=== PATIENT | female | born 1950 | race Caucasian/White ===

== ENCOUNTER → 2019-02-09 | Outpatient (REF) | payer MEDICARE | LOC: M SFHCPLAZ 17:29 | PROVIDERS: ATTEND Dermatology | DX: D23.5 Other benign neoplasm of skin of trunk (principal); L57.0 Actinic keratosis ==

== ENCOUNTER 2019-11-27 14:09 | Emergency (ER) | payer MEDICARE ==
[~2019-11-27] VITALS: Ht 167.6 cm; Wt 100.8 kg
[2019-11-27] MEDS ORDERED: ADVIL (14:20)
--- NOTE | 2019-11-27 15:18 | REP ---
Portable chest, 02:43 p.m., single AP view with the patient sitting: Comparison is the PA and lateral chest dated 09/15/2016. The lung hernandez are clear. The cardiac size is normal. The abilio, mediastinum, and skeletal structures are unremarkable. Impression: Negative portable chest. There is no interval change. Electronically Signed by Niraj Whaley MD 11/27/2019 03:09 P
[2019-11-27 15:23] LABS: BASO # 0.1 10^3/uL (0.0-0.2); BASO % 0.9 % (0.0-1.0); EOS # 0.5 10^3/uL (0.0-0.5); EOS % 5.5 % (0.0-3.0); HEMATOCRIT 46.2 % (36.0-47.0); HEMOGLOBIN 14.9 g/dl (12.0-15.5); LYMPH # 1.8 10^3/uL (1.5-5.0); LYMPH % 18.6 % (24.0-44.0); MEAN CORPUSCULAR HEMOGLOBIN 29.2 pg (27.0-33.0); MEAN CORPUSCULAR HGB CONC 32.3 g/dl (32.0-36.5); MEAN CORPUSCULAR VOLUME 90.4 fl (80.0-96.0); MONO # 0.8 10^3/uL (0.0-0.8); MONO % 8.8 % (0.0-5.0); NEUTROPHILS # 6.2 10^3/uL (1.5-8.5); NEUTROPHILS % 65.8 % (36.0-66.0); PLATELET COUNT, AUTOMATED 236 10^3/uL (150-450); RED BLOOD COUNT 5.11 10^6/uL (4.00-5.40); WHITE BLOOD COUNT 9.4 10^3/uL (4.0-10.0)
[2019-11-27 15:38] LABS: ALBUMIN 3.6 GM/DL (3.2-5.2); ALT/SGPT 26 U/L (12-78); BILIRUBIN,DIRECT < 0.1 MG/DL (0.0-0.2); BILIRUBIN,TOTAL 0.4 MG/DL (0.2-1.0); BLOOD UREA NITROGEN 12 MG/DL (7-18); CARBON DIOXIDE LEVEL 29 MEQ/L (21-32); CHLORIDE LEVEL 105 MEQ/L (98-107); CK-MB VALUE MASS 1.3 NG/ML (<3.6); CPK CREATINE PHOSPHOKINASE 72 U/L (26-192); CREATININE FOR GFR 0.75 MG/DL (0.55-1.30); GLOMERULAR FILTRATION RATE > 60.0 (>39); GLUCOSE, FASTING 92 MG/DL (70-100); LIPASE 262 U/L (73-393); MB/CK RELATIVE INDEX 1.81 (< OR =4); NT-PRO BNP 137 PG/ML (<125); POTASSIUM SERUM 3.9 MEQ/L (3.5-5.1); SODIUM LEVEL 138 MEQ/L (136-145); TOTAL PROTEIN 8.7 GM/DL (6.4-8.2); TROPONIN I < 0.02 NG/ML (< 0.10)
--- NOTE | 2019-11-27 16:44 | REP ---
Bilateral lower extremity deep vein duplex ultrasound: The deep veins demonstrate normal compression, normal Doppler color flow and normal Doppler waveforms with respiration augmentation from the popliteal veins to the common femoral veins bilaterally. Impression: There is no deep vein thrombus in the right or left lower extremities. 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 Electronically Signed by Niraj Whaley MD 11/27/2019 04:35 P
--- NOTE | 2019-11-27 16:47 | REP ---
CT of the chest without IV contrast: There are no comparison chest CT studies. Comparison is the portable plain film study performed earlier today. There are no infiltrates or pleural effusions. There are no masses or nodules. There is no mediastinal or axillary lymph node enlargement. The study is insensitive for hilar lymph node enlargement in the absence of IV contrast. The unenhanced thoracic aorta is unremarkable. Cardiac size is normal. There is no pericardial effusion. The visualized upper abdominal contents are unremarkable except for surgical clips in the gallbladder fossa. The Impression: Negative CT of the chest without IV contrast. Electronically Signed by Niraj Whaley MD 11/27/2019 04:38 P
--- NOTE | 2019-11-27 16:57 | REP ---
CT of the abdomen and pelvis without IV or bowel contrast: Comparison is 11/30/2007. The patient reportedly has an appendectomy and hysterectomy. The visualized lower lung hernandez are unremarkable. The unenhanced hepatic parenchyma, pancreas and spleen are unremarkable. There are surgical clips in the gallbladder fossa. The adrenals are unremarkable. There is a horseshoe kidney, as previously. Both right and left renal moiety is are unremarkable. The abdominal aorta is unremarkable. There is no periaortic adenopathy or mass. There is no bowel distension or obstruction. There is no focal or diffuse bowel wall thickening. There is no ascites, adenopathy or mass. Pelvis: The cecum and terminal ileum are unremarkable. The bladder is unremarkable. There is no adenopathy or ascites. The vaginal cuff and adnexa are unremarkable. The pelvic bowel loops are unremarkable. Impression: Cholecystectomy. Hysterectomy. Horseshoe kidney. Otherwise, negative CT study of the abdomen and pelvis. Electronically Signed by Niraj Whaley MD 11/27/2019 04:49 P
[2019-11-27] MEDS ORDERED: NS 1,000 ML IV SCH (18:13)
--- NOTE | 2019-11-27 20:42 | ECGEPIP ---
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
--- NOTE | 2019-11-27 20:45 | ECGEPIP ---
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
[2019-11-27 20:57] LABS: CK-MB VALUE MASS 1.4 NG/ML (<3.6); CPK CREATINE PHOSPHOKINASE 62 U/L (26-192); MB/CK RELATIVE INDEX 2.26 (< OR =4); TROPONIN I < 0.02 NG/ML (< 0.10)
[2019-11-27 21:16] VITALS: BP 162/82
== END 2019-11-27 21:40 | disposition home or self-care (01) ==
LOC: M ED 14:09
DX: B34.2 Coronavirus infection, unspecified (principal); I10 Essential (primary) hypertension; R06.02 Shortness of breath; M25.50 Pain in unspecified joint; M79.606 Pain in leg, unspecified; R22.43 Localized swelling, mass and lump, lower limb, bilateral; R68.83 Chills (without fever); L40.52 Psoriatic arthritis mutilans; G90.09 Other idiopathic peripheral autonomic neuropathy; J45.909 Unspecified asthma, uncomplicated; K52.9 Noninfective gastroenteritis and colitis, unspecified; M48.00 Spinal stenosis, site unspecified; I34.1 Nonrheumatic mitral (valve) prolapse; Q63.1 Lobulated, fused and horseshoe kidney; Z87.891 Personal history of nicotine dependence; Z91.041 Radiographic dye allergy status; Z88.2 Allergy status to sulfonamides; Z91.89 Other specified personal risk factors, not elsewhere classified

== ENCOUNTER → 2020-01-26 | Outpatient (CLI) | payer MEDICARE ==
[~2020-01-26] MED LIST: ADVIL
--- NOTE | 2020-01-26 15:09 | REPMRS ---
Patient History The patient states she had a clinical breast exam in January 2020. Patient is postmenopausal. Family history of endometrial cancer in sister, unknown cancer in sister, breast cancer in maternal grandmother. Digital Woman Screen Mammo: January 26, 2020 - Exam #: [id number] Bilateral CC and MLO view(s) were taken. Technologist: Jessica Jay, Technologist Prior study comparison: June 09, 2018, bilateral digital woman screen mammo, performed at [facility]. April 30, 2017, bilateral digital woman screen mammo, performed at [facility]. June 11, 2015, bilateral digital woman screen mammo, performed at [facility]. FINDINGS: The breast tissue is almost entirely fat. The Volpara volumetric breast density category is: A. There are stable fibroglandular elements in the upper outer quadrant of each breast unchanged. There has been no change in the appearance of the mammogram from the prior studies. There is no interval development of dominant mass, architectural distortion, or grouped microcalcification typical of malignancy. 3-D tomosynthesis shows no additional findings. Assessment: BI-RADS/ACR category 1 mammogram. Negative Mammogram. Recommendation Routine screening mammogram of both breasts in 1 year (for women over age 40). This patient's Lifetime Breast Cancer RIsk is estimated at 4.1 %. This mammogram was interpreted with the aid of an FDA-approved computer-aided dectection system. Electronically Signed By: Gordon Meier MD 01/26/20 [id number]
== END ==
LOC: M WHC 13:04
PROVIDERS: ATTEND Advanced Practice Midwife
DX: Z12.31 Encounter for screening mammogram for malignant neoplasm of breast (principal); Z78.0 Asymptomatic menopausal state; Z80.3 Family history of malignant neoplasm of breast; Z80.49 Family history of malignant neoplasm of other genital organs; Z80.8 Family history of malignant neoplasm of other organs or systems
CPT/HCPCS: 77063; 77067; G0463

== ENCOUNTER → 2021-02-13 | Outpatient (CLI) | payer MEDICARE ==
--- NOTE | 2021-02-13 11:17 | REPVR ---
PROCEDURE INFORMATION: Exam: CT Chest Without Contrast; Diagnostic Exam date and time: 02/13/2021 10:31 AM Age: 70 years old Clinical indication: Shortness of breath; Additional info: Abn findings lung field SOB h/o smoking TECHNIQUE: Imaging protocol: Diagnostic computed tomography of the chest without contrast. 3D rendering (Not supervised by radiologist): MIP and/or 3D reconstructed images were created by the technologist. Radiation optimization: All CT scans at this facility use at least one of these dose optimization techniques: automated exposure control; mA and/or kV adjustment per patient size (includes targeted exams where dose is matched to clinical indication); or iterative reconstruction. COMPARISON: CT Chest without contrast 11/27/2019 4:13 PM FINDINGS: Lungs: Unremarkable. No consolidation. No masses. Pleural spaces: Stable mild pleural thickening in the apices of the lungs. Stable small peripheral pleural tag the right perhaps may be slightly smaller on this exam. Heart: Unremarkable. No cardiomegaly. No pericardial effusion. Aorta: Unremarkable. No aortic aneurysm. Lymph nodes: Unremarkable. No enlarged lymph nodes. Bones/joints: Unremarkable. No acute fracture. Soft tissues: Unremarkable. Other findings: Stable mild vascular calcifications. Stable upper abdomen. IMPRESSION: No acute findings. Electronically signed by: Keith Dee On 02/13/2021 11:17:26 AM
== END ==
LOC: M RAD 10:22
PROVIDERS: ATTEND Nurse Practitioner Adult Health
DX: R06.02 Shortness of breath (principal); R91.8 Other nonspecific abnormal finding of lung field; Z87.891 Personal history of nicotine dependence

== ENCOUNTER → 2021-03-13 | Outpatient (CLI) | payer MEDICARE ==
[~2021-03-13] MED LIST changes: +METHACHOLINE KIT (J7674) INH ONE
--- NOTE | 2021-03-13 09:57 | PFTRPT ---
Site: [facility], [address] [place], [address] ID: [id number] Name: REAL HUDSON Visit Date: 03/13/2021 Second ID: [id number] Referring Doctor: Maritza Jc Reviewing Doctor: Jose Tello MD Filter Tank Operator: Bubba CHAUDHRY RRT Age: 71 : 1950 Sex: Female Race: Height: 66.00 Inches Weight: 215.00 Lbs BSA: 2.06 Order IDs: [id number] Requested Test(s): <RESP-PFT.METH CHAL> Diagnosis: R06.02 of albuterol for post bronchodilator. Review Status: Not Reviewed Pre-Bronch Post-Bronch Pred Actual %Pred Actual %Chng SPIROMETRY FVC (L) 3.14 2.37 75 2.39 FEV1 (L) 2.37 1.88 79 1.81 -3 FEV1/FVC (%) 75 79 105 76 -4 FEF 25% (L/sec) 4.88 3.91 80 5.17 32 FEF 50% (L/sec) 3.25 2.00 61 1.68 -16 FEF 75% (L/sec) 0.91 0.71 77 0.56 -21 FEF 25-75% (L/sec) 1.87 1.63 87 1.42 -12 FEF Max (L/sec) 5.72 5.04 88 5.28 4 FIVC (L) 2.06 2.43 17 FIF 50% (L/sec) 3.52 2.06 58 4.43 114 FIF Max (L/sec) 2.07 4.52 118 Expiratory Time (sec) 6.33 6.19 -2 Back Extrap Vol (L) 0.07 0.10 48 Time To FEFmax (sec) 0.078 0.104 32
== END ==
LOC: M CARPUL 08:45
PROVIDERS: ATTEND Nurse Practitioner Adult Health
DX: R06.02 Shortness of breath (principal)
CPT/HCPCS: 94070; 95070; J7674

== ENCOUNTER → 2021-04-21 | Outpatient (CLI) | payer MEDICARE ==
[~2021-04-21] MED LIST changes: -METHACHOLINE KIT (J7674) INH ONE
--- NOTE | 2021-04-21 13:23 | REP ---
INDICATION: SOB,COUGH. COMPARISON: Portable chest, 11/27/2019. TECHNIQUE: PA and lateral chest images were performed. FINDINGS: There is stable linear scarring in the lingula. The lungs are otherwise clear. The heart borders and mediastinum normal. The upper abdominal bowel gas pattern is normal. There is multilevel degenerative disc disease of the thoracic spine. IMPRESSION: No evidence of acute cardiopulmonary pathology. Stable linear scarring in the lingula. <Electronically signed by Edgar Chavez > 04/21/21 [id number]
== END ==
LOC: M PLALAB 11:42
PROVIDERS: ATTEND Physician Assistant
DX: R06.02 Shortness of breath (principal); R05 Cough; J98.4 Other disorders of lung

== ENCOUNTER → 2021-05-07 | Outpatient (CLI) | payer MEDICARE ==
[2021-05-07 14:16] LABS: HEMATOCRIT 38.8 % (36.0-47.0); HEMOGLOBIN 12.4 g/dl (12.0-15.5); MEAN CORPUSCULAR HEMOGLOBIN 30.5 pg (27.0-33.0); MEAN CORPUSCULAR VOLUME 95.6 fl (80.0-96.0); PLATELET COUNT, AUTOMATED 185 10^3/uL (150-450); RED BLOOD COUNT 4.06 10^6/uL (4.00-5.40); WHITE BLOOD COUNT 11.3 10^3/uL (4.0-10.0)
[2021-05-07 14:48] LABS: C REACTIVE PROTEIN QUANTITATIV 1.16 MG/DL (0.00-0.30); RHEUMATOID FACTOR QUANT < 10.0 IU/ML (<15.0); URIC ACID 5.6 MG/DL (2.6-6.0)
[2021-05-07 14:55] LABS: ERYTHROCYTE SEDIMENTATION RATE 37 mm/hr (0-30)
== END ==
LOC: M PLALAB 11:42
PROVIDERS: ATTEND Physician Assistant Surgical
DX: M17.12 Unilateral primary osteoarthritis, left knee (principal); J45.909 Unspecified asthma, uncomplicated

== ENCOUNTER → 2021-06-03 | Outpatient (CLI) | payer MEDICARE ==
--- NOTE | 2021-06-05 12:02 | REPVR ---
PROCEDURE INFORMATION: Exam: MR Lumbar Spine Without Contrast Exam date and time: 06/03/2021 12:22 PM Age: 71 years old Clinical indication: Low back pain; Additional info: Oa of lt knee TECHNIQUE: Imaging protocol: Multiplanar magnetic resonance images of the lumbar spine without intravenous contrast. COMPARISON: None available. FINDINGS: Vertebrae: There is 5 mm of grade 1 anterolisthesis of L4 with respect to L5. Normal vertebral body alignment is otherwise preserved. Vertebral body heights are within normal limits. Spinal cord: The conus medullaris terminates at L1/2. The patient has a congenitally narrowed spinal canal. L1-L2: There is shallow disc bulging. There is mild facet hypertrophy. The spinal canal and neural foramina are patent. L2-L3: There is shallow disc bulging. There is moderate facet hypertrophy. The spinal canal and neural foramina are patent. L3-L4: There is diffuse disc bulging. There is prominence of the dorsal epidural fat. There is moderate facet and ligamentous hypertrophy. There is severe canal stenosis, with central clumping of nerve roots. There is bukd-nq-kdilmcox right neural foraminal narrowing. L4-L5: There is diffuse disc bulging/uncovering related to listhesis. There is severe facet hypertrophy. There is severe canal stenosis, with central clumping of nerve roots. There is moderate bilateral neural foraminal narrowing. L5-S1: There is diffuse disc bulging. There is moderate facet hypertrophy. There is moderate bilateral neural foraminal narrowing. Soft tissues: Unremarkable. Renal: There is a horseshoe configuration of the kidneys. IMPRESSION: Degenerative disc disease and spondylosis in a patient with a congenitally narrowed spinal canal and focal prominence of the dorsal epidural fat. Changes contribute to severe canal stenosis at L3/4 and L4/5. There is multilevel sond-ja-geftrqgz neural foraminal narrowing. Electronically signed by: Selma Hutchinson On 06/05/2021 12:01:54 PM
== END ==
LOC: M PLAIMG 11:34
PROVIDERS: ATTEND Physician Assistant Surgical
DX: M17.12 Unilateral primary osteoarthritis, left knee (principal); M51.26 Other intervertebral disc displacement, lumbar region; M48.061 Spinal stenosis, lumbar region without neurogenic claudication; M47.816 Spondylosis without myelopathy or radiculopathy, lumbar region

== ENCOUNTER → 2021-07-18 | Outpatient (CLI) | payer MEDICARE ==
[~2021-07-18] MED LIST changes: +ACET-897 PO; +ADVA115A; +ALBU8.5H; +APPLCAP PO; +D31000TA2 PO; +DULO1CAP6; +HYDR12.55; +LOSA50TA28; +RA B1TAB2 PO
== END ==
LOC: M WHC 14:21
PROVIDERS: ATTEND Advanced Practice Midwife
DX: Z01.419 Encounter for gynecological examination (general) (routine) without abnormal findings (principal); Z12.31 Encounter for screening mammogram for malignant neoplasm of breast; Z78.0 Asymptomatic menopausal state; Z80.49 Family history of malignant neoplasm of other genital organs; Z80.3 Family history of malignant neoplasm of breast
CPT/HCPCS: 77063; 77067; G0101

== ENCOUNTER → 2021-08-23 | Outpatient (CLI) | payer MEDICARE ==
[~2021-08-23] MED LIST changes: -LOSA50TA28; +LOSA50TA88
== END ==
LOC: M LABSMTC 10:08
PROVIDERS: ATTEND Anesthesiology
DX: Z01.812 Encounter for preprocedural laboratory examination (principal); Z20.822 Contact with and (suspected) exposure to COVID-19

== ENCOUNTER 2021-08-28 12:17 | Day surgery (SDC) | payer MEDICARE ==
[~2021-08-28] VITALS: Ht 167.6 cm; Wt 95.3 kg
[~2021-08-28 12:17] MED LIST changes: +NS 1,000 ML IV ONE
--- OUTSIDE RECORDS SUMMARY | 2021-08-28 12:24 | CCD | Continuity of Care Document ---
Author Ary Carballo ANP Organization Unknown Address [address] [place] [address] Phone [phone] Care Team Providers Care Lock Assembler Name Role Phone AUTM Unavailable Yoseph Palacios AUTM [phone] Denny Augustin AUTM Problems Description No Information Available Social History Type Date Description Comments Sex Unknown Tobacco Use Start: 09/20/56 End: 09/20/87 Patient is a forme r smoker hx of 1/2-1 ppd Smoking Status Reviewed: 06/23/21 Patient is a former smoker hx of 1/2-1 ppd Allergies, Adverse Reactions, Alerts Active Allergies Criticality Reaction | Severity Comments Date Latex Unable to assess criticality 01/27/2021 Inactive Allergies Contrast Dye Unable to assess criticality 01/27/2021 Medications Active Medications SIG Qnty Indications Ordering Provide r Date Advair HFA 115-21mcg/Act Aerosol 2 puff twice a day 12gm J45.40 DONNA Toro 03/19/2021 Albuterol Sulfate HFA 108(90Base) mcg/Act Aerosol 2 puffs four times a day as needed 8.500gm DONNA Benson 02/20/2021 Aerochamber Plus Rupesh-Vu Misc use with inhaler as needed 1units R06.02 DONNA Toro 02/20/2021 Vitamin B 12 500mcg Tablets 1 tab by mouth every day Unknown Aspirin [address] 1 tab by mouth every day Unknown Cymbalta 60mg Caps DR Part 1 tab by mouth every day Unknown Hydrochlorothiazide 12.5mg Tablets 1 tab by mouth every day Unknown Losartan Potassium 50mg Tablets 1 tab by mouth every day Unknown Multivitamin Tablets 1 tab by mouth every day Unknown Immunizations Description No Information Available Vital Signs Date Vital Result Comment 06/23/2021 10:26am BP Systolic 126 mmHg BP Diastolic 80 mmHg Heart Rate 103 /min O2 % BldC Oximetry 91 % Respiratory Rate 20 /min Height 66 inches 5'6" Weight 217.00 lb BMI (Body Mass Index) 35.0 kg/m2 [place] Body Weight 130 lb Weight 98.431 kg BSA (Body Surface Area) 2.07 m2 05/06/2021 9:09am BP Systolic 118 mmHg BP Diastolic 68 mmHg Heart Rate 87 /min O2 % BldC Oximetry 96 % Height 66 inches 5'6" Weight 226.00 lb BMI (Body Mass Index) 36.5 kg/m2 [place] Body Weight 130 lb Weight 102.514 kg BSA (Body Surface Area) 2.11 m2 Results Test Acquired Date Facility Test Result H/L Range Note [facility] 06/23/2021 [facility] SEE IMAGE FVC-Pred 3.14 L FVC-Pre 2.49 L FVC-%Pred-Pre 79 L FVC-LLN 2.40 L Fev1-Pred 2.37 L Fev1-Pre 1.72 L Fev1-%Pred-Pre 72 L Fev1-LLN 1.74 L Fev6-Pred 2.99 L Fev6-Pre 2.38 L Fev6-%Pred-Pre 79 L Fev6-LLN 2.27 L Lpj2bpl-Aide 75 % Myj1fme-Ibc 69 % Hmi2ohq-%Pred-Pre 91 % Joh9evt-RIV 65 % Hln9vel-Lyhg 95 % Rcu9yds-Zzf 95 % Ncg9xpv-%Pred-Pre 100 % FEFMax-Pred 5.72 L/E/sec FEFMax-Pre 5.09 L/E/sec FEFMax-%Pred-Pre 88 L/E/sec FEFMax-LLN 3.90 L/E/sec Nun5164-Fhzi 1.87 L/E/sec Ici9012-Zot 1.01 L/E/sec Kla5939-%Pred-Pre 53 L/E/sec Gfl4815-EZG 0.55 L/E/sec ExpTime-Pre 8.98 sec Gju5bss8-Shdd 79 % Xlw6ncc7-Uru 72 % Wdf1xho2-%Pred-Pre 91 % Ufe9jca7-ZYF 70 % FVL/[place] 01/27/2021 [facility] SEE IMAGE FVC-Pred 3.17 L FVC-Pre 2.32 L FVC-%Pred-Pre 73 L FVC-LLN 2.44 L Fev1-Pred 2.40 L Fev1-Pre 1.77 L Fev1-%Pred-Pre 73 L Fev1-LLN 1.77 L Fev6-Pred 3.03 L Fev6-Pre 2.32 L Fev6-%Pred-Pre 76 L Fev6-LLN 2.31 L Lxa9ybn-Sbgz 76 % Ylf0evm-Hfr 76 % Myg0hqt-%Pred-Pre 100 % Iqc6uyd-QEW 66 % Fpx1nwt-Xttr 96 % Crq3txd-Hpn 100 % Cky8vtj-%Pred-Pre 104 % FEFMax-Pred 5.80 L/E/sec FEFMax-Pre 4.61 L/E/sec FEFMax-%Pred-Pre 79 L/E/sec FEFMax-LLN 3.98 L/E/sec Kdy0445-Ujqx 1.92 L/E/sec Qfe5711-Tun 1.40 L/E/sec Gni4988-%Pred-Pre 72 L/E/sec Mzh3540-FPS 0.60 L/E/sec ExpTime-Pre 5.12 sec Esf0hvq5-Udsv 79 % Uwy2zjg1-Vpz 76 % Kwk4sei3-%Pred-Pre 96 % Ydg1tay8-WID 70 % Procedures Date Code Description Status 05/06/2021 44964 Office/Outpatient Established Lo w MDM 20-29 Min Completed 05/06/2021 81435 Spirometry Completed 03/19/2021 36452 Office/Outpatient Established Mo d MDM 30-39 Min Completed 02/20/2021 26496 Office/Outpatient Established Mo d MDM 30-39 Min Completed 01/30/2021 37988 Diffusing Capacity Completed 01/30/2021 02673 Plethysmography Determination Nazia ng Volumes & Per Airway Resist Completed 01/30/2021 34026 Bronchospasm Evaluation Complete d 01/27/2021 68901 Office/Outpatient New Moderate M DM 45-59 Minutes Completed 01/27/2021 13016 Spirometry Completed Medical Devices Description No Information Available Encounters Type Date Location Provider Dx Diagnosis Office Visit 05/06/2021 9:30a [facility] Maritza To july, DONNA J45.40 Moderate persistent asthma, uncomplicate d Office Visit 03/19/2021 4:00p [facility] Maritza To july, ANP J45.40 Moderate persistent asthma, uncomplicate d Office Visit 02/20/2021 2:00p [facility] Maritza To july, ANP R06.02 Shortness of breath R06.2 Wheezing Office Visit 01/27/2021 10:00a [facility] Maritza To july, ANP R06.02 Shortness of breath R06.2 Wheezing R06.83 Snoring Assessments Date Code Description Provider 06/23/2021 J45.40 Moderate persistent asthma, unco mplicated Maritza Chavo, ANP 06/23/2021 R06.02 Shortness of breath Maritza Chavo, ANP 05/06/2021 J45.40 Moderate persistent asthma, unco mplicated Maritza Chavo, ANP 03/19/2021 J45.40 Moderate persistent asthma, unco mplicated Maritza Chavo, ANP 02/20/2021 R06.02 Shortness of breath Maritza Chavo, ANP 02/20/2021 R06.2 Wheezing Maritza Chavo, ANP 01/30/2021 R06.02 Shortness of breath Pulmonary [facility] 01/27/2021 R06.02 Shortness of breath Maritza Chavo, ANP 01/27/2021 R06.2 Wheezing Maritza Chavo, ANP 01/27/2021 R06.83 Snoring Maritza Tony ANP Plan of Treatment Future Appointment(s):* 10/02/2021 11:30 am - DONNA Toro at [facility] * 06/26/2021 12:00 pm - Nocturnal Oximetry at [facility] * 07/14/2021 9:45 am - BARBARA Zarate at [facility] 06/23/2021 - DONNA Toro* J45.40 Moderate persistent asthma, uncomplicated * R06.02 Shortness of breath * * New Labs:* [facility]VL/[facility], Scheduled: 10/02/21 * New Orders:* Nocturnal Oximetry, Scheduled: 06/26/21 * Follow up:* Follow up 3 months with fvl/spirometry. Nocturnal oximetry-I will call with results. Functional Status Description No Information Available Mental Status Description No Information Available Referrals Refer to Dr Reason for Referral Status Appt Date Arlene MCFADDEN, Jacob Arrington MD COLONOSCOPY Scheduled [address] [place] [phone] Radiology/Procedure 39312 Closed 02/13/2021 Maritza Tony A.N.P. SOB Closed 01/27/2021 [facility] [address] [place], [place] [address] [phone]
--- OUTSIDE RECORDS SUMMARY | 2021-08-28 12:24 | CCD | Continuity of Care Document ---
Author Author Ary MATTHEWS PA Organization Unknown Address [address] [facility], [address] [place] [address] Phone [phone] Care Team Providers Care Electronics Tester Name Role Phone AUTM Unavailable Yoseph Palacios AUTM [phone] Denny Augustin AUTM Problems Active Problems Provider Date Essential hypertension Onset: 07/10/2021 Social History Type Date Description Comments Sex Unknown ETOH Use 3 A Week Tobacco Use Start: 09/20/56 End: 09/20/87 Patient is a forme r smoker 1 ppd for 30 years quit 1987 Recreational Drug Use Denies Drug Use Smoking Status Reviewed: 06/23/21 Patient is a former smoker 1 ppd for 30 years quit 1987 Allergies and adverse reactions Active Allergies Criticality Reaction | Severity Comments Date Latex Unable to assess criticality Red Abrasions 01/27/2021 Inactive Allergies Contrast Dye Unable to assess criticality 01/27/2021 Medications Active Medications SIG Qnty Indications Ordering Provide r Date Advair HFA 115-21mcg/Act Aerosol 2 puff twice a day 12gm J45.40 Maritza Tony, A.N.P. 03/19/2021 Albuterol Sulfate HFA 108(90Base) mcg/Act Aerosol 2 puffs four times a day as needed 8.500gm Maritza arredondo A.N.P. 02/20/2021 Aerochamber Plus Rupesh-Vu Misc use with inhaler as needed 1units R06.02 Maritza Tony, A.N.P. 02/20/2021 Vitamin B 12 500mcg Tablets 1 tab by mouth every day Unknown Aspirin [address] 1 tab by mouth every day Unknown Cymbalta 60mg Caps DR Part 1 tab by mouth 2 x every day Unknown Hydrochlorothiazide 12.5mg Tablets 1 tab by mouth every day Unknown Losartan Potassium 50mg Tablets 1 tab by mouth every day Unknown Multivitamin Tablets 1 tab by mouth every day Unknown Turmeric Curcumin 500mg Capsules 1 cap by mouth every day Unknown Immunizations Description No Information Available Vital Signs Date Vital Result Comment 07/14/2021 9:36am BP Systolic 158 mmHg BP Diastolic 74 mmHg Body Temperature 96.0 F Height 66 inches 5'6" Weight 214.38 lb BMI (Body Mass Index) 34.6 kg/m2 [place] Body Weight 130 lb Weight 97.240 kg BSA (Body Surface Area) 2.06 m2 06/23/2021 10:26am BP Systolic 126 mmHg BP Diastolic 80 mmHg Heart Rate 103 /min O2 % BldC Oximetry 91 % Respiratory Rate 20 /min Height 66 inches 5'6" Weight 217.00 lb BMI (Body Mass Index) 35.0 kg/m2 [place] Body Weight 130 lb Weight 98.431 kg BSA (Body Surface Area) 2.07 m2 Results Test Acquired Date Facility Test Result H/L Range Note FVL/Chucho 06/23/2021 [employer] PDFReport SEE IMAGE FVC-Pred 3.14 L FVC-Pre 2.49 L FVC-%Pred-Pre 79 L FVC-LLN 2.40 L Fev1-Pred 2.37 L Fev1-Pre 1.72 L Fev1-%Pred-Pre 72 L Fev1-LLN 1.74 L Fev6-Pred 2.99 L Fev6-Pre 2.38 L Fev6-%Pred-Pre 79 L Fev6-LLN 2.27 L Owv3wal-Bwgv 75 % Psm2qdk-Tsg 69 % Bco1nyf-%Pred-Pre 91 % Tia0uqa-GRZ 65 % Fjy9nyh-Hiwx 95 % Sbh5fez-Hmk 95 % Dnq2usw-%Pred-Pre 100 % FEFMax-Pred 5.72 L/E/sec FEFMax-Pre 5.09 L/E/sec FEFMax-%Pred-Pre 88 L/E/sec FEFMax-LLN 3.90 L/E/sec Wgx0285-Wgvl 1.87 L/E/sec Gvk1910-Axc 1.01 L/E/sec Tfj2372-%Pred-Pre 53 L/E/sec Drn4656-TNY 0.55 L/E/sec ExpTime-Pre 8.98 sec Wkl3qfg2-Mzxn 79 % Snl1hhj7-Vyi 72 % Akw4dxr2-%Pred-Pre 91 % Ebi7wch6-RUN 70 % FVL/Chucho 01/27/2021 Sovicell PDFReport SEE IMAGE FVC-Pred 3.17 L FVC-Pre 2.32 L FVC-%Pred-Pre 73 L FVC-LLN 2.44 L Fev1-Pred 2.40 L Fev1-Pre 1.77 L Fev1-%Pred-Pre 73 L Fev1-LLN 1.77 L Fev6-Pred 3.03 L Fev6-Pre 2.32 L Fev6-%Pred-Pre 76 L Fev6-LLN 2.31 L Obg5fdr-Qiep 76 % Nxf2ofp-Hgz 76 % Ezh9wjf-%Pred-Pre 100 % Kzx7jwh-FHC 66 % Tiz0sot-Oukb 96 % Qpo5tlo-Ioz 100 % Puf0fkk-%Pred-Pre 104 % FEFMax-Pred 5.80 L/E/sec FEFMax-Pre 4.61 L/E/sec FEFMax-%Pred-Pre 79 L/E/sec FEFMax-LLN 3.98 L/E/sec Zsu9111-Vwhz 1.92 L/E/sec Kag3184-Dir 1.40 L/E/sec Yyu5519-%Pred-Pre 72 L/E/sec Aud9846-QTD 0.60 L/E/sec ExpTime-Pre 5.12 sec Mfq5nco4-Xksb 79 % Pjn9szr2-Dzf 76 % Wlz0doy8-%Pred-Pre 96 % Ibm0xur4-HUW 70 % Procedures Date Code Description Status 06/23/2021 79388 Office/Outpatient Established Mo d MDM 30-39 Min Completed 06/23/2021 47332 Spirometry Completed 05/06/2021 87358 Office/Outpatient Established Lo w MDM 20-29 Min Completed 05/06/2021 60390 Spirometry Completed 03/19/2021 90488 Office/Outpatient Established Mo d MDM 30-39 Min Completed 02/20/2021 17403 Office/Outpatient Established Mo d MDM 30-39 Min Completed 01/30/2021 06370 Diffusing Capacity Completed 01/30/2021 60872 Plethysmography Determination Nazia ng Volumes & Per Airway Resist Completed 01/30/2021 35899 Bronchospasm Evaluation Complete d 01/27/2021 49813 Office/Outpatient New Moderate M DM 45-59 Minutes Completed 01/27/2021 40221 Spirometry Completed Medical Devices Description No Information Available Encounters Type Date Location Provider Dx Diagnosis Office Visit 06/23/2021 10:30a [facility] Maritza To wne, A.N.P. J45.40 Moderate persistent asthma, uncomplicate d R06.02 Shortness of breath Office Visit 05/06/2021 9:30a [facility] Maritza To wne, A.N.P. J45.40 Moderate persistent asthma, uncomplicate d Office Visit 03/19/2021 4:00p [facility] Marizta To wne, A.N.P. J45.40 Moderate persistent asthma, uncomplicate d Office Visit 02/20/2021 2:00p [facility] Maritza To wne, A.N.P. R06.02 Shortness of breath R06.2 Wheezing Office Visit 01/27/2021 10:00a [facility] Maritza To wne, A.N.P. R06.02 Shortness of breath R06.2 Wheezing R06.83 Snoring Assessments Date Code Description Provider 07/14/2021 Z12.11 Encounter for screening for ab gnant neoplasm of colon BARBARA Zarate 07/14/2021 K57.30 Diverticulosis of la rge intestine without perforation or abscess without bleeding BARBARA Zarate 07/14/2021 K64.9 Unspecified hemorrhoids BARBARA Vázquez 06/23/2021 J45.40 Moderate persistent asthma, unco mplicated Maritza Tony, A.N.P. 06/23/2021 R06.02 Shortness of breath Maritza Tony, A.N.P. 05/06/2021 J45.40 Moderate persistent asthma, unco mplicated Maritza Chavo, A.N.P. 03/19/2021 J45.40 Moderate persistent asthma, unco mplicated Maritza Chavo, A.N.P. 02/20/2021 R06.02 Shortness of breath Maritza Chavo, A.N.P. 02/20/2021 R06.2 Wheezing Maritza Chavo, A.N. P. 01/30/2021 R06.02 Shortness of breath Pulmonary La [facility] 01/27/2021 R06.02 Shortness of breath Maritza Chavo, A.N.P. 01/27/2021 R06.2 Wheezing Maritza Chavo, A.N. P. 01/27/2021 R06.83 Snoring Maritza Beee, A.N. P. Plan of Treatment Future Appointment(s):* 10/02/2021 11:30 am - Maritza Tony, A.N.P. at [facility] 07/14/2021 - BARBARA Zarate* Z12.11 Encounter for screening for malignant neoplasm of colon * K57.30 Diverticulosis of large intestine without perforation or abscess without bleeding * K64.9 Unspecified hemorrhoids Functional Status Description No Information Available Mental Status Description No Information Available Referrals Refer to Reason for Referral Status Appt Date Jacob Jacobs JR, MD COLONOSCOPY Scheduled [address] [address] [phone] Radiology/Procedure [id number] Closed 02/13/2021
--- OUTSIDE RECORDS SUMMARY | 2021-08-28 12:24 | CCD | Continuity of Care Document ---
Author Ary Carballo ANP Organization Unknown Address [address] [place] [address] Phone [phone] Care Team Providers Care Director Of Distribution Name Role Phone AUTM Unavailable Yoseph Palacios AUTM [phone] Denny Augustin AUTM [phone] Problems Description No Information Available Social History Type Date Description Comments Sex Unknown Tobacco Use Start: 09/20/56 End: 09/20/87 Patient is a forme r smoker hx of 12-1 ppd Smoking Status Reviewed: 06/23/21 Patient is a former smoker hx of 1/2-1 ppd Allergies and adverse reactions Active Allergies Criticality [...] lb BMI (Body Mass Index) 35.0 kg/m2 [place] Body Weight 130 lb Weight 98.431 kg BSA (Body Surface Area) 2.07 m2 05/06/2021 9:09am BP Systolic 118 mmHg BP Diastolic 68 mmHg Heart Rate 87 /min O2 % BldC Oximetry 96 % Height 66 inches 5'6" Weight 226.00 lb BMI (Body Mass Index) 36.5 kg/m2 [place] Body Weight 130 lb Weight 102.514 kg BSA (Body Surface Area) 2.11 m2 Results Test Acquired Date Facility Test Result H/L Range Note FVL/Stephen 06/23/2021 [employer] PDFReport SEE IMAGE FVC-Pred 3.14 L FVC-Pre 2.49 L FVC-%Pred-Pre 79 L FVC-LLN 2.40 L Fev1-Pred 2.37 L Fev1-Pre 1.72 L Fev1-%Pred-Pre 72 L Fev1-LLN 1.74 L Fev6-Pred 2.99 L Fev6-Pre 2.38 L Fev6-%Pred-Pre 79 L Fev6-LLN 2.27 L Ayu6pwy-Xzzh 75 % Tja6wtx-Low 69 % Mkj0mnk-%Pred-Pre 91 % Ylv7ewy-EXL 65 % Sjb4ybp-Dhhs 95 % Jzs2dke-Pyr 95 % Trk7irg-%Pred-Pre 100 % FEFMax-Pred 5.72 L/E/sec FEFMax-Pre 5.09 L/E/sec FEFMax-%Pred-Pre 88 L/E/sec FEFMax-LLN 3.90 L/E/sec Hjl6359-Fgoy 1.87 L/E/sec Xlm9883-Hfz 1.01 L/E/sec Vin8206-%Pred-Pre 53 L/E/sec Tci9759-VYW 0.55 L/E/sec ExpTime-Pre 8.98 sec Fan8iqn0-Dnpj 79 % Yyc4nym9-Jsr 72 % Kat8iku6-%Pred-Pre 91 % Ypn8rxp8-AVO 70 % FVL/Stephen 01/27/2021 Dekkun PDFReport SEE IMAGE FVC-Pred 3.17 L FVC-Pre 2.32 L FVC-%Pred-Pre 73 L FVC-LLN 2.44 L Fev1-Pred 2.40 L Fev1-Pre 1.77 L Fev1-%Pred-Pre 73 L Fev1-LLN 1.77 L Fev6-Pred 3.03 L Fev6-Pre 2.32 L Fev6-%Pred-Pre 76 L Fev6-LLN 2.31 L Khj7ykg-Arim 76 % Fgd1xom-Ytt 76 % Cyx7rcv-%Pred-Pre 100 % Bmq0geq-XHR 66 % Eiq5wlz-Ctvc 96 % Zob7jif-Bmc 100 % Yuz4zuz-%Pred-Pre 104 % FEFMax-Pred 5.80 L/E/sec FEFMax-Pre 4.61 L/E/sec FEFMax-%Pred-Pre 79 L/E/sec FEFMax-LLN 3.98 L/E/sec Kkj2074-Sllb 1.92 L/E/sec Erq0017-Jta 1.40 L/E/sec Osp8356-%Pred-Pre 72 L/E/sec Rum4035-OWZ 0.60 L/E/sec ExpTime-Pre 5.12 sec Jsl8ycc5-Emcw 79 % Rnr3fib8-Mtw 76 % Jue2fbv5-%Pred-Pre 96 % Rew2pbu1-YBX 70 % Procedures Date Code Description Status 06/23/2021 07639 Office/Outpatient Established Mo d MDM 30-39 Min Completed 06/23/2021 56925 Spirometry Completed 05/06/2021 11461 Office/Outpatient Established Lo w MDM 20-29 Min Completed 05/06/2021 52136 Spirometry Completed 03/19/2021 43460 Office/Outpatient Established Mo d MDM 30-39 Min Completed 02/20/2021 56019 Office/Outpatient Established Mo d MDM 30-39 Min Completed 01/30/2021 12921 Diffusing Capacity Completed 01/30/2021 38929 Plethysmography Determination Nazia ng Volumes & Per Airway Resist Completed 01/30/2021 51509 Bronchospasm Evaluation Complete d 01/27/2021 96181 Office/Outpatient New Moderate M DM 45-59 Minutes Completed 01/27/2021 64323 Spirometry Completed Medical Devices Description No Information Available Encounters Type Date Location Provider Dx Diagnosis Office Visit 06/23/2021 10:30a [facility] Maritza To [facility], ANP J45.40 Moderate persistent asthma, uncomplicate d R06.02 Shortness of breath Office Visit 05/06/2021 9:30a [facility] Maritza To [facility], ANP J45.40 Moderate persistent asthma, uncomplicate d Office Visit 03/19/2021 4:00p [facility] Maritza To [facility], ANP J45.40 Moderate persistent asthma, uncomplicate d Office Visit 02/20/2021 2:00p [facility] Maritza To gregory ANP R06.02 Shortness of breath R06.2 Wheezing Office Visit 01/27/2021 10:00a [facility] Maritza To [facility], ANP R06.02 Shortness of breath R06.2 Wheezing R06.83 Snoring Assessments Date Code Description Provider 06/23/2021 J45.40 Moderate persistent asthma, unco mplicated Maritza Tony, ANP 06/23/2021 R06.02 Shortness of breath Maritza Tony, ANP 05/06/2021 J45.40 Moderate persistent asthma, unco mplicated Maritza Chavo, ANP 03/19/2021 J45.40 Moderate persistent asthma, unco mplicated Maritza Chavo, ANP 02/20/2021 R06.02 Shortness of breath Maritza Chavo, ANP 02/20/2021 R06.2 Wheezing Maritza Chavo, ANP 01/30/2021 R06.02 Shortness of breath Pulmonary La b 01/27/2021 R06.02 Shortness of breath Maritza Chavo, ANP 01/27/2021 R06.2 Wheezing Maritza Tony, ANP 01/27/2021 R06.83 Snoring DONNA Toro Plan of Treatment Future Appointment(s):* 10/02/2021 11:30 am - DONNA Toro at [facility] * 06/26/2021 12:00 pm - Nocturnal Oximetry at [facility] * 07/14/2021 9:45 am - BARBARA Zarate at [facility] 06/23/2021 - DONNA Toro* J45.40 Moderate persistent asthma, uncomplicated * R06.02 Shortness of breath * * New Labs:* FVL/Chucho, Scheduled: 10/02/21 * New Orders:* Nocturnal Oximetry, Scheduled: 06/26/21 * Follow up:* Follow up 3 months with fvl/spirometry. Nocturnal oximetry-I will call with results. Functional Status Description No Information Available Mental Status Description No Information Available Referrals Refer to Reason for Referral Status Appt Date Jacob Jacobs JR, MD COLONOSCOPY Scheduled 1 6 [facility] [address] [place] [address] [phone] Radiology/Procedure [id number] Closed 02/13/2021 Maritza Tony A.N.P. SOB Closed 01/27/2021 [facility] [address] [place], [place] [address] [phone]
--- OUTSIDE RECORDS SUMMARY | 2021-08-28 12:24 | CCD | Continuity of Care Document ---
Author Ary Carballo ANP Organization Unknown Address [address] [place] [address] Phone [phone] Care Team Providers Care Geospatial Engineer Name Role Phone AUTM Unavailable Yoseph Palacios AUTM [phone] Denny Augustin AUTM [phone] Problems Description No Information Available Social [...] lb BMI (Body Mass Index) 35.0 kg/m2 [place] Body Weight 130 lb Weight 98.431 kg BSA (Body Surface Area) 2.07 m2 05/06/2021 9:09am BP Systolic 118 mmHg BP Diastolic 68 mmHg Heart Rate 87 /min O2 % BldC Oximetry 96 % Height 66 inches 5'6" Weight 226.00 lb BMI (Body Mass Index) 36.5 kg/m2 [place] Body Weight 130 lb Weight 102.514 kg BSA (Body Surface Area) 2.11 m2 Results Test Acquired Date Facility Test Result H/L Range Note FVL/Randall 06/23/2021 Medgraphics PDFReport SEE IMAGE FVC-Pred 3.14 L FVC-Pre 2.49 L FVC-%Pred-Pre 79 L FVC-LLN 2.40 L Fev1-Pred 2.37 L Fev1-Pre 1.72 L Fev1-%Pred-Pre 72 L Fev1-LLN 1.74 L Fev6-Pred 2.99 L Fev6-Pre 2.38 L Fev6-%Pred-Pre 79 L Fev6-LLN 2.27 L Axq6qap-Lmra 75 % Dbo4omc-Wfb 69 % Vep8ebc-%Pred-Pre 91 % Wbg0lzg-DZP 65 % Nep5xdr-Zoqw 95 % Ymt0hca-Cxs 95 % Ybg9fny-%Pred-Pre 100 % FEFMax-Pred 5.72 L/E/sec FEFMax-Pre 5.09 L/E/sec FEFMax-%Pred-Pre 88 L/E/sec FEFMax-LLN 3.90 L/E/sec Huo3237-Ztxd 1.87 L/E/sec Qyi2528-Wqf 1.01 L/E/sec Hqq7476-%Pred-Pre 53 L/E/sec Qvd2069-XOM 0.55 L/E/sec ExpTime-Pre 8.98 sec Kqy7onc1-Cdba 79 % Ivv6wjl8-Lgj 72 % Hhe5zfj1-%Pred-Pre 91 % Dxn1lbq9-CAE 70 % FVL/Randall 01/27/2021 Eqalix PDFReport SEE IMAGE FVC-Pred 3.17 L FVC-Pre 2.32 L FVC-%Pred-Pre 73 L FVC-LLN 2.44 L Fev1-Pred 2.40 L Fev1-Pre 1.77 L Fev1-%Pred-Pre 73 L Fev1-LLN 1.77 L Fev6-Pred 3.03 L Fev6-Pre 2.32 L Fev6-%Pred-Pre 76 L Fev6-LLN 2.31 L Nay3nnv-Tdmz 76 % Lpg1ogi-Trz 76 % Puf2hml-%Pred-Pre 100 % Mbs5zxp-AKX 66 % Uxa3obo-Jwdg 96 % Esv0hop-Hfk 100 % Sbq9skr-%Pred-Pre 104 % FEFMax-Pred 5.80 L/E/sec FEFMax-Pre 4.61 L/E/sec FEFMax-%Pred-Pre 79 L/E/sec FEFMax-LLN 3.98 L/E/sec Wll4522-Fegv 1.92 L/E/sec Pzz9921-Hzq 1.40 L/E/sec Ahe0649-%Pred-Pre 72 L/E/sec Wqq1107-EIU 0.60 L/E/sec ExpTime-Pre 5.12 sec Rgd4xsb3-Svkn 79 % Wkt0apn1-Jew 76 % Xcf3gnj7-%Pred-Pre 96 % Vjy6vyo4-UFJ 70 % Procedures Date Code Description Status 06/23/2021 14263 Office/Outpatient Established Mo d MDM 30-39 Min Completed 06/23/2021 44617 Spirometry Completed 05/06/2021 68800 Office/Outpatient Established Lo w MDM 20-29 Min Completed 05/06/2021 37650 Spirometry Completed 03/19/2021 34471 Office/Outpatient Established Mo d MDM 30-39 Min Completed 02/20/2021 81334 Office/Outpatient Established Mo d MDM 30-39 Min Completed 01/30/2021 65877 Diffusing Capacity Completed 01/30/2021 00035 Plethysmography Determination Nazia ng Volumes & Per Airway Resist Completed 01/30/2021 88631 Bronchospasm Evaluation Complete d 01/27/2021 59113 Office/Outpatient New Moderate M DM 45-59 Minutes Completed 01/27/2021 75652 Spirometry Completed Medical Devices Description No Information Available Encounters Type Date Location Provider Dx Diagnosis Office Visit 06/23/2021 10:30a [facility] Maritza To [facility], ANP J45.40 Moderate persistent asthma, uncomplicate d R06.02 Shortness of breath Office Visit 05/06/2021 9:30a [facility] Maritza To [facility], ANP J45.40 Moderate persistent asthma, uncomplicate d Office Visit 03/19/2021 4:00p [facility] Martiza To [facility], ANP J45.40 Moderate persistent asthma, uncomplicate d Office Visit 02/20/2021 2:00p [facility] Maritza To gregory ANP R06.02 Shortness of breath R06.2 Wheezing Office Visit 01/27/2021 10:00a [facility] Maritza To [facility], ANP R06.02 Shortness of breath R06.2 Wheezing [...] Maritza Tony, ANP 01/27/2021 R06.83 Snoring DONNA Toor Plan of Treatment Future Appointment(s):* 10/02/2021 11:30 am - DONNA Toro at [facility] * 06/26/2021 12:00 pm - Nocturnal Oximetry at [facility] * 07/14/2021 9:45 am - BARBARA Zarate at [facility] 06/23/2021 - DONNA Toro* J45.40 [...] Jacobs JR, MD COLONOSCOPY Scheduled 1 6 [facility] [address] [place] [address] [phone] Radiology/Procedure [id number] Closed 02/13/2021 Maritza Tony A.N.P. SOB Closed 01/27/2021 [facility] [address] [place], [place] [address] [phone]
--- OUTSIDE RECORDS SUMMARY | 2021-08-28 12:24 | CCD | Continuity of Care Document ---
Author Ary Braden PA-C Organization Unknown Address [address] [place] [address] Phone [phone] Care Team Providers Care Certified Flight Instructor Name Role Phone Denny Augustin [facility] AUTM [phone] Problems Active Problems Provider Date Malignant melanoma of skin Judit Swain RPA Onset: 2010 Essential hypertension Nori Beal PA-C Onset: 11/15/2019 Social History Type Date Description Comments Sex Unknown ETOH Use Rarely consumes alcohol Tobacco Use Start: Unknown End: Unknown Patient is a former smoker 20 years ago Smoking Status Reviewed: 02/06/20 Patient is a former smoker 20 years ago Allergies and adverse reactions Active Allergies Criticality Reaction | Severity Comments Date IVP Dye Unable to assess criticality 02/04/2016 Latex Unable to assess criticality 03/21/2020 Medications Active Medications SIG Qnty Indications Ordering Provide r Date Euflexxa 20mg/2ML Soln Prefill Syr emre lt knee #1 12/25/20 klf/hd, left knee #2 klf/ag 01/01/2021, lt knee #3 klf/hd 01/09/21 David Sosa MD 12/25/2020 Hydrocodone-Acetaminophen 5-325mg Tablets 1-2 tabs by mouth every 4 to 6 hours as needed / post surgical pain(please do not fill until 11/19/2020) 30tabs Katiana Shepard 11/19/2020 Aleve 220mg Tablets 1-2 by mouth twice a day w/ food as needed Unknown Duloxetine HCL 60mg Caps Denny Collins, RPA Losartan Potassium 50mg Tablets Unknown Hydrochlorothiazide 12.5mg Tablets Unknown Immunizations Description No Information Available Vital Signs Date Vital Result Comment 03/27/2021 11:03am Body Temperature 96.0 F Height 64.25 inches 5'4.25" Weight 218.25 lb BMI (Body Mass Index) 37.2 kg/m2 11/15/2020 9:22am Body Temperature 97.3 F Results Test Acquired Date Facility Test Result H/L Range Note Complete Blood Count 05/07/2021 [facility] entr [address] [place] [address] (315)- - White Blood Count 11.3 10 High 4.0-10.0 Red Blood Count 4.06 10 Normal 4.00-5.40 Hemoglobin 12.4 g/dL Normal 12.0-15.5 Hematocrit 38.8 % Normal 36.0-47.0 Mean Corpuscular Volume 95.6 fl Normal 80.0-96.0 Mean Corpuscular Hemoglobin 30.5 pg Normal 27.0-33.0 Mean Corpuscular HGB Conc 32.0 g/dL Normal 32.0-36.5 Red Cell Distribution Width 14.6 % High 11.5-14.5 Platelet Count, Automated 185 10 Normal 150-450 Nucleated Red Blood Cell % 0.0 % Normal 0-0 Laboratory test finding 05/07/2021 [facility] [address] [place] [address] (315)- - Uric Acid 5.6 mg/dL Normal 2.6-6.0 Rheumatoid Factor Quant < 10.0 IU/mL Normal <15.0 Antinuclear Antibodies 05/07/2021 [facility] [address] [place] [address] (315)- - Antinuclear Antibodies Direct Positive Abnormal Negati ve Anti Double Strand-Dna AB 14 IU/mL High 0-9 1 MOVIE STUNT PERFORMER Antibodies 0.6 AI Normal 0.0-0.9 Way Antibodies <0.2 AI Normal 0.0-0.9 Sjogren's Anti SS-A <0.2 AI Normal 0.0-0.9 Sjogren's Anti SS-B <0.2 AI Normal 0.0-0.9 Alan Comment (SEE NOTE) Normal . 2 Laboratory test finding 05/07/2021 [facility] [address] [place] [address] ([phone] - Erythrocyte Sedimentation Rate 37 mm/hr High 0-30 Hla-B27 Negative Normal . 3 C Reactive Protein Quantitativ 1.16 mg/dL High 0.00-0.30 Lyme Disease SCRN With Confirm 05/07/2021 [facility] [address] [place] [address] [phone] - Lyme Disease IgG/IgM Antibodie <0.91 ISR Normal 0.00- 0.90 4 Lyme Disease IgM Ab Quantitati <0.80 index Normal 0.00-0.79 5 1 Negative <5 Equivocal 5 - 9 Positive >9 2 . Autoantibody Disease Association Condition Frequency -------- --------- Antinuclear Antibody, SLE, mixed connective Direct (ALAN-D) tissue diseases -------- --------- dsDNA SLE 40 - 60% -------- --------- Chromatin Drug induced SLE 90% SLE 48 - 97% -------- --------- SSA (Ro) SLE 25 - 35% Sjogren's Syndrome 40 - 70% Lupus 100% -------- --------- SSB (La) SLE 10% Sjogren's Syndrome 30% ------- --------- Sm (anti-Way) SLE 15 - 30% ------- --------- MOVIE STUNT PERFORMER Mixed Connective Tissue Disease 95% (U1 nRNP, SLE 30 - 50% anti-ribonucleoprotein) Polymyositis and/or Dermatomyositis 20% -------- --------- Scl-70 (antiDNA Scleroderma (diffuse) 20 - 35% topoisomerase) Crest 13% -------- --------- Leigh-1 Polymyositis and/or Dermatomyositis 20 - 40% -------- --------- Centromere B Scleroderma - Crest variant 80% Performed at: RN - [facility] [address], [place] [id number] Statement Clerks Supervisor: Breana Lacy MD, Phone: [phone] Performed at: - [address] [id number] 61 Statement Clerks Supervisor: Moe Maravilla PhD, Phone: [phone] HLA-B*27 Negative B27 allele interpretation for all loci based on IMGT/HLA database version 3.44 This test was developed and its performance characteristics determined by [facility]. It has not been cleared or approved by the Food and Drug Administration. [facility] CLIA ID Number [id number] . This test was performed using PCR (Polymerase Chain Reaction)/SSOP (Sequence Specific Oligonucleotide Probes) technique. SBT (Sequence Based Typing) and/or SSP (Sequence Specific Primers) may be used as supplemental methods when necessary. Please contact [facility] Customer Service at if you have any questions. . Director of [facility] Laboratory Dr Moe Maravilla, PhD 4 Negative <0.91 Equivocal 0.91 - 1.09 Positive >1.09 5 Negative <0.80 Equivocal 0.80 - 1.19 Positive >1.19 . IgM levels may peak at 3-6 weeks post infection, then gradually decline. Procedures Date Code Description Status 06/20/2021 53705 Office/Outpatient Established Mo d MDM 30-39 Min Completed 06/20/202195415 Inject/Drain Joint/Bursa Major C ompleted 05/07/2021 86799 Office/Outpatient Established Mo d MDM 30-39 Min Completed 05/07/2021 25344 X-Ray Knee Complete W/Obliques & Tunnel And/Or Standing Views Completed 05/07/2021 01442 X-Ray Spine Lumbosacral Complete Inc Bending Views Min Of 6 Completed 03/27/2021 20758 Office/Outpatient Established Mo d MDM 30-39 Min Completed 03/27/202193979 Inject/Drain Joint/Bursa Major C ompleted 01/09/2021 44749 Office/Outpatient Established Lo w MDM 20-29 Min Completed 01/09/202175976 Inject/Drain Joint/Bursa Major C ompleted 01/01/202130161 Inject/Drain Joint/Bursa Major C ompleted Medical Devices Description No Information Available Encounters Type Date Location Provider Dx Diagnosis Office Visit 06/20/2021 11:15a Sandi Beal PA-C M17.0 Bilateral primary osteoarthritis of knee M48.061 Spinal stenosis, lumbar hetal on without neurogenic antolin M47.897 Other spondylosis, lumbosacr al region M51.37 Other intervertebral disc de generation, lumbosacral region M43.17 Spondylolisthesis, lumbosacr al region Office Visit 05/07/2021 11:00a [place] [facility] M[facility].12 Unilateral primary osteoarthritis, left knee M47.897 Other spondylosis, lumbosacr al region M51.37 Other intervertebral disc de generation, lumbosacral region M43.17 Spondylolisthesis, lumbosacr al region L40.50 Arthropathic psoriasis, unsp ecified Office Visit 03/27/2021 11:15a [place] Nori L. Fish, PAC M17.12 Unilateral primary osteoarthritis, left knee Office Visit 01/09/2021 2:00p [place] Nori L. Fish, PA-C M17.0 Bilateral primary osteoarthritis of knee Assessments Date Code Description Provider 06/20/2021 M17.0 Bilateral primary osteoarthritis of knee Nori L. Fish, PA-C 06/20/2021 M48.061 Spinal stenosis, lum bar region without neurogenic claudication Nori L. Fish, PA-C 06/20/2021 M47.897 Other spondylosis, lumbosacral r egion Nori L. Fish, PA-C 06/20/2021 M51.37 Other intervertebral disc degene ration, lumbosacral region Nori L. Fish, PA-C 06/20/2021 M43.17 Spondylolisthesis, lumbosacral r egion Nori L. Fish, PA-C 05/07/2021 M17.12 Unilateral primary osteoarthriti s, left knee Nori L. Fish, PA-C 05/07/2021 M47.897 Other spondylosis, lumbosacral r egion Nori L. Fish, PA-C 05/07/2021 M51.37 Other intervertebral disc degene ration, lumbosacral region Nori L. Fish, PA-C 05/07/2021 M43.17 Spondylolisthesis, lumbosacral r egion Nori L. Fish, PA-C 05/07/2021 L40.50 Arthropathic psoriasis, unspecif ied Nori L. Fish, PA-C 03/27/2021 M17.12 Unilateral primary osteoarthriti s, left knee Nori L. Fish, PA-C 01/09/2021 M17.0 Bilateral primary osteoarthritis of knee Nori RoderickMarcie Beal PA-C 01/01/2021 M17.12 Unilateral primary osteoarthriti s, left knee Nori Mac JERRELL Beal Plan of Treatment Future Appointment(s):* 07/31/2021 9:30 am - Nori Beal PA-C at [place] * 07/24/2021 9:30 am - Nori Beal PA-C at [place] * 07/17/2021 9:30 am - Nori Beal PA-C at [place] 06/20/2021 - Nori Beal PA-C* M17.0 Bilateral primary osteoarthritis of knee * M48.061 Spinal stenosis, lumbar region without neurogenic claudication* Follow up:* f/u prn for back please cancel next apt for brigitte inj with KLF please schedule on or after 07/12 for left knee euflexxa with KLF * M47.897 Other spondylosis, lumbosacral region * M51.37 Other intervertebral disc degeneration, lumbosacral region * M43.17 Spondylolisthesis, lumbosacral region Functional Status Description No Information Available Mental Status Description No Information Available Referrals Refer to Dr Reason for Referral Status Appt Date Nori Beal PA-C 05/15/21 Euflexxa Left Knee a pproved auth [id number], from 05/13/21 to 11/15/21,passed to schedulers sw. CAN NOT HAVE INJECTION UNTIL 07/12/21. Created [address] [place] [phone] Nori Beal PA-C REFERRAL NO AUTH REQUIRED FO R REFERRAL TO DR. SUBHASH XIE TO INTERNAL AUDIT MANAGER. SHANTHI Created [address] [place] [phone] Nori Beal PA-C REFERRAL NO AUTH REQUIRED FO R REFERRAL TO [facility] TO INTERNAL AUDIT MANAGER. SHANTHI Created [facility] [address] [address] [phone] Nori Beal PA-C MRI APPROVED PER [employer] FOR MRI OF LUMBAR SPINE (08738) TO MINOO MAKI Created [facility] [address] [address] [phone] Nori Beal PA-C Right knee Euflexxa approved. Passing to scheduling. Created [address] [place] [phone]
--- OUTSIDE RECORDS SUMMARY | 2021-08-28 12:24 | CCD | Continuity of Care Document ---
Author Author Ary MATTHEWS PA Organization Unknown Address [address] [facility], [address] [place] [address] Phone [phone] Care Team Providers Care Playroom Attendant Name Role Phone AUTM Unavailable Yoseph Palacios AUTM [phone] Denny Augustin AUTM [phone] Problems Active Problems Provider Date Essential hypertension [...] lb BMI (Body Mass Index) 34.6 kg/m2 [place] Body Weight 130 lb Weight 97.240 kg BSA (Body Surface Area) 2.06 m2 06/23/2021 10:26am BP Systolic 126 mmHg BP Diastolic 80 mmHg Heart Rate 103 /min O2 % BldC Oximetry 91 % Respiratory Rate 20 /min Height 66 inches 5'6" Weight 217.00 lb BMI (Body Mass Index) 35.0 kg/m2 [place] Body Weight 130 lb Weight 98.431 kg [...] L Fev6-%Pred-Pre 79 L Fev6-LLN 2.27 L Bbe6kfo-Qluw 75 % Wji5tlc-Xoh 69 % Dqk7qmm-%Pred-Pre 91 % Ogh2csz-FTV 65 % Ypo4wqi-Evwr 95 % Inc9elm-Ogg 95 % Gah4yri-%Pred-Pre 100 % FEFMax-Pred 5.72 L/E/sec FEFMax-Pre 5.09 L/E/sec FEFMax-%Pred-Pre 88 L/E/sec FEFMax-LLN 3.90 L/E/sec Hrb3841-Vhxh 1.87 L/E/sec Ynw8587-Cjl 1.01 L/E/sec Vbz2801-%Pred-Pre 53 L/E/sec Sqr6922-FVA 0.55 L/E/sec ExpTime-Pre 8.98 sec Dmf3fwp1-Knkq 79 % Iec6fcl6-Bdt 72 % Mji0oly0-%Pred-Pre 91 % Gku3gha9-OSQ 70 % FVL/[place]o 01/27/2021 [employer] PDFReport SEE IMAGE FVC-Pred 3.17 L FVC-Pre 2.32 L FVC-%Pred-Pre 73 L FVC-LLN 2.44 L Fev1-Pred 2.40 L Fev1-Pre 1.77 L Fev1-%Pred-Pre 73 L Fev1-LLN 1.77 L Fev6-Pred 3.03 L Fev6-Pre 2.32 L Fev6-%Pred-Pre 76 L Fev6-LLN 2.31 L Cfx3akv-Ezoe 76 % Uwv5nco-Lhf 76 % Xwl9djp-%Pred-Pre 100 % Rwx6snz-IRS 66 % Khs4tif-Pnoq 96 % Qnh5jtb-Rvj 100 % Dew1yod-%Pred-Pre 104 % FEFMax-Pred 5.80 L/E/sec FEFMax-Pre 4.61 L/E/sec FEFMax-%Pred-Pre 79 L/E/sec FEFMax-LLN 3.98 L/E/sec Rzp4072-Adfy 1.92 L/E/sec Tun6031-Pzw 1.40 L/E/sec Sfv0837-%Pred-Pre 72 L/E/sec Dje8595-KQY 0.60 L/E/sec ExpTime-Pre 5.12 sec Uwe0roi6-Rdrj 79 % Rdq9axd3-Xog 76 % Ulj1iui5-%Pred-Pre 96 % Oxo8oth1-KJA 70 % Procedures Date Code Description Status 07/14/2021 93483 Office/Outpatient New Moderate M DM 45-59 Minutes Completed 06/23/2021 17385 Office/Outpatient Established Mo d MDM 30-39 Min Completed 06/23/2021 89937 Spirometry Completed 05/06/2021 95427 Office/Outpatient Established Lo w MDM 20-29 Min Completed 05/06/2021 45260 Spirometry Completed 03/19/2021 30982 Office/Outpatient Established Mo d MDM 30-39 Min Completed 02/20/2021 43662 Office/Outpatient Established Mo d MDM 30-39 Min Completed 01/30/2021 24281 Diffusing Capacity Completed 01/30/2021 70726 Plethysmography Determination Nazia ng Volumes & Per Airway Resist Completed 01/30/2021 87040 Bronchospasm Evaluation Complete d 01/27/2021 57381 Office/Outpatient New Moderate M DM 45-59 Minutes Completed 01/27/2021 28224 Spirometry Completed Medical Devices Description No Information Available Encounters Type Date Location Provider Dx Diagnosis Office Visit 07/14/2021 9:45a [facility] BARBARA Beckwith Z12.11 Encounter for screening for malignant ne oplasm of colon K57.30 Dvrtclos of lg int w/o perfo ration or abscess w/o bleeding K64.9 Unspecified hemorrhoids N81.6 Rectocele Office Visit 06/23/2021 10:30a [facility] Maritza To wne, A.N.P. J45.40 Moderate persistent asthma, uncomplicate d R06.02 Shortness of breath Office Visit 05/06/2021 9:30a [facility] Maritza To wne, A.N.P. J45.40 Moderate persistent asthma, uncomplicate d Office Visit 03/19/2021 4:00p [facility] Maritza To wne, A.N.P. J45.40 Moderate persistent asthma, uncomplicate d Office Visit 02/20/2021 2:00p [facility] Maritza To wne, A.N.P. R06.02 Shortness of breath R06.2 Wheezing Office Visit 01/27/2021 10:00a [facility] Maritza To wne, A.N.P. R06.02 Shortness of breath R06.2 Wheezing R06.83 Snoring Assessments Date Code Description Provider 07/14/2021 Z12.11 Encounter for screening for ab gnant neoplasm of colon BARBARA Zarate 07/14/2021 K57.30 Diverticulosis of la rge intestine without perforation or abscess without bleeding BARBARA Zarate 07/14/2021 K64.9 Unspecified hemorrhoids BARBARA Vázquez 07/14/2021 N81.6 Rectocele BARBARA Zarate 06/23/2021 J45.40 Moderate persistent asthma, unco mplicated Maritza Chavo, A.N.P. 06/23/2021 R06.02 Shortness of breath Maritza Chavo, A.N.P. 05/06/2021 J45.40 Moderate persistent asthma, unco mplicated Maritza Chavo, A.N.P. 03/19/2021 J45.40 Moderate persistent asthma, unco mplicated Maritza Chavo, A.N.P. 02/20/2021 R06.02 Shortness of breath Maritza Chavo, A.N.P. 02/20/2021 R06.2 Wheezing Maritza Chavo, A.N. P. 01/30/2021 R06.02 Shortness of breath Pulmonary La b 01/27/2021 R06.02 Shortness of breath Maritza Chavo, A.N.P. 01/27/2021 R06.2 Wheezing Maritza Chavo, A.N. P. 01/27/2021 R06.83 Snoring Maritza Chavo, A.N. P. Plan of Treatment Future Appointment(s):* 09/08/2021 11:00 am - BARBARA Zarate at [facility] * 08/28/2021 1:30 pm - Jacob Jacobs JR, MD at [facility] * 10/02/2021 11:30 am - Maritza Chavo, A.N.P. at [facility] 06/23/2021 - Maritza Chavo, A.N.P.* J45.40 Moderate persistent asthma, uncomplicated * R06.02 Shortness of breath * * New Labs:* FVL/[place], Scheduled: 10/02/21 * Follow up:* Follow up 3 months with fvl/spirometry. Nocturnal oximetry-I will call with results. Functional Status Description No Information Available Mental Status Description No Information Available Referrals Refer to Reason for Referral Status Appt Date Jacob Jacobs JR, MD COLONOSCOPY Scheduled 1 6 [facility] [address] [place] [address] [phone] Radiology/Procedure 17983 Closed 02/13/2021
--- OUTSIDE RECORDS SUMMARY | 2021-08-28 12:24 | CCD ---
Author Author [facility] Organization 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 confirmed 494825620 Problem Seborrheic keratoses L82.1 Active confirmed 932423552 Problem Hidradenitis suppurativa L73.2 Active confirmed 28352618 Problem Dyshidrotic hand dermatitis L30.1 Active confirmed 276808566 Problem Facial scar L90.5 Active confirmed 54657581 3 Problem Onychomycosis B35.1 Active confirmed 945497 008 Problem Actinic keratoses L57.0 Active confirmed 40 3030875 ALLERGIES Allergen (clinical drug ingredient) Drug/Non Drug Allergy do cumented on EMR Reaction Allergy Type Onset Date Status sulfasalazine Sulfasalazine(ND Code:[address]-08) burning of mouth and tongue Drug Allergy Active iodine(ND Code:75356-71936) Unknown Drug Allergy Active Glucosamine Shellfish-derived Products Nausea/Vomiting Drug Allergy Active Metrizamide Iodinated Diagnostic Agents Unknown Drug Allergy Active Adhesive Unknown Drug Allergy Active Latex Latex Rash Drug Allergy Active ENCOUNTERS from 1948 to 2021-08-11 Encounter Location Date Provider Diagnosis [facility] [address] [facility] [phone] [place] [address] Jun, Florencio Panchal Breast cancer screen ing by mammogram Z12.31 ; Encounter for well woman exam Z01.419 and Candidiasis of skin B37.2 IMMUNIZATIONS No Information SOCIAL HISTORY Tobacco Use: Social History Observation Description Date Details (start date - stop date) Former Smoker Sex Assigned At : Social History Observation Description Sex Assigned At Unknown Tobacco Use: Question Answer Notes Are you a: former smoker Quit 1987 and hasn't had any since REASON FOR REFERRAL No Information VITAL SIGNS Weight 214.6 lbs Jun, Weight-kg 97.34 kg Jun, Height 66 in Jun, BMI 34.63 kg/m2 Jun, Blood pressure systolic 118 mm Hg Jun, Blood pressure diastolic 70 mm Hg Jun, MEDICATIONS Medication SIG (Take, Route, Frequency, Duration) Notes Start Da te End Date Status Losartan Potassium 50 MG 1 tablet Orally Once a day Active Nystatin 900154 UNIT/GM 1 application Externally to breast tissue Twice a day for 30 day(s) Jun, Active Vitamin D 1000 UNIT 1 tablet Orally Once a day, as rem Active Vitamin B Complex - as directed Orally Active hydroCHLOROthiazide 12.5 MG 1 tablet in the morning Orally Once a day Active DULoxetine HCl 60 MG 1 capsule Orally bid Active Cymbalta 60 MG 1 capsule Orally once a day Active Advil 200 MG 1 tablet with food or milk as needed Orally Three time s a day Not-Taking PROCEDURES No Information RESULTS Component Value Reference Range WMM DIGITAL MAMMO SCREENING BILAT (Ultra sound if indicated) [facility] Reviewed date:07/31/2021 15:49:51 Interpretation: Performing Lab:[facility] [address] REASON FOR VISIT ANNUAL/MAMMO MEDICAL (GENERAL) HISTORY Type Description Date Medical History Mitral valve prolapse Medical History Coliltis colonoscopy by Dr Avitia Medical History Spinal Stenosis Medical History Asthma Medical History Cataracts Medical History Horse shoe kidney Medical History Chronic Dry eyes Medical History Environmental allergies Medical History Psoriatic Arthritis Medical History Neuropathy Medical History Hx of V10.82, Malignant melanoma in sit u right maxillary area Medical History hypertension Surgical History Tubal Ligation Surgical History Hysterectomy, partial Surgical History ovarian cyst resection Surgical History D&C Surgical History R hand from a severe cut Surgical History L hand surgery for trigger finger Surgical History cholecystectomy Surgical History tonsillectomy Surgical History right knee repair- meniscus 2017 Hospitalization History childbirth Hospitalization History surgical Goals Section No Information Health Concerns No Information MEDICAL EQUIPMENT No Information MENTAL STATUS No Information FUNCTIONAL STATUS No Information ASSESSMENTS Encounter Date Diagnosis Assessment Notes Treatment Notes Treatm ent Clinical Notes Jun, Encounter for well woman exam (ICD-10 - Z01.419) Jun, Breast cancer screening by mammogram (ICD-10 - Z 12.31) Jun, Candidiasis of skin (ICD-10 - B37.2) PLAN OF TREATMENT Medication Medication Name Sig Start Date Stop Date Nystatin 339061 UNIT/GM 1 application Externally to breast tissue Twice a day for 30 day(s) Jun, Next Appt Details 1 Year Reason: Provider Name:Leticia Lagos, 2021-10-10 01:45:00 PM, [address] [place] [address], , [place], [place], [facility], Insurance Providers Payer Name Payer Address Payer Phone Insured Name Patient Relati onship to Insured Coverage Start Date Coverage End Date FOR[facility]LY [facility], [facility] [address] [address] [facility] [phone] [employer]
--- OUTSIDE RECORDS SUMMARY | 2021-08-28 12:24 | CCD ---
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 confirmed 962372393 Problem Seborrheic keratoses L82.1 Active confirmed 240956902 Problem Hidradenitis suppurativa L73.2 Active confirmed 08562553 Problem Dyshidrotic hand dermatitis L30.1 Active confirmed 888848099 Problem Facial scar L90.5 Active confirmed 32754143 3 Problem Onychomycosis B35.1 Active confirmed 138185 008 Problem Actinic keratoses L57.0 Active confirmed 40 6890501 ALLERGIES Allergen (clinical drug ingredient) Drug/Non Drug Allergy do cumented on EMR Reaction Allergy Type Onset Date Status sulfasalazine Sulfasalazine(ND Code:[address]-58) burning of mouth and tongue Drug Allergy Active iodine(ND Code:09111-67493) Unknown Drug Allergy Active Glucosamine Shellfish-derived Products Nausea/Vomiting Drug Allergy Active Metrizamide Iodinated Diagnostic Agents Unknown Drug Allergy Active Adhesive Unknown Drug Allergy Active Latex Latex Rash Drug Allergy Active ENCOUNTERS from 1948 to 2021-07-08 Encounter Location Date Provider Diagnosis [facility] [address] [place] [address] [place] [address] 11 Jun, 2021 Leticia Lagos IMMUNIZATIONS No Information SOCIAL HISTORY Tobacco Use: Social History Observation Description Date Details (start date - stop date) Former Smoker Sex Assigned At : Social History Observation Description Sex Assigned At Unknown Tobacco Use: Question Answer Notes Are you a: former smoker Quit 1987 and hasn't had any since REASON FOR REFERRAL No Information VITAL SIGNS No information MEDICATIONS Medication SIG (Take, Route, Frequency, Duration) Notes Start Da te End Date Status Vitamin D 1000 UNIT 1 tablet Orally Once a day, as rem Active hydroCHLOROthiazide 12.5 MG 1 tablet in the morning Orally Once a day Active DULoxetine HCl 60 MG 1 capsule Orally bid Active Vitamin B Complex - as directed Orally Active Advil 200 MG 1 tablet with food or milk as needed Orally Three time s a day Active Losartan Potassium 50 MG 1 tablet Orally Once a day Active Cymbalta 60 MG 1 capsule Orally once a day Active PROCEDURES No Information RESULTS No Results REASON FOR VISIT Referral Dx MEDICAL (GENERAL) HISTORY Type Description Date Medical [...] No Information FUNCTIONAL STATUS No Information ASSESSMENTS No Information PLAN OF TREATMENT Next Appt Details Provider Name:Florencio L Abdulkadir, 2021-07-18 0 2:00:00 PM, [address] [facility], , [place], [address], Insurance Providers Payer Name Payer Address Payer Phone Insured Name Patient Relati onship to Insured Coverage Start Date Coverage End Date [facility] [employer] [facility] [address] [address] [facility] [phone] [employer]
--- OUTSIDE RECORDS SUMMARY | 2021-08-28 12:24 | CCD | Continuity of Care Document ---
Author Ary Braden PA-C Organization Unknown Address [address] [place] [address] Phone [phone] Care Team Providers Care Surveyor'S Assistant Name Role Phone Denny Augustin [facility] AUTM [phone] Problems Active Problems Provider Date Malignant melanoma of skin Judit Swain RPA Onset: 2010 Essential hypertension Nori Beal PA-C Onset: 11/15/2019 Social History Type Date Description Comments Sex Unknown ETOH Use Rarely consumes alcohol Tobacco Use Start: Unknown End: Unknown Patient is a former smoker 20 years ago Smoking Status Reviewed: 02/06/20 Patient is a former smoker 20 years ago Allergies, Adverse Reactions, Alerts Active Allergies Criticality [...] Unknown Duloxetine HCL 60mg Caps Denny Collins, SEBASTIAN Losartan Potassium 50mg Tablets Unknown Hydrochlorothiazide 12.5mg Tablets Unknown Immunizations Description No Information Available Vital Signs Date Vital Result Comment 03/27/2021 11:03am Body Temperature 96.0 F Height 64.25 inches 5'4.25" Weight 218.25 lb BMI (Body Mass Index) 37.2 kg/m2 11/15/2020 9:22am Body Temperature 97.3 F Results Test Acquired Date Facility Test Result H/L Range Note Complete Blood Count 05/07/2021 [facility] [address] [place] [address] (315)- - White Blood Count 11.3 10 [...] % Normal 0-0 Laboratory test finding 05/07/2021 [facility] [address] [place] [address] (315)- - Uric Acid 5.6 mg/dL Normal 2.6-6.0 Rheumatoid Factor Quant < 10.0 IU/mL Normal <15.0 Antinuclear Antibodies 05/07/2021 [facility] [address] [place] [address] (315)- - Antinuclear Antibodies Direct Positive Abnormal Negati ve Anti Double Strand-Dna AB 14 IU/mL High 0-9 1 [employer] Antibodies 0.6 AI Normal 0.0-0.9 Way Antibodies <0.2 AI Normal 0.0-0.9 Sjogren's Anti SS-A <0.2 AI Normal 0.0-0.9 Sjogren's Anti SS-B <0.2 AI Normal 0.0-0.9 Alan Comment (SEE NOTE) Normal . 2 Laboratory test finding 05/07/2021 [facility] [address] [place] [address] (429)- - Erythrocyte Sedimentation Rate 37 mm/hr High 0-30 Hla-B27 Negative Normal . 3 C Reactive Protein Quantitativ 1.16 mg/dL High 0.00-0.30 Lyme Disease SCRN With Confirm 05/07/2021 [facility] [address] [place] [address] (611)- - Lyme Disease IgG/IgM Antibodie <0.91 ISR [...] (anti-Way) SLE 15 - 30% ------- --------- M[employer]IAN Mixed Connective Tissue Disease 95% (U1 nRNP, SLE 30 - 50% anti-ribonucleoprotein) Polymyositis and/or Dermatomyositis 20% -------- --------- Scl-70 (antiDNA Scleroderma (diffuse) 20 - 35% topoisomerase) Crest 13% -------- --------- Leigh-1 Polymyositis and/or Dermatomyositis 20 - 40% -------- --------- Centromere B Scleroderma - Crest variant 80% Performed at: RN - [facility] [address] [id number] Lead Burner Supervisor: Breana Lacy MD, Phone: [phone] Performed at: 2Q - [facility] [address] [place] [id number] Lead Burner Supervisor: Moe Maravilla PhD, Phone: [phone] HLA-B*27 Negative B27 allele interpretation for all loci based on IMGT/HLA database version 3.44 This test was developed and its performance characteristics determined by [employer]. It has not been cleared or approved by the Food and Drug Administration. [facility] CLIA ID Number [id number] . This test was performed using PCR [...] decline. Procedures Date Code Description Status 06/20/2021 41123 Office/Outpatient Established Mo d MDM 30-39 Min Completed 06/20/202177669 Inject/Drain Joint/Bursa Major C ompleted 05/07/2021 15780 Office/Outpatient Established Mo d MDM 30-39 Min Completed 05/07/2021 14855 X-Ray Knee Complete W/Obliques & Tunnel And/Or Standing Views Completed 05/07/2021 07736 X-Ray Spine Lumbosacral Complete Inc Bending Views Min Of 6 Completed 03/27/2021 70797 Office/Outpatient Established Mo d MDM 30-39 Min Completed 03/27/202195907 Inject/Drain Joint/Bursa Major C ompleted 01/09/2021 93526 Office/Outpatient Established Lo w MDM 20-29 Min Completed 01/09/202185111 Inject/Drain Joint/Bursa Major C ompleted 01/01/202180059 Inject/Drain Joint/Bursa Major C ompleted 12/25/2020 17831 Office/Outpatient Established Lo w MDM 20-29 Min Completed 12/25/202014346 Inject/Drain Joint/Bursa Major C ompleted Medical Devices Description No Information Available Encounters Type Date Location Provider Dx Diagnosis Office Visit 06/20/2021 11:15a Sandi Beal PA-C M17.0 Bilateral primary osteoarthritis of knee M48.061 Spinal stenosis, lumbar hetal on without neurogenic antolin M47.897 Other spondylosis, lumbosacr al region M51.37 Other intervertebral disc de generation, lumbosacral region M43.17 Spondylolisthesis, lumbosacr al region Office Visit 05/07/2021 11:00a [facility] Nori L. Emigdio PA-C M17.12 Unilateral primary osteoarthritis, left knee M47.897 Other spondylosis, lumbosacr al region M51.37 Other intervertebral disc de generation, lumbosacral region M43.17 Spondylolisthesis, lumbosacr al region L40.50 Arthropathic psoriasis, unsp ecified Office Visit 03/27/2021 11:15a [facility] Nori L. Emigdio PA-C M17.12 Unilateral primary osteoarthritis, left knee Office Visit 01/09/2021 2:00p [facility] Nori L. Emigdio PA-C M17.0 Bilateral primary osteoarthritis of knee Office Visit 12/25/2020 1:00p [facility] Nori L. Emigdio PAMarkoC Z47.89 Encounter for other orthopedic aftercare M17.0 Bilateral primary osteoarthr itis of knee Assessments Date Code Description Provider 06/20/2021 M17.0 Bilateral primary osteoarthritis of knee Nori L. Emigdio PA-C 06/20/2021 M48.061 Spinal stenosis, lum bar [...] 05/07/2021 M43.17 Spondylolisthesis, lumbosacral r egion Nori Mac Emigdio PA-C 05/07/2021 L40.50 Arthropathic psoriasis, unspecif ied Nori Mac Emigdio PA-C 03/27/2021 M17.12 Unilateral primary osteoarthriti s, left knee Nori LMarcie Emigdio PA-C 01/09/2021 M17.0 Bilateral primary osteoarthritis of knee Nori Mac Emigdio PA-C 01/01/2021 M17.12 Unilateral primary osteoarthriti s, left knee Nori Vaughn. Emigdio PA-C 12/25/2020 Z47.89 Encounter for other orthopedic a ftercare Nori Mac Emigdio PA-C 12/25/2020 M17.0 Bilateral primary osteoarthritis of knee Nori Mac Emigdio PA-C Plan of Treatment Future Appointment(s):* 07/31/2021 9:30 am - Nori RoderickBARBARA Valladares-C at [facility] * 07/24/2021 9:30 am - Nori Bubba Emigdio PA-C at [facility] * 07/17/2021 9:30 am - Nori Bubba Emigdio PA-C at [facility] 06/20/2021 - oNri Mac Emigdio PA-C* M17.0 Bilateral primary osteoarthritis of knee * M48.061 Spinal stenosis, lumbar region without neurogenic claudication* New Orders:* Referral, Ordered: 06/20/21 * Follow up:* f/u prn for back please [...] to Reason for Referral Status Appt Date Emigdio NoriBENOIT BernalC 05/15/21 Euflexxa Left Knee a pproved auth [id number], from 05/13/21 to 11/15/21,passed to schedulers sw. CAN NOT HAVE INJECTION UNTIL 07/12/21. Created [address] [place] [address] [phone] Nori Beal PA-C REFERRAL NO AUTH REQUIRED FO R REFERRAL TO DR. SUBHASH XIE TO [facility]. SHANTHI Created [address] [place] [address] [phone] Nori Beal PA-C REFERRAL NO AUTH REQUIRED FO R REFERRAL TO [facility] TO [facility]PER. SHANTHI Created [address] [place] [address] [phone] Nori Beal PA-C MRI APPROVED PER [employer] FOR MRI OF LUMBAR SPINE (94042) TO MINOO MAKI Created [address] [place] [address] [phone] Nori Beal PA-C Right knee Euflexxa approved. Passing to scheduling. Created [address] [place] [id number] [phone]
--- OUTSIDE RECORDS SUMMARY | 2021-08-28 12:24 | CCD | Continuity of Care Document ---
Author Author Ary [facility] CNA-C Organization Unknown Address [address], [address] [place] [address] Phone [phone] Care Team Providers Care Histologic Technician Name Role Phone Charli Denny CLEMENS AUTM [phone] Problems Description No Information Available Social History Type Date Description Comments Sex Unknown ETOH Use Social Drinker Tobacco Use Start: Unknown End: Unknown Patient is a former smoker Quit in 1987 Sun Exposure minimum amount of sun exposure Sun Exposure Tanning bed - Has used in past. No longer using. Sun Exposure Has experienced blistering from sunburns Sun Exposure history of sunburn Sun Exposure Uses > 30 SPF Allergies and adverse reactions Active Allergies Criticality Reaction | Severity Comments Date sulfa Unable to assess criticality 02/12/2021 Latex Unable to assess criticality 02/12/2021 Medications Active Medications SIG Qnty Indications Ordering Provide r Date Losartan Potassium Unknown Hydrochlorothiazide Unknown Duloxetine HCL Unknown Vitamin D-3 Unknown Vitamin B12 Unknown Tylenol Unknown Prednisone Unknown Fexofenadine HCL Unknown 00 Immunizations Description No Information Available Vital Signs Date Vital Result Comment 08/19/2021 12:03pm BP Systolic 131 mmHg BP Diastolic 79 mmHg O2 % BldC Oximetry 96 % Heart Rate 80 /min 02/13/2021 11:23am BP Systolic 134 mmHg BP Diastolic 80 mmHg Weight 215.00 lb Results Test Acquired Date Facility Test Result H/L Range Note [facility] Pathology 08/19/2021 [facility] LC Icd9 Code ICD9 Code: D22.6 <SEE NOTE> 1 [facility]ort SEE IMAGE 1 ICD9 Code: D22.61 Protocol: shave Clinical Text: ATYPICAL NEVUS VS MM VS SCC Final Diagnosis: 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 Gross Text: The specimen grossly was oval shaped, measuring 12 x 10 mm. on the surface and 1 mm. deep. It was divided into 3 sections on the long axis.All of the tissue was submitted for processing. Microscopic Description: There is elongation of the rete ridges with nests of melanocytes at the basal margin that show slight bridging and an increased number of melanocytes. Fibroplasia is seen in the upper cutis. CPT: 71784*1 Procedures Date Code Description Status 08/19/2021 28433 Office/Outpatient Established Mo d MDM 30-39 Min Completed 08/19/2021 82334 Shave Biopsy Of Skin, Single Les ion Completed Medical Devices Description No Information Available Encounters Type Date Location Provider Dx Diagnosis Office Visit 08/19/2021 12:30p Main Office LILIYA Turpin D48.5 Neoplasm of uncertain behavior of skin D22.5 Melanocytic nevi of trunk D22.61 Melanocytic nevi of right up per limb, including shoulder D22.71 Melanocytic nevi of right lo wer limb, including hip L81.4 Other melanin hyperpigmentat ion D18.01 Hemangioma of skin and subcu taneous tissue L82.1 Other seborrheic keratosis L85.3 Xerosis cutis Z12.83 Encounter for screening for malignant neoplasm of skin Assessments Date Code Description Provider 08/19/2021 D48.5 Neoplasm of uncertain behavior o f skin LILIYA Turpin 08/19/2021 D22.5 Melanocytic nevi of trunk LILIYA Wilson 08/19/2021 D22.61 Melanocytic nevi of right upper limb, including shoulder LILIYA Turpin 08/19/2021 D22.71 Melanocytic nevi of right lower limb, including hip LILIYA Turpin 08/19/2021 L81.4 Other melanin hyperpigmentation LILIYA Turpin 08/19/2021 D18.01 Hemangioma of skin and subcutane ous tissue Ratna Peraltabryan, [facility] CNA-C 08/19/2021 L82.1 Other seborrheic keratosis Jennifer Peraltabryan, [facility] CNA-C 08/19/2021 L85.3 Xerosis cutis Ratna Toribio erica, [facility]OSP[facility] CNA-C 08/19/2021 Z12.83 Encounter for screening for ba gnant neoplasm of skin LILIYA Turpin Plan of Treatment 08/19/2021 - LILIYA Turpin* D48.5 Neoplasm of uncertain behavior of skin* Comments:* Shave biopsy today, R upper arm - atypical nevus vs MM vs SCC Discussed risks of biopsy to include scarring, infection, need for further treatment. Alternative to the biopsy is watchful waitingInformed consent for biopsy signed and photographs takenVerified , name and sites. The area was prepped with alcohol and anesthesized with 1% Lidocaine with Epinephrine. The wound was dressed with band-aid and Vaseline. Patient tolerated well with no complications. Specimen sent to pathology Wound care instructions given Will call with pathology when availableInstructed to call with any problems * D22.5 Melanocytic nevi of trunk* Comments:* Nevi on trunk appear healthy. Monitor for changes. Sun protection and sunscreen use discussed. Literature given on monthly self skin evaluations. Should any moles change in shape or color, itch, bleed or burn, pt will contact office for evaluation sooner than their interval appointment. * D22.61 Melanocytic nevi of right upper limb, including shoulder* Comments:* Nevus located on R arm appears healthy. Monitor for changes. * D22.71 Melanocytic nevi of right lower limb, including hip* Comments:* Nevus located on R leg. Monitor for changes. * L81.4 Other melanin hyperpigmentation* Comments:* Sunscreen use and sun protection discussed. * D18.01 Hemangioma of skin and subcutaneous tissue* Comments:* Reassurance. * L82.1 Other seborrheic keratosis* Comments:* Reassurance. Will have removed at next visit * L85.3 Xerosis cutis* Comments:* Mild cleansers and moisturizers. * Z12.83 Encounter for screening for malignant neoplasm of skin* Comments:* See above. * Follow up:* SK removal 6 months/PRN - [facility] Functional Status Description No Information Available Mental Status Description No Information Available Referrals Refer to Reason for Referral Status Appt Date Ratna Mello FNP-C Created [address], [address] [place] [address] [phone]"
--- OUTSIDE RECORDS SUMMARY | 2021-08-28 12:24 | CCD | Continuity of Care Document ---
Author Author Ary MAXWELLNNelsy Organization Unknown Address [address] [place] [address] Phone [phone] Care Team Providers Care Director Of Acquisitions Name Role Phone AUTM Unavailable Yoseph Palacios AUTM [phone] Denny Augustin AUTM [phone] Problems Active Problems Provider Date Essential [...] puff twice a day 12gm J45.40 Maritza Maxwell A.N.P. 03/19/2021 Albuterol Sulfate HFA 108(90Base) mcg/Act Aerosol 2 puffs four times a day as needed 8.500gm Maritza arredondo A.N.P. 02/20/2021 Aerochamber Plus Rupesh-Vu Misc use with inhaler as needed 1units R06.02 Munira Toro.N.P. 02/20/2021 Vitamin B 12 500mcg Tablets 1 [...] lb BMI (Body Mass Index) 34.6 kg/m2 [place] Body Weight 130 lb Weight 97.240 kg BSA (Body Surface Area) 2.06 m2 06/23/2021 10:26am BP Systolic 126 mmHg BP Diastolic 80 mmHg Heart Rate 103 /min O2 % BldC Oximetry 91 % Respiratory Rate 20 /min Height 66 inches 5'6" Weight 217.00 lb BMI (Body Mass Index) 35.0 kg/m2 [place] Body Weight 130 lb Weight 98.431 kg BSA (Body Surface Area) 2.07 m2 Results Test Acquired Date Facility Test Result H/L Range Note FVL/[place] 06/23/2021 [facility] SEE IMAGE FVC-Pred 3.14 L FVC-Pre 2.49 L FVC-%Pred-Pre 79 L FVC-LLN 2.40 L Fev1-Pred 2.37 L Fev1-Pre 1.72 L Fev1-%Pred-Pre 72 L Fev1-LLN 1.74 L Fev6-Pred 2.99 L Fev6-Pre 2.38 L Fev6-%Pred-Pre 79 L Fev6-LLN 2.27 L Tme6crj-Uoqa 75 % Ooa4jfn-Tkv 69 % Xnx2cwk-%Pred-Pre 91 % Edy1jnf-NBZ 65 % Zzg0jbm-Meao 95 % Zyw9jnz-Xsg 95 % Oxd6ltz-%Pred-Pre 100 % FEFMax-Pred 5.72 L/E/sec FEFMax-Pre 5.09 L/E/sec FEFMax-%Pred-Pre 88 L/E/sec FEFMax-LLN 3.90 L/E/sec Cal7281-Hopn 1.87 L/E/sec Pmh9872-Mvc 1.01 L/E/sec Xov6247-%Pred-Pre 53 L/E/sec Ief5439-GJA 0.55 L/E/sec ExpTime-Pre 8.98 sec Qfm0vdg3-Wtna 79 % Yvg8wnz7-Rrs 72 % Hjn0zzv1-%Pred-Pre 91 % Ecw6gfd5-YKN 70 % FVL/[place] 01/27/2021 [facility] PDFReport SEE IMAGE FVC-Pred 3.17 L FVC-Pre 2.32 L FVC-%Pred-Pre 73 L FVC-LLN 2.44 L Fev1-Pred 2.40 L Fev1-Pre 1.77 L Fev1-%Pred-Pre 73 L Fev1-LLN 1.77 L Fev6-Pred 3.03 L Fev6-Pre 2.32 L Fev6-%Pred-Pre 76 L Fev6-LLN 2.31 L Jrh2ybe-Swxf 76 % Zdi3jqz-Adx 76 % Zcx2ohs-%Pred-Pre 100 % Hev5omt-HDO 66 % Idw5bos-Eaey 96 % Cbp0fbt-Ooi 100 % Xck3wur-%Pred-Pre 104 % FEFMax-Pred 5.80 L/E/sec FEFMax-Pre 4.61 L/E/sec FEFMax-%Pred-Pre 79 L/E/sec FEFMax-LLN 3.98 L/E/sec Gpv4015-Uxpb 1.92 L/E/sec Bmu6234-Nsm 1.40 L/E/sec Pmf3412-%Pred-Pre 72 L/E/sec Mdl5773-NCZ 0.60 L/E/sec ExpTime-Pre 5.12 sec Xyw8mlv0-Blgb 79 % Lwr4rzp5-Mmr 76 % Ldj7ywf8-%Pred-Pre 96 % Xci0jbg7-YXT 70 % Procedures Date Code Description Status 07/14/2021 78950 Office/Outpatient New Moderate M DM 45-59 Minutes Completed 06/23/2021 23078 Office/Outpatient Established Mo d MDM 30-39 Min Completed 06/23/2021 34755 Spirometry Completed 05/06/2021 93897 Office/Outpatient Established Lo w MDM 20-29 Min Completed 05/06/2021 23669 Spirometry Completed 03/19/2021 58201 Office/Outpatient Established Mo d MDM 30-39 Min Completed 02/20/2021 70582 Office/Outpatient Established Mo d MDM 30-39 Min Completed 01/30/2021 46244 Diffusing Capacity Completed 01/30/2021 00177 Plethysmography Determination Nazia ng Volumes & Per Airway Resist Completed 01/30/2021 79294 Bronchospasm Evaluation Complete d 01/27/2021 87844 Office/Outpatient New Moderate M DM 45-59 Minutes Completed 01/27/2021 08386 Spirometry Completed Medical Devices Description No Information Available Encounters Type Date Location Provider Dx Diagnosis Office Visit 07/14/2021 9:45a [facility] BARBARA Beckwith Z12.11 Encounter for screening for malignant ne oplasm of colon K57.30 Dvrtclos of lg int w/o perfo ration or abscess w/o bleeding K64.9 Unspecified hemorrhoids N81.6 Rectocele Office Visit 06/23/2021 10:30a [facility] Maritza To wne, A.N.P. J45.40 Moderate persistent asthma, uncomplicate d R06.02 Shortness of breath Office Visit 05/06/2021 9:30a [facility] Maritza To wne, A.N.P. J45.40 Moderate persistent asthma, uncomplicate d Office Visit 03/19/2021 4:00p [facility] Maritza To wne, A.N.P. J45.40 Moderate persistent asthma, uncomplicate d Office Visit 02/20/2021 2:00p [facility] Maritza To wne, A.N.P. R06.02 Shortness of breath R06.2 Wheezing Office Visit 01/27/2021 10:00a [facility] Maritza To wne, A.N.P. R06.02 Shortness [...] 09/08/2021 11:00 am - BARBARA Zarate at [facility] * 08/28/2021 1:30 pm - Jacob Jacobs JR, MD at [facility] * 10/02/2021 11:30 am - Maritza Chavo, A.N.P. at [facility] 07/14/2021 - BARBARA Zarate* Z12.11 Encounter for screening for malignant neoplasm of colon * K57.30 Diverticulosis of large intestine without perforation or abscess without bleeding * K64.9 Unspecified hemorrhoids * N81.6 Rectocele Functional Status Description No Information Available Mental Status Description No Information Available Referrals Refer to Reason for Referral Status Appt Date Jacob Jacobs JR, MD COLONOSCOPY Scheduled [address] [place] [address] [phone] Radiology/Procedure 97102 Closed 02/13/2021
--- OUTSIDE RECORDS SUMMARY | 2021-08-28 12:24 | CCD | Summary of Care ---
Author Author [facility] Organization [facility] Address Unknown Phone Unavailable Care Team Providers Care Technical Support Technician Name Role Phone Kristy Lowe MD PCP Reason for Referral * Diagnostic Radiology (Routine) - Pending Insurance Authorization Diagnoses / Procedures Referred By Contact Referred To Conta ct Specialty Diagnoses Gait disturbance Myelopathy of thoracic region Procedures MR Thoracic Spine without Contrast Joel Brooke MD [address] [place] [address] Email: [facility] Radiology Referral ID Status Reason Start Date Expiration Visits Vi sits Date Requested Authorized [id number] Pending 08/12/2021 11/10/2022 1 1 Insurance Authorizatio n * Diagnostic Radiology (Routine) - Pending Insurance Authorization Diagnoses / Procedures Referred By Contact Referred To Conta ct Specialty Diagnoses Gait disturbance Myelopathy of thoracic region Procedures MR Cervical Spine without Contrast Joel Brooke MD [address] [place] [address] Email: [email or web address] [email or web address] Referral ID Status Reason Start Date Expiration Visits Vi sits Date Requested Authorized [id number] Pending 08/12/2021 11/10/2022 1 1 Insurance Authorizatio n * Consultation (Routine) - Open Diagnoses / Procedures Referred By Contact Referred To Conta ct Specialty Diagnoses Gait disturbance Myelopathy of thoracic region Joel Brooke MD [address] [place] [address] Email: [email or web address] Medicine Referral ID Status Reason Start Date Expiration Visits Vi sits Date Requested Authorized [id number] Open Specialty Services 08/12/2021 1 1 Required Reason for Visit * Reason Comments New Patient lumbar pain Encounter Details Care Team Description Date Type Department Joel Brooke MD [address] [place] [id number] [email or web address] Gait disturbance (Primary Dx); Myelopathy of thoracic region 07/24/2021 Office Visit [facility] , [facility] [address] [phone] Allergies Comments Active Allergy Reactions Severity Noted Date Adhesive Tape Other (See 05/10/2014 Comments) documented as of this encounter (statuses as of 08/16/2021) Medications End Date Status Medication Sig Dispensed Refills Start Date Active duloxetine (CYMBALTA) 20 Take 20 mg by 0 MG capsule mouth daily. Active Ibuprofen (ADVIL PO) Take by mouth 0 Active HYDROcodone-Acetaminophen TAKE ONE TO 0 5-325 MG Oral Tablet TWO TABLETS 1 (LORTAB) BY MOUTH EVERY 4 6 HOURS NEEDED FOR POST SURGICAL PAIN. MAXIMUM DAILY DOSE 8 TABLETS Active Aspirin 81 MG Oral Tablet Take by mouth 0 Delayed Release 4 Active Acetaminophen 325 MG Oral Take 650 mg 0 Tablet by mouth every 6 (six) hours as needed Active Systane 0.4-0.3 % 0 Ophthalmic Solution 4 (Polyethyl Glycol-Propyl Glycol) Active Advair HFA 115-21 MCG/ACT 0 Inhalation Aerosol 1 Active Albuterol Sulfate HFA 108 INHALE TWO 0 (90 Base) MCG/ACT PUFFS BY 1 Inhalation Aerosol MOUTH FOUR Solution (PROVENTIL HFA) TIMES A DAY NEEDED Active Losartan Potassium 50 MG Take 1 tablet 0 06/27 Oral Tablet (COZAAR) by mouth 1 daily 07/24/2021 Discontinued (Medication Rec oncilation) gabapentin (NEURONTIN) Take 300 mg 0 300 MG capsule by mouth Three times daily. 07/24/2021 Discontinued (Medication Rec oncilation) PREVNAR 13 SUSP 0 8 documented as of this encounter (statuses as of 08/16/2021) Active Problems Problem Noted Date Trigger finger 05/13/2014 documented as of this encounter (statuses as of 08/16/2021) Immunizations Name Administration Dates Next Due documented as of this encounter Social History Date Tobacco Use Types Packs/Day Years Used Never Smoker Smokeless Tobacco: Never Used Comments Alcohol Use Standard Drinks/Week ocassional Yes 0 (1 standard drink = 0.6 o z pure alcohol) Alcohol Habits Answer Date Recorded How often do you have a drink containing alcohol? No t asked How many drinks containing alcohol do you have on No t asked a typical day when you are drinking? How often do you have six or more drinks on one Not asked occasion? Comment: ocassional 05/10/2014 Sex Assigned at Date Recorded Not on file Date Recorded COVID-19 Exposure Response 07/24/2021 9:42 AM EDT In the last month, have you been in contact with No / Unsure someone who was confirmed or suspected to have Coronavirus / COVID-19? documented as of this encounter Last Filed Vital Signs Reading Time Taken Comments Vital Sign 150/83 07/24/2021 10:38 AM EDT Blood Pressure 76 07/24/2021 10:38 AM EDT Pulse - - Temperature - - Respiratory Rate - - Oxygen Saturation - - Inhaled Oxygen Concentration 98.9 kg (218 lb) 07/24/2021 10:38 AM EDT Weight 163.5 cm (5' 4.37") 07/24/2021 10:38 AM EDT Height 36.99 07/24/2021 10:38 AM EDT Body Mass Index documented in this encounter Patient Instructions * Patient Instructions* Salima Pappas LPN - 07/24/2021 10:15 AM EDT The patient is instructed to call the office with any question/concerns or if sy mptoms worsen. documented in this encounter Progress Notes * Joel Brooke MD - 07/24/2021 10:15 AM EDT Please CC a copy of todays note to Patient Care Team: Kristy Lowe MD as PCP - General (Orthopedic Surgery) Fitz Gruber MD (Anesthesiology) Nori Beal, BARBARA Sosa MD (Orthopedic Surgery) CHIEF COMPLAINT/ HISTORY of PRESENT ILLNESS: We are seeing Ary Navarrete in the office today for evaluation of her spinal pathology. Patient states that she rowland s been having increasing low back pain with leg symptoms. She also complains of loss of balance and recent episodes of falling. She does have history of knee arthritis that is followed by her general art specialist. She is referre d to us for evaluation of her spinal pathology. Patient states that she also rowland s history of asthma and COPD with prolonged scarring that is requiring inhalers. She states that she is also pending evaluation for psoriatic arthritis. She s tates that she can walk about 1 block before symptoms arise. I reviewed her pas t medical history and review of systems with her in the office today. She denie s any bowel bladder changes. MEDICATIONS: Current Outpatient Medications: Acetaminophen 325 MG Oral Tablet, Take 650 mg by mouth every 6 (six) abraham rs as needed, Disp: , Rfl: Advair HFA 115-21 MCG/ACT Inhalation Aerosol, , Disp: , Rfl: Albuterol Sulfate HFA 108 (90 Base) MCG/ACT Inhalation Aerosol Solution (PROVENTIL HFA), INHALE TWO PUFFS BY MOUTH FOUR TIMES A DAY NEEDED, Disp: , R fl: Aspirin 81 MG Oral Tablet Delayed Release, Take by mouth, Disp: , Rfl: duloxetine (CYMBALTA) 20 MG capsule, Take 20 mg by mouth daily., Disp: , Rfl: HYDROcodone-Acetaminophen 5-325 MG Oral Tablet (LORTAB), TAKE ONE TO TWO TABLETS BY MOUTH EVERY 4 6 HOURS NEEDED FOR POST SURGICAL PAIN. MAXIMUM DAILY DOSE 8 TABLETS, Disp: , Rfl: Ibuprofen (ADVIL PO), Take by mouth, Disp: , Rfl: Losartan Potassium 50 MG Oral Tablet (COZAAR), Take 1 tablet by mouth da erlin, Disp: , Rfl: Systane 0.4-0.3 % Ophthalmic Solution (Polyethyl Glycol-Propyl Glycol), , Disp: , Rfl: ALLERGIES: Allergies Allergen Reactions Adhesive Tape Other (See Comments) Patient denies any constitutional symptoms or problems with overflow incontinenc e of bladder. PHYSICAL EXAMINATION: Vital Signs: Visit Vitals BP 150/83 Pulse 76 Ht 1.635 m (5' 4.37") Wt 98.9 kg (218 lb) BMI 36.99 kg/m , Body mass index is 36.99 kg/m., Respiartory rate/effort:18/normal General : She is well groomed Mood/Affect/Hearing: Normal/Normal/Normal Memory/Judgement/Insight: Normal/Normal/Normal Orientation: alert and oriented x 3 Skin/Incision/wound: unremarkable Gait : Patient ambulates with antalgic gait. Spine and Extremity (Palpation/Strength/Motion/Stabilty): No evidence of gross s amy instability noted on exam. Paraspinal muscle strength is within normal li mits. Discomfort noted with lumbar range of motion and paraspinal muscle palpat ion. She has difficulty with iohxiv-yy-evyb coordination. Positive straight le g raise test noted. DIAGNOSTIC IMAGING/STUDIES: X-ray of her lumbar spine demonstrates multilevel de generative changes with associated spondylolisthesis at L4-5. Cervical x-ray de monstrates degenerative changes with disc osteophyte complex. Most recent lumba r MRI from outside facility dated May 2021 demonstrates lumbar spinal sten osis worst at L3-4 and L4-5. All images are visualized and reviewed with patient in the office today. ASSESSMENT/PLAN: 71-year-old female with history of increasing gait disturbance in addition to episodes of falling and losing balance. She has significant lung disease currently with inhalers for her COPD and asthma. She also has pending work-up for psoriatic arthritis. Lumbar imaging demonstrates spondylolisthesis with associated spinal stenosis causing neurogenic claudication symptoms. We di scussed surgical and nonsurgical treatment options for her lumbar spine. Surger y would entail decompression with stabilization. Patient would like to hold off on this and consider further modalities with shipyard painter. We rowland ve referred her to see pain service locally in [facility]. In addition, I would like to further evaluate her cervical and thoracic region due to her increasing difficulty with balance. We will see her back after the MRI of cervical and thoracic spine is complete to go over the results with her. She is also pending knee replacement surgery with her general orthopedic surgeon wh ich could also cause her gait disturbance. Please note total time spent on the date of patient's encounter was 60 minutes. This includes ejrd-ay-jefn and ffu-fydh-ms-face time including but not limited to 1.) obtaining and reviewing medical records /tests, 2.) charting and ordering medication/tests, and 3.) coordination of care. Joel Brooke MD [employer] Machine Operator Spine Surgery [facility] Department of Orthopedic Surgery documented in this encounter Plan of Treatment Care Team Description Date Type Specialty Joel Brooke MD [address] [place] [phone] [email or web address] 08/26/2021 Appointment Radiology Joel Brooke MD [address] [place] [address] [email or web address] 08/26/2021 Appointment Radiology Joel Brooke MD [address] [place] [address] [email or web address] 09/08/2021 Office Visit Orthopedic Surgery Order Schedule Name Type Priority Associated Diag noses Expected: 08/12/2021, Expires: 3 MR Cervical Spine without Imaging Routine Gait disturbance Contrast Myelopathy of thoracic region Expected: 08/12/2021, Expires: 3 MR Thoracic Spine without Imaging Routine Gait disturbance Contrast Myelopathy of thoracic region Order Schedule Name Type Priority Associated Diag noses Ordered: 08/12/2021 Ambulatory referral to Outpatient Routine [facility] Referral [facility] Health Maintenance Due Date Last Done Comments Hepatitis C Screening (B. 1950 [id number]) MMR Vaccines (1 of - 1951 Standard series) Varicella Vaccines (1 of 1951 2 - 2-dose childhood series) DTaP,Tdap,and Td Vaccines 1955 (1 - Tdap) Breast Cancer Screening 2 1998 years Colon Cancer Screening 10 1998 yrs Zoster Vaccines (1 of 2) 1998 Osteoporosis Screening 2 2013 yr Pneumococcal Vaccine: 65+ 2013 Years (1 of 1 - PPSV23) Influenza Vaccine 06/20/2021 06/09/2021 COVID-19 Vaccine Completed 06/14/2021, 11/14/2020, 10/24/2020 HIB Vaccines Aged Out No longer eligible based on patient's age to complete this topic Hepatitis A Vaccines Aged Out No longer eligibl e based on patient's age to complete this topic Hepatitis B Vaccines Aged Out No longer eligibl e based on patient's age to complete this topic IPV Vaccines Aged Out No longer eligible based on patient's age to complete this topic Pneumococcal Vaccine: Aged Out No longer eligib le based on patient's age to Pediatrics (0 to 5 Years) complete this topic and At-Risk Patients (6 to 64 Years) documented as of this encounter Results Not on filedocumented in this encounter Visit Diagnoses Diagnosis Gait disturbance - Primary Abnormality of gait 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
--- OUTSIDE RECORDS SUMMARY | 2021-08-28 12:24 | CCD | Continuity of Care Document ---
Author Author [facility] Organization Unknown Address [address] [address] Phone [phone] Care Team Providers Care Service Order Dispatcher Chief Name Role Phone Lenin Swann M.D. AUTM [phone] Problems Active Problems Provider Date Asthma without status asthmaticus Onset: 04/11/2002 Allergic rhinitis Onset: 04/11/2002 Allergic urticaria Onset: 04/11/2002 Psoriasis Onset: 04/11/2002 Fibrocystic disease of breast Onset: Headache Onset: 04/11/2002 Hyperlipidemia Gabe Potter M.D. Onset: 08/30/2003 Myalgia & Myositis Unspecified Gabe Potter M.D. Onset: 09/24/2005 Low back pain Gabe Potter M.D. Onset: 09/24/2005 Thoracic and lumbosacral neuritis Gabe Potter M.D. Onse t: 09/24/2005 Disturbance in sleep behavior Gabe Potter M.D. Onset: 0 09/24/2005 Malignant melanoma of skin of face Gabe Potter M.D. Ons et: 07/15/2007 Vitamin D deficiency Denny Augustin RPA Onset: 0 Psoriasis with arthropathy Denny Augustin RPA Onset: Note: Dr. De Guzman/Brandyn Atrophic vaginitis Shelley Cam RPA-C Onset: 2012 Essential hypertension Denny Augustin RPA Onset: 021 Knee pain Denny Augustin RPA Onset: 11/08/2020 Social History Type Date Description Comments Sex Unknown Tobacco Use Start: Unknown Former cigarette smo ker: 1 1/2 packs daily for 29 years, quit in 1987. ETOH Use Current alcohol use: drinks bee r or mixed drinks about once a week. Tobacco Use Start: Unknown End: Unknown Patient is a former smoker Seat Belt/Car Seat always Allergies and adverse reactions Active Allergies Criticality Reaction | Severity Comments Date IVP Dye Unable to assess criticality 04/11/2002 Sulfa Drugs Unable to assess criticality 04/11/2002 Medications Active Medications SIG Qnty Indications Ordering Provide r Date Diflucan 200mg Tablets take 1 tablet by mouth daily for 5 days and then once a week 10tabs Brian Beal D.O., [facility] 06/09/2021 Cholestyramine Light 4gm Packet 1 packet with 8 ounces of water every day 30units Brian Beal D.O., [facility] 04/02/2020 Loperamide HCL 2mg Capsules 2 by mouth stat followed by 1 by mouth every each loose stool x max of 8/day. 30caps Brian Beal D.O., [facility] 04/02/2020 Vitamin D-1000 Maximum Strength 1000Unit Tablets 2 by mouth every day 90tabs A[facility] Santacruz, [facility] 01/29/[address] Part 1 by mouth twice a day 180caps [facility] D.O., [facility] 01/2014 Losartan Potassium 50mg Tablets 1 by mouth every day Unknown Hydrochlorothiazide 25mg Tablets 1 by mouth every day Unknown History Medications Nystatin 10Bu Powder apply three times a day under breasts/abdominal fold as needed 2units Brian Beal D.O., [facility] 06/09/2021 - 06/19/2021 Guaifenesin 100mg/5ML Liquid 10ml by mouth every 4 hours as needed cough 480units Jordyn Santarcuz, [facility] 04/22/2021 - 05/03/2021 Solu-Medrol 125mg Solution Rec intramuscular stat 1units Brian Beal D.O., [facility] 04/21/2021 - 06/09/2021 Levofloxacin 500mg Tablets 1 by mouth every day 10tabs Brian Beal D.O., [facility] - 04/26/2021 Prednisone 10mg Tablets 2 po tid x 3 days, then 1 po tid x 3 days, then 1 po bid x 3 days, then 1 po qd x 3 days, then 1/2 po qd 42tabs Brian ArringtonMarcie Beal D.O., [facility] - 06/09/2021 Medications Administered in Office Medication SIG Qnty Indications Ordering Provider Date Injection (SC)/(Im) Injection Denny Augustin, [facility] 04/21/2021 Injection (SC)/(Im) Injection Nurses Schedule 06/07/2019 Injection (SC)/(Im) Injection Denny Augustin, RPA 08/24/2017 Injection (SC)/(Im) Injection Denny Augustin, RPA 07/05/2012 Injection (SC)/(Im) Injection Denny Augustin, RPA 06/30/2011 Injection (SC)/(Im) Injection Denny Augustin, RPA 10/13/2010 Injection (SC)/(Im) Injection Denny Augustin, [facility] 07/16/2010 Injection (SC)/(Im) Injection Gabe Potter M.D. 07/03/2009 Injection Subcutaneous Or Intramuscular Injection Gabe Potter M.D. 2007 Injection Subcutaneous Or Intramuscular Injection Shlomo Naranjo 8 Injection Subcutaneous Or Intramuscular Injection Shlomo Naranjo 8 Injection Subcutaneous Or Intramuscular Injection Gabe Potter M.D. 2006 Immunizations CPT Code Status Date Vaccine Lot # [id number] Given 06/09/2021 Influenza Virus Vaccine, Quadrivalent, Slit Virus, Im Use 3Y & Up [id number] 97746 Given 07/10/2020 Influenza Virus Vaccine, Quadrivalent, Slit Virus, Im Use 3Y & Up [id number] 72693 Given 06/07/2019 Influenza Virus Vaccine, Quadrivalent, Slit Virus, Im Use 3Y & Up [id number] 05563 Given 07/07/2018 Influenza Virus Vaccine, Quadrivalent, Slit Virus, Im Use 3Y & Up [id number] 22082 Given 07/17/2015 Influenza Vaccin e (Fluzone) 3Yrs Of Age Or Older Medicare Plans [id number] 49271 Given 07/17/2015 Pneumococcal Immunization L0 [id number] 26860 Given 10/11/2013 Influenza Vaccin e (Fluzone) 3Yrs Of Age Or Older Medicare Plans 01589 Given 10/11/2013 Influenza Virus Vac. Split Virus Individuals 3 Years And Above [id number] 12685 Given 07/05/2012 Influenza Virus Vac. Split Virus Individuals 3 Years And Above [id number] 02757 Given 06/30/2011 Influenza Virus Vac. Split Virus Individuals 3 Years And Above [id number] 58636 Given 07/16/2010 Influenza Virus Vac. Split Virus Individuals 3 Years And Above [id number] 21508 Given 07/03/2009 Influenza Virus Vac. Split Virus Individuals 3 Years And Above [id number] 78617 Given 07/10/2008 Influenza Virus Vac. Split Virus Individuals 3 Years And Above [id number] 67332 Given 10/11/2007 PPD Tuberculosis Intradermal 93053 Given 07/15/2007 Influenza Virus Vac. Split Virus Individuals 3 Years And Above Vital Signs Date Vital Result Comment 06/09/2021 3:15pm BP Systolic 116 mmHg BP Diastolic 80 mmHg Body Temperature 97.3 F Heart Rate 97 /min Respiratory Rate 16 /min Height 66 inches 5'6" Weight 215.00 lb [place] Body Weight 130 lb BMI (Body Mass Index) 34.7 kg/m2 O2 % BldC Oximetry 95 % 04/22/2021 9:20am BP Systolic 110 mmHg BP Diastolic 50 mmHg Body Temperature 97.2 F Heart Rate 114 /min Respiratory Rate 24 /min Height 66 inches 5'6" Weight 218.00 lb [place] Body Weight 130 lb BMI (Body Mass Index) 35.2 kg/m2 O2 % BldC Oximetry 95 % Results Test Acquired Date Facility Test Result H/L Range Note Coronavirus 2019 Nasopharygeal 08/23/2021 [facility] ([facility]) [phone] Coronavirus 2019 Nasopharygeal ASSAY INFORMATIO <SEE N OTE> 1 1 ASSAY INFORMATION: Real Time RT-PCR NOTE: The COVID-19 assay has been cleared by the U.S. Food and Drug Administration under the Emergency Use Authorization (EUA). [facility] and [facility] are designated as high complexity laboratories by the Clinical Laboratory Improvement Amendments of 1988(CLIA) and are qualified to perform this test. Not Detected Procedures Date Code Description Status 06/09/2021 92753 Office/Outpatient Established Mo d MDM 30-39 Min Completed 04/22/2021 36877 Office/Outpatient Established Lo w MDM 20-29 Min Completed 04/21/2021 86925 Office/Outpatient Established Lo w MDM 20-29 Min Completed 04/21/2021 91808 Injection (SC)/(Im) Completed 04/18/2021 62581 Office/Outpatient Established Lo w MDM 20-29 Min Completed Medical Devices Description No Information Available Encounters Type Date Location Provider Dx Diagnosis Office Visit 06/09/2021 1:00p [place] [facility] Denny Augustin, RP A I10 Essential (primary) hypertension E78.5 Hyperlipidemia, unspecified M54.5 Low back pain B35.4 Tinea corporis Z23 Encounter for immunization Office Visit 04/22/2021 9:45a [place] [facility] Denny Augustin, RP A J20.9 Acute bronchitis, unspecified Office Visit 04/21/2021 10:40a [place] [facility] Denny Augustin, RP A J20.9 Acute bronchitis, unspecified Office Visit 04/18/2021 1:45p [place] [facility] Denny Augustin, RP A J44.1 Chronic obstructive pulmonary disease w (acute) exacerbation Assessments Date Code Description Provider 06/09/2021 I10 Essential (primary) hypertension Denny Augustin, RPA 06/09/2021 E78.5 Hyperlipidemia, unspecified Denny Pantoja, RPA 06/09/2021 M54.5 Low back pain Denny Augustin, RPA 06/09/2021 B35.4 Tinea corporis Denny Augustin, RPA 06/09/2021 Z23 Encounter for immunization Denny Guo, RPA 04/22/2021 J20.9 Acute bronchitis, unspecified Denny Mojica, RPA 04/21/2021 J20.9 Acute bronchitis, unspecified Denny Mojica, RPA 04/18/2021 J44.1 Chronic obstructive pulmonary disease with (acute) exacerbation Denny Augustin, RPA Plan of Treatment No Information Available Functional Status Description No Information Available Mental Status Description No Information Available Referrals Refer to Reason for Referral Status Appt Date Jacob Jacobs M.D. 10 yr f/u colonoscopy Sent 07/14 [address] [facility], [address] [place] [address] [phone] [facility] Annual exam Sent 0 [address] [place] [address] [phone]
--- OUTSIDE RECORDS SUMMARY | 2021-08-28 12:25 | CCD | Continuity of Care Document ---
Author Author Ary AUGUSTIN [facility] Organization Unknown Address [address] [address] Phone [phone] Care Team Providers Care Manager Skilled Name Role Phone Lenin Swann M.D. AUTM [phone] Problems Active Problems Provider Date Asthma without [...] a former smoker Seat Belt/Car Seat always Allergies, Adverse Reactions, Alerts Active Allergies Criticality Reaction | Severity Comments Date IVP Dye Unable to assess criticality 04/11/2002 Sulfa Drugs Unable to assess criticality 04/11/2002 Medications Active Medications SIG Qnty Indications Ordering Provide r Date Diflucan 200mg Tablets take 1 tablet by mouth daily for 5 days and then once a week 10tabs [facility].O., [facility] 06/09/2021 Nystatin 10Bu Powder apply three times a day under breasts/abdominal fold as needed 2units Brian Beal D.O., [facility] 06/09/2021 Cholestyramine Light 4gm Packet 1 packet with 8 ounces of water every day 30units Brian Beal D.O., [facility] 04/02/2020 Loperamide HCL 2mg Capsules 2 by mouth stat followed by 1 by mouth every each loose stool x max of 8/day. 30caps Brian Beal D.O., [facility] 04/02/2020 Vitamin D-1000 Maximum Strength 1000Unit Tablets 2 by mouth every day 90tabs Aneudy Santacruz, [facility] 01/29/[address] Part 1 by mouth twice a day 180caps Brian Beal D.O., [facility] 01/2014 Losartan Potassium 50mg Tablets 1 by mouth every day Unknown Hydrochlorothiazide 25mg Tablets 1 by mouth every day Unknown History Medications Guaifenesin 100mg/5ML Liquid 10ml by mouth every 4 hours as needed cough 480units Jordyn Santacruz, [facility] 04/22/2021 - 05/03/2021 Solu-Medrol 125mg Solution Rec intramuscular stat 1units Brian Beal D.O., [facility] 04/21/2021 - 06/09/2021 Levofloxacin 500mg Tablets 1 by mouth every day 10tabs Brian Beal D.O., [facility] - 04/26/2021 Prednisone 10mg Tablets 2 po tid x 3 days, then 1 po tid x 3 days, then 1 po bid x 3 days, then 1 po qd x 3 days, then 1/2 po qd 42tabs Brian Beal D.O., [facility] - 06/09/2021 Fexofenadine HCL 180mg Tablets 1 by mouth every day 14tabs Brian Beal D.O., [facility] - 02/17/2021 Prednisone 10mg Tablets 2 po tid x 3 days, then 1 po tid x 3 days, then 1 po bid x 3 days, then 1 po qd x 3 days, then 1/2 po qd 42tabs Brian Beal D.O., [facility] - 04/18/2021 Medications Administered in Office Medication SIG Qnty Indications Ordering Provider Date Injection (SC)/(Im) Injection Denny Augustin, [facility] 04/21/2021 Injection (SC)/(Im) Injection Nurses Schedule 06/07/2019 Injection (SC)/(Im) Injection Denny Augustin, [facility] 08/24/2017 Injection (SC)/(Im) Injection Denny Augustin, [facility] 07/05/2012 Injection (SC)/(Im) Injection Denny Augustin, [facility] 06/30/2011 Injection (SC)/(Im) Injection Denny Augustin, [facility] 10/13/2010 Injection (SC)/(Im) Injection Denny Augustin, [facility] 07/16/2010 Injection (SC)/(Im) Injection Gabe Potter M.D. 07/03/2009 Injection Subcutaneous Or Intramuscular Injection Gabe Potter M.D. 2007 Injection Subcutaneous Or Intramuscular Injection Shlomo Naranjo 8 Injection Subcutaneous Or Intramuscular Injection Shlomo Naranjo 8 Injection Subcutaneous Or Intramuscular Injection Gabe Potter M.D. 2006 Immunizations CPT Code Status Date Vaccine Lot # 21563 Given 06/09/2021 Influenza Virus Vaccine, Quadrivalent, Slit Virus, Im Use 3Y & Up [id number] 49161 Given 07/10/2020 Influenza Virus Vaccine, Quadrivalent, Slit Virus, Im Use 3Y & Up [id number] 93140 Given 06/07/2019 Influenza Virus Vaccine, Quadrivalent, Slit Virus, Im Use 3Y & Up [id number] 43993 Given 07/07/2018 Influenza Virus Vaccine, Quadrivalent, Slit Virus, Im Use 3Y & Up [id number] 20510 Given 07/17/2015 Influenza Vaccin e (Fluzone) 3Yrs Of Age Or Older Medicare Plans [id number] 70512 Given 07/17/2015 Pneumococcal Immunization [id number] 56595 Given 10/11/2013 Influenza Vaccin e (Fluzone) 3Yrs Of Age Or Older Medicare Plans 80665 Given 10/11/2013 Influenza Virus Vac. Split Virus Individuals 3 Years And Above [id number] 70697 Given 07/05/2012 Influenza Virus Vac. Split Virus Individuals 3 Years And Above [id number] 46030 Given 06/30/2011 Influenza Virus Vac. Split Virus Individuals 3 Years And Above [id number] 44861 Given 07/16/2010 Influenza Virus Vac. Split Virus Individuals 3 Years And Above [id number] 91736 Given 07/03/2009 Influenza Virus Vac. Split Virus Individuals 3 Years And Above [id number] 53373 Given 07/10/2008 Influenza Virus Vac. Split Virus Individuals 3 Years And Above [id number] 61196 Given 10/11/2007 PPD Tuberculosis Intradermal 65850 Given 07/15/2007 Influenza Virus Vac. Split Virus Individuals 3 Years And Above Vital Signs Date Vital Result Comment 06/09/2021 3:15pm BP Systolic 116 mmHg BP Diastolic 80 mmHg Body Temperature 97.3 F Heart Rate 97 /min Respiratory Rate 16 /min Height 66 inches 5'6" Weight 215.00 lb [place] Body Weight 130 lb BMI (Body Mass Index) 34.7 kg/m2 O2 % BldC Oximetry 95 % 04/22/2021 9:20am BP Systolic 110 mmHg BP Diastolic 50 mmHg Body Temperature 97.2 F Heart Rate 114 /min Respiratory Rate 24 /min Height 66 inches 5'6" Weight 218.00 lb [place] Body Weight 130 lb BMI (Body Mass Index) 35.2 kg/m2 O2 % BldC Oximetry 95 % Results Test Acquired Date Facility Test Result H/L Range Note Laboratory test finding 02/07/2021 [facility] [place] Vitamin D, 25-Hydroxy 38.2 ng/mL 30.0-100.0 1 Laboratory test finding 02/07/2021 [facility] TSH 1.136 ulU/mL 0.60 - 4.8 CBC 02/07/2021 [facility] WBC 6.7 10E3/uL 4.1 - 10.9 2 RBC 4.51 10E6/uL 4.20 - 6.30 HGB 13.6 g/dL 12.0 - 18.0 HCT 41.1 % 37.0 - 51.0 MCV 91.1 fL 80.0 - 97.0 MCH 30.2 pg 26.0 - 32.0 MCHC 33.1 g/dL 31.0 - 36.0 PLT 280 10E3/uL 140 - 440 RDW-CV 13.0 % 11.5 - 14.5 Lym% 29.7 % 10.0 - 58.5 Neut% 55.7 % 37.0 - 92.0 MXD% 14.6 % 0.1 - 24.0 Lym# 2.0 10E3/uL 0.6 - 4.1 Neut# 3.7 % 2.0 - 7.8 MXD# 1.0 10E3/uL 0.0 - 1.8 MPV 10.3 fL 9.0 - 13.0 Comment NO EDTA AB CMP 02/07/2021 [facility] Glu 97 mg/dL 70 - 110 BUN 29 mg/dL High 8 - 23 Creat 1.1 mg/dL High 0.5 - 1.0 BUN/Creatinine Ratio 26.3 CALC Na 134 mmol/L Low 136 - 145 K 4.7 mmol/L 3.5 - 5.1 CL 99.2 mmol/L 98.0 - 107.0 Co2 22.3 mmol/L 22.0 - 29.0 CA 9.4 mg/dL 8.6 - 10.2 TP 7.4 g/dL 6.6 - 8.7 Alb 4.4 g/dL 3.4 - 4.8 A/G Ratio 1.5 CALC Globulin 3.0 CALC Alp 65.2 U/L 35 - 129 Alt (SGPT) 16 U/L 0 - 41 Ast (Sgot) 19 U/L 0 - 40 Tbili 0.33 mg/dL 0.0 - 1.2 Osmolality-Calculated 273.9 CALC Anion Gap 17 mmol/L eGFR 58 # Calc 3 eGFR Non-Afr. Polish 50 # Calc 4 Lipid Panel 02/07/2021 [facility] Chol 197 mg/dL 0 - 200 Trig 93 mg/dL 40 - 200 HDL 52 mg/dL 45 - 65 LDL_C 127 Calc 75 - 129 Cho/HDL Ratio 3.8 CALC 1 Vitamin D deficiency has bee n defined by the [place] of [employer] and an Endocrine Society practice guideline as a level of serum 25-OH vitamin D less than 20 ng/mL (1,2). The Endocrine Society went on to further define vitamin D insufficiency as a level between 21 and 29 ng/mL (2). 1. IOM ([place] of [employer]). 2010. Di etary reference intakes for calcium and D. [place]: The National AcademLockbox Press. 2. Murali MF, Rajnit MURPHY, Marisela hill LIN, et al. Evaluation, treatment, and prevention of vitamin D deficiency: an Endocrine Society clinical practice guideline. JCEM. 2010; 96(7):1911-30. 2 NORMAL RANGES Age WBC RBC HGB HCT MCV PLT Adult M 4.1-10.9 4.20-6.30 12.0-18.0 37.0-51.0 80-97 140-440 Adult F 4.1-10.9 4.04-5.48 12.0-18.0 37.0-51.0 80-97 140-440 0 -1 Yr 5.0-20.0 3.9-5.9 15-18 MV: 44 MV: 91 MV: 277 2-9 Yr. 6.0-17.0 3.8-5.4 11-13 MV: 37 MV: 78 MV: 300 10 Yrs. 5.0-13.0 3.8-5.4 12-15 MV: 39 MV: 80 MV: 250 NOTE: * FOR ADULT BLACK MALES AND FEMALES, NORMAL WBC IS 2.9-7.7 K/ML * FOR ADULT BLACK MALES AND FEMALES, NORMAL RBC,HGB, AND HCT IS 5% LESS SOURCE FOR DATA: [employer] 1800 OPERATION MANUAL( AUTOMATED BLOOD COUNTS AND DIFF.) APPENDIX B-3 CHRONIC KIDNEY DISEASE STAGING PER NKF: MALE GFR INTERPRETATION: 20-49 YRS: >60 mL/min Normal 50-59 YRS: >56 mL/min Normal 60-69 YRS: >49 mL/min Normal 70-79 YRS: >42 mL/min Normal 80 and above >35 mL/min Normal FEMALE GRF INTERPRETATION: 20-39 YRS: >60 mL/min Normal 40-49 YRS: >58 mL/min Normal 50-59 YRS: >51 mL/min Normal 60-69 YRS: >45 mL/min Normal 70-79 YRS: >39 mL/min Normal 80 and above >32 mL/min NormalCLASSIFICATION CHOLESTEROL FOR ADULTS CHILDREN/ADOLESCENTS* DESIRABLE: <200 MG/DL <170 MG/DL BORDER-LINE HIGH RISK: 200-239 MG/DL 170-199 MG/DL HIGH RISK: >240 MG/DL >200 MG/DL CLASS. FOR PRIMARY LDL CHOL PREVENTION: LDL CHOL-CHILD/ADOLESCENTS* DESIRABLE: <130 MG/DL <110 MG/DL BORDERLINE-HIGH RISK: 130-159 MG/DL 110-129 MG/DL HIGH RISK: >160 MG/DL >130 MG/DL *CHILDREN AND ADOLESCENTS REPRESENTS INDIVIDUALA AGED 2-19 YEARS EXCLUSIVE. 3 CKD-EPI 4 CKD-EPI Procedures Date Code Description Status 06/09/2021 53511 Office/Outpatient Established Mo d MDM 30-39 Min Completed 04/22/2021 26287 Office/Outpatient Established Lo w MDM 20-29 Min Completed 04/21/2021 14642 Office/Outpatient Established Lo w MDM 20-29 Min Completed 04/21/2021 97096 Injection (SC)/(Im) Completed 04/18/2021 88621 Office/Outpatient Established Lo w MDM 20-29 Min Completed 02/07/2021 50026 Office/Outpatient Established Mo d MDM 30-39 Min Completed Medical Devices Description No Information Available Encounters Type Date Location Provider Dx Diagnosis Office Visit 06/09/2021 1:00p [place] [facility] Denny Augustin, RP A I10 Essential (primary) hypertension E78.5 Hyperlipidemia, unspecified M54.5 Low back pain B35.4 Tinea corporis Office Visit 04/22/2021 9:45a [place] [facility] Denny Augustin, RP A J20.9 Acute bronchitis, unspecified Office Visit 04/21/2021 10:40a [place] [facility] Denny Augustin, RP A J20.9 Acute bronchitis, unspecified Office Visit 04/18/2021 1:45p [place] [facility] Denny Augustin, RP A J44.1 Chronic obstructive pulmonary disease w (acute) exacerbation Office Visit 02/07/2021 10:20a [place] [facility] Denny Augustin, RP A I10 Essential (primary) hypertension E78.5 Hyperlipidemia, unspecified M54.5 Low back pain G47.9 Sleep disorder, unspecified J45.909 Unspecified asthma, uncompli cated R21 Rash and other nonspecific s kin eruption Assessments Date Code Description Provider 06/09/2021 I10 Essential (primary) hypertension Denny Augustin, RPA 06/09/2021 E78.5 Hyperlipidemia, unspecified Denny Pantoja, RPA 06/09/2021 M54.5 Low back pain Denny Augustin, RPA 06/09/2021 B35.4 Tinea corporis Denny Augustin, RPA 04/22/2021 J20.9 Acute bronchitis, unspecified Denny Mojica, RPA 04/21/2021 J20.9 Acute bronchitis, unspecified Denny Mojica, RPA 04/18/2021 J44.1 Chronic obstructive pulmonary disease with (acute) exacerbation Denny Augustin, RPA 02/07/2021 I10 Essential (primary) hypertension Denny Augustin, RPA 02/07/2021 E78.5 Hyperlipidemia, unspecified Denny Pantoja, RPA 02/07/2021 M54.5 Low back pain Denny Augustin, RPA 02/07/2021 G47.9 Sleep disorder, unspecified Denny Pantoja, RPA 02/07/2021 J45.909 Unspecified asthma, uncomplicate d Denny Augustin, RPA 02/07/2021 R21 Rash and other nonspecific skin eruption Denny Augustin, [facility] Plan of Treatment No Information Available Functional Status Description No Information Available Mental Status Description No Information Available Referrals Refer to Reason for Referral Status Appt Date Jacob Jacobs M.D. 10 yr f/u colonoscopy Created [address] [facility], [address] [place] [address] [phone] [facility] Annual exam Created 0 [address] [place] [address] [phone]
--- OUTSIDE RECORDS SUMMARY | 2021-08-28 12:25 | CCD ---
Author Author David Simpson MD [facility] Organization David Simpson MD [facility] Address [address] [address] Phone Care Team Providers Care Gum Worker Name Role Phone Calvin YODER, MARY, David Mccord Unavailable [phone] Brian Beal DO Unavailable [phone] Denny Santiago PP [phone] Dung Josue MD Unavailable [phone] Reason for Referral No Reason for Referral Recorded Problems Includes: Active, inactive, and resolved Problems All Visits Onset Date - Time Resolved Date - Time Provider Co ndition Status Posterior Capsule Opacification Eccentric Capsule Left Eye 0 02/23/2020 - 12:00AM David Simpson MD, FACS Active Pseudophakia 02/23/2020 - 12:00AM David Simpson MD, FACS Active History of Nicotine Dependence 12/05/2015 - 12:00AM David Simpson MD, FACS Active Note: Unchanged Essential Hypertension 12/05/2015 - 12:00AM David Davis MD, FACS Active Pinguecula Bilateral 12/05/2015 - 12:00AM David Chin MD, FACS Active Vitreous degeneration, bilateral 12/05/2015 - 12:00AM David Simpson MD, FACS Active Retinopathy Hypertensive Both Eyes 12/26/2014 - 12:00AM David Simpson MD, FACS Active Note: Unchanged Conjunctivitis Chronic Allergic 10/08/2014 - 12:00AM David Simpson MD, FACS Active Note: Unchanged Eyelid Disorder 10/08/2014 - 12:00AM David sherman MD, FACS Active Note: Unchanged - 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 Conjunctivitis Acute Both Eyes 04/02/2014 - 12:00AM Unknown - Un known David Simpson MD, FACS Resolved Note: Unchanged Dermatochalasis Both Eyelids 11/03/2013 - 12:00AM David Simpson MD, FACS Active Note: Unchanged Pinguecula 11/03/2013 - 12:00AM David Simpson MD, FACS Inactive Note: Unchanged Dry Eye Syndrome Both Eyes 11/03/2013 - 12:00AM David Simpson MD, FACS Active Note: Unchanged Vitreous Floaters Both Eyes 11/03/2013 - 12:00AM David Simpson MD, FACS Inactive Note: Unchanged Plan of Treatment No Plan of Treatment Recorded Assessments Includes: Assessments for all patient encounters Findings Encounter Date Dry eye syndrome of both eyes TRIAGE NON URGENT with Jordyn Simpson MD, FACS 07/22/2020 Essential hypertension TRIAGE NON URGENT with David Locke MD, FACS 07/22/2020 History of nicotine dependence TRIAGE NON URGENT with David Simpson MD, FACS 07/22/2020 Hypertensive retinopathy of both eyes TRIAGE NON URGEN T with David Simpson MD, FACS 07/22/2020 Posterior capsule opacification of eccentric capsule i n the left eye TRIAGE NON URGENT with David Simpson MD, FACS 07/22/2020 Bilateral pinguecula 1 Year Follow-Up with David sherman MD, FACS 02/23/2020 Dry eye syndrome of both eyes 1 Year Follow-Up with Elijah Simpson MD, FACS 02/23/2020 Essential hypertension 1 Year Follow-Up with David Gaming MD, FACS 02/23/2020 History of nicotine dependence 1 Year Follow-Up with Jordyn Simpson MD, FACS 02/23/2020 Hypertensive retinopathy of both eyes 1 Year Follow-Up with David Simpson MD, FACS 02/23/2020 Posterior capsule opacification of eccentric capsule i n the left eye 1 Year Follow-Up with David Simpson MD, FACS 02/23/2020 Pseudophakia 1 Year Follow-Up with David mayer MD, FACS 02/23/2020 Bilateral regular astigmatism REFRACTION with David Locke MD, FACS 07/25/2018 Bilateral pinguecula 1 Year Follow-Up with David sherman MD, FACS 10/15/2017 Dry eye syndrome of both eyes 1 Year Follow-Up with Elijah Simpson MD, FACS 10/15/2017 Essential (primary) hypertension 1 Year Follow-Up with David Simpson MD, FACS 10/15/2017 History of nicotine dependence 1 Year Follow-Up with Jordyn Simpson MD, FACS 10/15/2017 Hypertensive retinopathy of both eyes 1 Year Follow-Up with David Simpson MD, FACS 10/15/2017 Bilateral pinguecula 1 Year Follow-Up with David sherman MD, FACS 10/20/2016 Dry eye syndrome of both eyes 1 Year Follow-Up with Elijah Simpson MD, FACS 10/20/2016 Essential (primary) hypertension 1 Year Follow-Up with David Sipmson MD, FACS 10/20/2016 History of nicotine dependence 1 Year Follow-Up with Jordyn Simpson MD, FACS 10/20/2016 Hypertensive retinopathy of both eyes 1 Year Follow-Up with David Simpson MD, FACS 10/20/2016 Bilateral pinguecula 1 Year Follow-Up with David sherman MD, FACS 10/07/2015 Dry eye syndrome of both eyes 1 Year Follow-Up with Elijah Simpson MD, FACS 10/07/2015 Essential hypertension 1 Year Follow-Up with David Gaming MD, FACS 10/07/2015 History of nicotine dependence 1 Year Follow-Up with Jordyn Simpson MD, FACS 10/07/2015 Hypertensive retinopathy of both eyes 1 Year Follow-Up with David Simpson MD, FACS 10/07/2015 Chronic allergic conjunctivitis both eyes 6 Month Fol low-Up with David Simpson MD, FACS 10/08/2014 Dermatochalasis of both eyes upper and lower lids 6 M onth Follow-Up with David Simpson MD, FACS 10/08/2014 Dry eye syndrome of both eyes 6 Month Follow-Up with Jordyn Simpson MD, FACS 10/08/2014 Eyelid disorder - Floppy Eyelid Syndrome OU 6 Month F ollow-Up with David Simpson MD, FACS 10/08/2014 Hypertensive retinopathy of both eyes 6 Month Follow-U p with David Simpson MD, FACS 10/08/2014 Pinguecula both eyes 6 Month Follow-Up with David Gaming MD, FACS 10/08/2014 Vitreous floaters in both eyes 6 Month Follow-Up with David Simpson MD, FACS 10/08/2014 Acute conjunctivitis of both eyes 4 Month Follow-Up [facility] David Simpson MD, FACS 04/02/2014 Dermatochalasis of both eyes 4 Month Follow-Up with Elijah Simpson MD, FACS 04/02/2014 Dry eye syndrome of both eyes 4 Month Follow-Up with Jordyn Simpson MD, FACS 04/02/2014 Pinguecula of both eyes 4 Month Follow-Up with David Chin MD, FACS 04/02/2014 Vitreous floaters in both eyes 4 Month Follow-Up with David Simpson MD, FACS 04/02/2014 Dry eye syndrome of both eyes 1 Month Follow-Up with Jordyn Simpson MD, FACS 12/06/2013 Dermatochalasis of both eyes NEW PATIENT WITH REFERRAL with David Simpson MD, FACS 11/03/2013 Dry eye syndrome of both eyes NEW PATIENT WITH REFERRA L with David Simpson MD, FACS 11/03/2013 Pinguecula both eyes NEW PATIENT WITH REFERRAL [facility] David Simpson MD, FACS 11/03/2013 Vitreous floaters in both eyes NEW PATIENT WITH REFERR AL with David Gaming MD, FACS 11/03/2013 Instructions Instructions not supported for this document typeNo Instructions Recorded Medical Equipment - Implanted Devices Includes: Current and historical DevicesNo Medical Equipment Recorded Medications Includes: Current and historical Medications Current Medications (continue as prescribed) Aleve 220 MG OR TABS 11/03/2013 Provider: Diagnosis: Artificial Tears 0.4% OP SOLN 11/03/2013 Provider: Diagnosis: one drop five times a day in both eyes Refresh Optive Advanced 0.5-1-0.5% OP SOLN 11/03/2013 Provider: David Simpson MD, FACS Diagnosis: Tear Film Insuffic N OS Past Medications on file Lotemax 0.5% OP GEL 04/02/2014 - 01/31/2016 Provider: David Simpson MD, FACS Diagnosis: Acute Conjunctivitis NOS use for 3 weeks Restasis 0.05% OP EMUL 12/06/2013 - 01/31/2016 Provider: David Simpson MD FACS Diagnosis: Tear Film Insuffic N OS Savings Card given to patient Restasis 0.05% OP EMUL 12/06/2013 - 12/26/2014 Provider: David Simpson MD, FACS Diagnosis: Tear Film Insuffic N OS Cymbalta 60 MG OR CPEP 11/03/2013 - 07/22/2020 Provider: Diagnosis: Alrex 0.2% OP SUSP 11/03/2013 - 12/26/2014 Provider: David Simpson MD, FACS Diagnosis: Tear Film Insuffic N OS Medications Administered Includes: Administered Medications in patient's chartNo Administered Medications Recorded Vital Signs Includes: Vital Signs from 06/16/2020 through 06/16/2021No Vital Signs Recorded For Specified Dates Results Includes: Results from 06/16/2020 through 06/16/2021No Results Recorded For Specified Dates History of Present Illness History of Present Illness not supported for this document typeNo History of Present Illness Recorded Social History Description Last Updated No tobacco use 07/22/2020 Not using drugs 07/22/2020 Smoking status : Former smoker 07/22/2020 Previous smoking history 07/25/2018 Alcohol use 3 drink per week 10/07/2015 Quit smoking 11/03/2013 Procedures and Surgical History Includes: Procedures from 06/16/2020 through 06/16/2021 Procedures Code Diagnosis Performing Provider Service Location Service Date Intermediate Eye Exam Established Patient 08843 Dry eye syndrome of bilateral lacrimal glands, Other secondary cataract, left eye David Simpson MD, MARY Simpson MD [facility] 07/22/2020 Surgical History Last Updated Surgical / procedural history : Tonsille ctomy 1963, Finger Surgery 1966, Tubal Ligation 1972, Ovarian Cysts Removed 1974, Hysterectomy 1987, Shoulder Surgery 1997, Finger Surgery Left Hand 1999 & 2006, Melanoma Removed from Right Cheek - 200801/08/2016 History of cataract surgery PCIOLOU by Dr. Webb 2013 History of closure of the lacrimal punctum by plug of both lower eyelids 11/03/2013 Medical History Includes: Medical History in patient's chart Description Last Updated Essential hypertension 10/15/2017 Reported medical history : Psoriatic Art hritis, Migraines, Mild Sleep Apnea (No CPAP), Essential Tremor, Carpal Tunnel 12/06/2013 No recent change in medical history 12/06/2013 Currently wearing eyeglasses 11/03/2013 History of arthritis 11/03/2013 History of hyperlipidemia 11/03/2013 History of hypertension 11/03/2013 Family History Includes: Family History in patient's chart Description Last Updated Family history of macular degeneration - Grandparent 02/23/2020 Maternal history of family history of cancer 8 Maternal history of hypertension 01/31/2016 Maternal history of stroke/cerebrovascular accident Daughter's history of arthritis 10/07/2015 Daughter's history of family history of cancer 016 Fraternal history of cataract 10/07/2015 Paternal history of glaucoma 10/07/2015 [place] history of family history of cancer 10/07/2015 Fraternal history of arthritis 10/08/2014 Maternal history of heart disease 10/08/2014 Maternal history of thyroid disorder 10/08/2014 Paternal history of blindness 10/08/2014 Paternal history of cataract 10/08/2014 Paternal history of macular degeneration 10/08/2014 Son's history of arthritis 10/08/2014 [place] history of arthritis 10/08/2014 [place] history of diabetes mellitus 10/08/2014 [place] history of heart disease 10/08/2014 [place] history of hypertension 10/08/2014 [place] history of strabismus 10/08/2014 Review of Systems Review of Systems not supported for this document typeNo Review of Systems Recorded Mental Status Mental Status not supported for this document type Description Oriented to time, place, and person Functional Status Functional Status not supported for this document typeNo Functional Status Recorded Physical Exam Physical Exam not supported for this document typeNo Physical Exam Recorded Immunizations Includes: Immunizations in patient's chartNo Immunizations Recorded Allergies Includes: Active, inactive, and resolved Allergies Substance Type Reaction Onset Date - Time Resolved Date - Ti me Status Sulfa Antibiotics Allergy 11/03/2013 - 12:00AM Active IVP Dye Allergy 11/03/2013 - 12:00AM Acti ve Encounters Includes: Encounters from 06/16/2020 through 06/16/2021 Encounter Provider Location Date Check-In Time Check-Out Time D iagnosis TRIAGE NON URGENT David Simpson MD, FACS David Sipmson MD [facility] 07/22/2020 2:43PM 4:41PM Dry Eye Syndrome Bot h Eyes, Retinopathy Hypertensive Both Eyes, History of Nicotine Dependence, Essential Hypertension, Posterior Capsule Opacification Eccentric Capsule Left Eye Insurance Includes: Active Insurance Policies Plan Name Member ID Group # Subscriber Relationship Effective Da dianna 1 - [employer]AUTH NEEDED!!!!!! [id number] Ary Navarrete Self Advance Directives Includes: Current Advance DirectivesNo Advance Directives Recorded Health Concerns Includes: Active Health ConcernsNo Active Health Concerns Recorded Goals Includes: Active GoalsNo Active Goals Recorded Interventions Includes: Interventions for active GoalsNo Interventions Recorded Evaluations & Outcomes Includes: Evaluations & Outcomes for active GoalsNo Outcomes Recorded
--- OUTSIDE RECORDS SUMMARY | 2021-08-28 12:25 | CCD | Continuity of Care Document ---
Author Ary Braden PA-C Organization Unknown Address [address] [place] [address] Phone [phone] Care Team Providers Care Unpaid Intern Name Role Phone Denny Augustin [facility] AUTM [phone] Problems Active Problems Provider Date Malignant melanoma [...] H/L Range Note Complete Blood Count 05/07/2021 [facility] entr [address] [place] [address] (315)- - White Blood Count 11.3 10 [...] % Normal 0-0 Laboratory test finding 05/07/2021 [facility] [address] [place] [address] (315)- - Uric Acid 5.6 mg/dL Normal 2.6-6.0 Rheumatoid Factor Quant < 10.0 IU/mL Normal <15.0 Antinuclear Antibodies 05/07/2021 [facility] [address] [place] [address] (315)- - Antinuclear Antibodies Direct Positive Abnormal Negati ve Anti Double Strand-Dna AB 14 IU/mL High 0-9 1 ASSOCIATE ATTORNEY Antibodies 0.6 AI Normal 0.0-0.9 Way Antibodies <0.2 AI Normal 0.0-0.9 Sjogren's Anti SS-A <0.2 AI Normal 0.0-0.9 Sjogren's Anti SS-B <0.2 AI Normal 0.0-0.9 Alan Comment (SEE NOTE) Normal . 2 Laboratory test finding 05/07/2021 [facility] [address] [place] [address] (240)- - Erythrocyte Sedimentation Rate 37 mm/hr High 0-30 Hla-B27 Negative Normal . 3 C Reactive Protein Quantitativ 1.16 mg/dL High 0.00-0.30 Lyme Disease SCRN With Confirm 05/07/2021 [facility] [address] [place] [address] (433)- - Lyme Disease IgG/IgM Antibodie <0.91 ISR [...] (anti-Way) SLE 15 - 30% ------- --------- ASSOCIATE ATTORNEY Mixed Connective Tissue Disease 95% (U1 nRNP, SLE 30 - 50% anti-ribonucleoprotein) Polymyositis and/or Dermatomyositis 20% -------- --------- Scl-70 (antiDNA Scleroderma (diffuse) 20 - 35% topoisomerase) Crest 13% -------- --------- Leigh-1 Polymyositis and/or Dermatomyositis 20 - 40% -------- --------- Centromere B Scleroderma - Crest variant 80% Performed at: RN - [facility] [address] [id number] Sweet Pickle Maker: Breana Lacy MD, Phone: [phone] Performed at: 2Q - [facility] [address] [place] [id number] Sweet Pickle Maker: Moe Maravilla PhD, Phone: [phone] HLA-B*27 Negative B27 allele interpretation for all loci based on IMGT/HLA database version 3.44 This test was developed and its performance characteristics determined by [employer]. It has not been cleared or approved by the Food and Drug Administration. [facility] CLIA ID Number [id number] . This test was performed using PCR [...] decline. Procedures Date Code Description Status 06/20/2021 43663 Office/Outpatient Established Mo d MDM 30-39 Min Completed 06/20/202124387 Inject/Drain Joint/Bursa Major C ompleted 05/07/2021 10506 Office/Outpatient Established Mo d MDM 30-39 Min Completed 05/07/2021 08830 X-Ray Knee Complete W/Obliques & Tunnel And/Or Standing Views Completed 05/07/2021 86487 X-Ray Spine Lumbosacral Complete Inc Bending Views Min Of 6 Completed 03/27/2021 51074 Office/Outpatient Established Mo d MDM 30-39 Min Completed 03/27/202119596 Inject/Drain Joint/Bursa Major C ompleted 01/09/2021 31671 Office/Outpatient Established Lo w MDM 20-29 Min Completed 01/09/202109977 Inject/Drain Joint/Bursa Major C ompleted 01/01/202107567 Inject/Drain Joint/Bursa Major C ompleted 12/25/2020 64908 Office/Outpatient Established Lo w MDM 20-29 Min Completed 12/25/202045741 Inject/Drain Joint/Bursa Major C ompleted Medical Devices Description No Information Available Encounters Type Date Location Provider Dx Diagnosis Office Visit 06/20/2021 11:15a Sandi Beal PA-C M17.0 Bilateral primary osteoarthritis of knee M48.061 Spinal stenosis, lumbar hetal on without neurogenic antolin M47.897 Other spondylosis, lumbosacr al region M51.37 Other intervertebral disc de generation, lumbosacral region M43.17 Spondylolisthesis, lumbosacr al region Office Visit 05/07/2021 11:00a [place] Nori L. Emigdio PA-C M17.12 Unilateral primary osteoarthritis, left knee M47.897 Other spondylosis, lumbosacr al region M51.37 Other intervertebral disc de generation, lumbosacral region M43.17 Spondylolisthesis, lumbosacr al region L40.50 Arthropathic psoriasis, unsp ecified Office Visit 03/27/2021 11:15a [place] Nori L. Emigdio PA-C M17.12 Unilateral primary osteoarthritis, left knee Office Visit 01/09/2021 2:00p [place] Nori L. Emigdio PA-C M17.0 Bilateral primary osteoarthritis of knee Office Visit 12/25/2020 1:00p [place] Nori L. Emigdio PAMarkoC Z47.89 Encounter for [...] 9:30 am - Nori RoderickBARBARA Valladares-C at [place] * 07/24/2021 9:30 am - Nori Bubba Emigdio PA-C at [place] * 07/17/2021 9:30 am - Nori Bubba Emigdio PA-C at [place] 06/20/2021 - Nori Mac Emigdio PA-C* M17.0 Bilateral primary osteoarthritis [...] 05/15/21 Euflexxa Left Knee a pproved auth [id number], from 05/13/21 to 11/15/21,passed to schedulers sw. CAN NOT HAVE INJECTION UNTIL 07/12/21. Created [address] [place] [address] [phone] Nori Beal PA-C REFERRAL NO AUTH REQUIRED FO R REFERRAL TO [facility] TO SALES AND MARKETING ENGINEER. SHANTHI Created [address] [place] [address] [phone] Nori Beal PA-C MRI APPROVED PER [employer] FOR MRI OF LUMBAR SPINE (26240) TO MINOO MAKI Created [address] [address] [phone] Nori Beal PA-C Right knee Euflexxa approved. Passing to scheduling. Created [facility] [address] [address] [phone]
--- OUTSIDE RECORDS SUMMARY | 2021-08-28 12:25 | CCD | Continuity of Care Document ---
Author Author Ary AUGUSTIN [facility] Organization Unknown Address [address] [address] Phone [phone] Care Team Providers Care Casino Banker Name Role Phone Lenin Swann M.D. AUTM [phone] Problems Active Problems Provider Date Asthma without [...] once a week 10tabs [facility] 06/09/2021 Nystatin 10Bu Powder apply three times a day under breasts/abdominal fold as needed 2units Brian Beal D.O., [facility] 06/09/2021 Cholestyramine Light 4gm Packet 1 packet with 8 ounces of water every day 30units Brian [facility] 04/02/2020 Loperamide HCL 2mg Capsules 2 by mouth stat followed by 1 by mouth every each loose stool x max of 8/day. 30caps Brian Beal D.O., [facility] 04/02/2020 Vitamin D-1000 Maximum Strength 1000Unit Tablets 2 by mouth every day 90tabs Aneudy Santacruz, [facility] 01/29/[address] Part 1 by mouth twice a day 180caps Brian [facility] 01/2014 Losartan Potassium 50mg Tablets 1 [...] 1/2 po qd 42tabs Brian Beal D.O., [facility] - 06/09/2021 Fexofenadine HCL 180mg Tablets 1 by mouth every day 14tabs Brian Beal D.O., [facility] - 02/17/2021 Prednisone 10mg Tablets 2 po tid x 3 days, then 1 po tid x 3 days, then 1 po bid x 3 days, then 1 po qd x 3 days, then 1/2 po qd 42tabs Brian Beal D.O., [facility] - 04/18/2021 Medications Administered in Office Medication SIG Qnty Indications Ordering Provider Date Injection (SC)/(Im) Injection Denny Augustin, [facility] 04/21/2021 Injection (SC)/(Im) Injection Nurses Schedule 06/07/2019 Injection (SC)/(Im) Injection Denny Augustin, [facility] 08/24/2017 Injection (SC)/(Im) Injection Denny Augustin, [facility] 07/05/2012 Injection (SC)/(Im) Injection Denny Augustin, [facility] 06/30/2011 Injection (SC)/(Im) Injection Denny Augustin, [facility] 10/13/2010 Injection (SC)/(Im) Injection Denny Augustin, [facility] 07/16/2010 Injection (SC)/(Im) Injection Gabe Potter M.D. 07/03/2009 Injection Subcutaneous Or Intramuscular Injection Gabe Potter M.D. 2007 Injection Subcutaneous Or Intramuscular Injection Shlomo Naranjo 8 Injection Subcutaneous Or Intramuscular Injection Shlomo Naranjo 8 Injection Subcutaneous Or Intramuscular Injection Gabe Potter M.D. 2006 Immunizations CPT Code Status Date Vaccine Lot # [id number] Given 06/09/2021 Influenza Virus Vaccine, Quadrivalent, Slit Virus, Im Use 3Y & Up [id number] 31994 Given 07/10/2020 Influenza Virus Vaccine, Quadrivalent, Slit Virus, Im Use 3Y & Up [id number] 58131 Given 06/07/2019 Influenza Virus Vaccine, Quadrivalent, Slit Virus, Im Use 3Y & Up [id number] 38639 Given 07/07/2018 Influenza Virus Vaccine, Quadrivalent, Slit Virus, Im Use 3Y & Up [id number] 35592 Given 07/17/2015 Influenza Vaccin e (Fluzone) 3Yrs Of Age Or Older Medicare Plans [id number] 74629 Given 07/17/2015 Pneumococcal Immunization [id number] 71959 Given 10/11/2013 Influenza Vaccin e (Fluzone) 3Yrs Of Age Or Older Medicare Plans 20526 Given 10/11/2013 Influenza Virus Vac. Split Virus Individuals 3 Years And Above [id number] 96961 Given 07/05/2012 Influenza Virus Vac. Split Virus Individuals 3 Years And Above [id number] 07586 Given 06/30/2011 Influenza Virus Vac. Split Virus Individuals 3 Years And Above [id number] 29160 Given 07/16/2010 Influenza Virus Vac. Split Virus Individuals 3 Years And Above [id number] 79341 Given 07/03/2009 Influenza Virus Vac. Split Virus Individuals 3 Years And Above [id number] 44384 Given 07/10/2008 Influenza Virus Vac. Split Virus Individuals 3 Years And Above [id number] 80628 Given 10/11/2007 PPD Tuberculosis Intradermal 78515 Given 07/15/2007 Influenza Virus Vac. Split Virus Individuals 3 Years And Above Vital Signs Date Vital Result Comment 06/09/2021 3:15pm BP Systolic 116 mmHg BP Diastolic 80 mmHg Body Temperature 97.3 F Heart Rate 97 /min Respiratory Rate 16 /min Height 66 inches 5'6" Weight 215.00 lb [place] Body Weight 130 lb BMI (Body Mass Index) 34.7 kg/m2 O2 % BldC Oximetry 95 % 04/22/2021 9:20am BP Systolic 110 mmHg BP Diastolic 50 mmHg Body Temperature 97.2 F Heart Rate 114 /min Respiratory Rate 24 /min Height 66 inches 5'6" Weight 218.00 lb [place] Body Weight 130 lb BMI (Body Mass [...] eGFR 58 # Calc 3 eGFR Non-Afr. [place] 50 # Calc 4 Lipid Panel 02/07/2021 FPA/Inhouse Chol 197 mg/dL 0 - 200 Trig 93 mg/dL 40 - 200 HDL 52 mg/dL 45 - 65 LDL_C 127 Calc 75 - 129 Cho/HDL Ratio 3.8 CALC 1 Vitamin D deficiency has bee n defined by the [place] of [employer] and an Endocrine Society practice guideline as a level of serum 25-OH vitamin D less than 20 ng/mL (1,2). The Endocrine Society went on to further define vitamin D insufficiency as a level between 21 and 29 ng/mL (2). 1. IOM ([place] of Medicine). 2010. Di etary reference intakes for calcium and D. [place]: The National AcademPeoplefilter Technology Press. 2. Murali MF, Ranjit MURPHY, Marisela hill LIN, et al. Evaluation, [...] HCT IS 5% LESS SOURCE FOR DATA: [employer] 1800 OPERATION MANUAL( AUTOMATED BLOOD COUNTS AND [...] CKD-EPI Procedures Date Code Description Status 06/09/2021 71411 Office/Outpatient Established Mo d MDM 30-39 Min Completed 04/22/2021 60505 Office/Outpatient Established Lo w MDM 20-29 Min Completed 04/21/2021 09715 Office/Outpatient Established Lo w MDM 20-29 Min Completed 04/21/2021 87144 Injection (SC)/(Im) Completed 04/18/2021 45058 Office/Outpatient Established Lo w MDM 20-29 Min Completed 02/07/2021 64966 Office/Outpatient Established Mo d MDM 30-39 Min Completed Medical Devices Description No Information Available Encounters Type Date Location Provider Dx Diagnosis Office Visit 06/09/2021 1:00p [place] [facility] Denny Augustin, RP A I10 Essential (primary) hypertension E78.5 Hyperlipidemia, unspecified M54.5 Low back pain B35.4 Tinea corporis Z23 Encounter for immunization Office Visit 04/22/2021 9:45a [place] [facility] Denny Augustin, RP A J20.9 Acute bronchitis, unspecified Office Visit 04/21/2021 10:40a [place] [facility] Denny Augustin, RP A J20.9 Acute bronchitis, unspecified Office Visit 04/18/2021 1:45p [place] [facility] Denny Augustin, RP A J44.1 Chronic obstructive pulmonary disease w (acute) exacerbation Office Visit 02/07/2021 10:20a [place] Office Denny Augustin, RP A I10 [...] [place], RPA 04/21/2021 J20.9 Acute bronchitis, unspecified Hi Denny aleman, RPA 04/18/2021 J44.1 Chronic obstructive pulmonary disease with (acute) exacerbation Denny Augustin, RPA 02/07/2021 I10 Essential (primary) hypertension Denny Augustin, RPA 02/07/2021 E78.5 Hyperlipidemia, unspecified Denny Pantoja, RPA 02/07/2021 M54.5 Low back pain Denny Augustin, RPA 02/07/2021 G47.9 Sleep disorder, unspecified Denny Pantoja, RPA 02/07/2021 J45.909 Unspecified asthma, uncomplicate d Denny Augustin, RPA 02/07/2021 R21 Rash and other nonspecific skin eruption Denny Augustin, [facility] Plan of Treatment No Information Available Functional Status Description No Information Available Mental Status Description No Information Available Referrals Refer to Dr Reason for Referral Status Appt Date Jacob Jacobs M.D. 10 yr f/u colonoscopy Sent 07/14 [address] [facility], [address] [place] [address] [phone] [facility] Annual exam Sent 0 [address] [place] [address] [phone]
--- OUTSIDE RECORDS SUMMARY | 2021-08-28 12:26 | CCD ---
Author Author [facility] Organization [facility] Address Unknown Phone Unavailable Care Team Providers Care Senior Internet Sales Consultant Name Role Phone Chavo, L Maritza AUTOMATIC PAINT SPRAYER OPERATOR Unavailable Unavailable Chavo, L Maritza AUTOMATIC PAINT SPRAYER OPERATOR Unavailable Unavailable Chavo, L Maritza AUTOMATIC PAINT SPRAYER OPERATOR Unavailable Unavailable Chavo, L Maritza AUTOMATIC PAINT SPRAYER OPERATOR Unavailable Unavailable Chavo, L Maritza AUTOMATIC PAINT SPRAYER OPERATOR Unavailable Unavailable Chavo, L Maritza AUTOMATIC PAINT SPRAYER OPERATOR Unavailable Unavailable Chavo, L Maritza AUTOMATIC PAINT SPRAYER OPERATOR Unavailable Unavailable Chavo, L Maritza AUTOMATIC PAINT SPRAYER OPERATOR Unavailable Unavailable Chavo, L Maritza AUTOMATIC PAINT SPRAYER OPERATOR Unavailable Unavailable Chavo, L Maritza AUTOMATIC PAINT SPRAYER OPERATOR Unavailable Unavailable Chavo, L Maritza AUTOMATIC PAINT SPRAYER OPERATOR Unavailable Unavailable Chavo, L Maritza AUTOMATIC PAINT SPRAYER OPERATOR Unavailable Unavailable Chavo, L Maritza AUTOMATIC PAINT SPRAYER OPERATOR Unavailable Unavailable Chavo, L Maritza AUTOMATIC PAINT SPRAYER OPERATOR Unavailable Unavailable Chavo, L Maritza AUTOMATIC PAINT SPRAYER OPERATOR Unavailable Unavailable Chavo, L Maritza AUTOMATIC PAINT SPRAYER OPERATOR Unavailable Unavailable Chavo, L Maritza AUTOMATIC PAINT SPRAYER OPERATOR Unavailable Unavailable Chavo, L Maritza AUTOMATIC PAINT SPRAYER OPERATOR Unavailable Unavailable Chavo, L Maritza AUTOMATIC PAINT SPRAYER OPERATOR Unavailable Unavailable Chavo, L Maritza AUTOMATIC PAINT SPRAYER OPERATOR Unavailable Unavailable Chavo, L Maritza AUTOMATIC PAINT SPRAYER OPERATOR Unavailable Unavailable Cahvo, L Maritza AUTOMATIC PAINT SPRAYER OPERATOR Unavailable Unavailable Chavo, L Maritza AUTOMATIC PAINT SPRAYER OPERATOR Unavailable Unavailable Chavo, L Maritza AUTOMATIC PAINT SPRAYER OPERATOR Unavailable Unavailable Chavo, L Maritza AUTOMATIC PAINT SPRAYER OPERATOR Unavailable Unavailable Linda Beal, PA-C Unavailable Unavailabl e Linda Beal, PA-C Unavailable Unavailabl e Linda Beal, PA-C Unavailable Unavailabl e Linda Beal, PA-C Unavailable Unavailabl e Linda Beal, PA-C Unavailable Unavailabl e Fish, [facility], PA-C Unavailable Unavailabl e Fish, [facility], PA-C Unavailable Unavailabl e Fish, [facility], PA-C Unavailable Unavailabl e Fish, [facility], PA-C Unavailable Unavailabl e Fish, [facility], PA-C Unavailable Unavailabl e Fish, [facility], PA-C Unavailable Unavailabl e Fish, [facility], PA-C Unavailable Unavailabl e Fish, [facility], PA-C Unavailable Unavailabl e Fish, [facility], PA-C Unavailable Unavailabl e Fish, [facility], PA-C Unavailable Unavailabl e Fish, [facility], PA-C Unavailable Unavailabl e Fish, [facility], PA-C Unavailable Unavailabl e Fish, [facility], PA-C Unavailable Unavailabl e Fish, [facility], PA-C Unavailable Unavailabl e Fish, [facility], PA-C Unavailable Unavailabl e Fish, [facility], PA-C Unavailable Unavailabl e Fish, [facility], PA-C Unavailable Unavailabl e Fish, [facility], PA-C Unavailable Unavailabl e Fish, [facility], PA-C Unavailable Unavailabl e Fish, [facility], PA-C Unavailable Unavailabl e Fish, [facility], PA-C Unavailable Unavailabl e Fish, [facility], PA-C Unavailable Unavailabl e Fish, [facility], PA-C Unavailable Unavailabl e Fish, [facility], PA-C Unavailable Unavailabl e Fish, [facility], PA-C Unavailable Unavailabl e Fish, [facility], PA-C Unavailable Unavailabl e Fish, [facility], PA-C Unavailable Unavailabl e Fish, [facility], PA-C Unavailable Unavailabl e Fish, [facility], PA-C Unavailable Unavailabl e Fish, [facility], PA-C Unavailable Unavailabl e Fish, [facility], PA-C Unavailable Unavailabl e Charli, D Denny PA Unavailable Unavailable Charli, D Denny PA Unavailable Unavailable Charli, D Denny PA Unavailable Unavailable Charli, D Denny PA Unavailable Unavailable Charli, D Denny PA Unavailable Unavailable Charli, D Denny PA Unavailable Unavailable Charli, D Denny PA Unavailable Unavailable Charli, D Denny PA Unavailable Unavailable Charli, D Denny PA Unavailable Unavailable Charli, D Denny PA Unavailable Unavailable Charli, D Denny PA Unavailable Unavailable Charli, D Denny PA Unavailable Unavailable Charli, D Denny PA Unavailable Unavailable Charli, D Denny PA Unavailable Unavailable Charli, D Denny PA Unavailable Unavailable Charli, D Denny PA Unavailable Unavailable Charli, D Denny PA Unavailable Unavailable Charli, D Denny PA Unavailable Unavailable Charli, D Denny PA Unavailable Unavailable Charli, D Denny PA Unavailable Unavailable Charli, D Denny PA Unavailable Unavailable Charli, D Denny PA Unavailable Unavailable Charli, D Denny PA Unavailable Unavailable Charli, D Denny PA Unavailable Unavailable Charli, D Denny PA Unavailable Unavailable Charli, D Denny PA Unavailable Unavailable Charli, D Denny PA Unavailable Unavailable Charli, D Denny PA Unavailable Unavailable Charli, D Denny PA Unavailable Unavailable Charli, D Denny PA Unavailable Unavailable Charli, D Denny PA Unavailable Unavailable Charli, D Denny PA Unavailable Unavailable Charli, D Denny PA Unavailable Unavailable Charli, D Denny PA Unavailable Unavailable Charli, D Denny PA Unavailable Unavailable Charli, D Denny PA Unavailable Unavailable Charli, D Denny PA Unavailable Unavailable Charli, D Denny PA Unavailable Unavailable Charli, D Denny PA Unavailable Unavailable Charli, D Denny PA Unavailable Unavailable Charli, D Denny PA Unavailable Unavailable Charli, D Denny PA Unavailable Unavailable Charli, D Denny PA Unavailable Unavailable Charli, D Denny PA Unavailable Unavailable Charli, D Denny PA Unavailable Unavailable Charli, D Denny PA Unavailable Unavailable Charli, D Denny PA Unavailable Unavailable Charli, D Denny PA Unavailable Unavailable Charli, D Denny PA Unavailable Unavailable Charli, D Denny PA Unavailable Unavailable Charli, D Denny PA Unavailable Unavailable Charli, D Denny PA Unavailable Unavailable Charli, D Denny PA Unavailable Unavailable Charli, D Denny PA Unavailable Unavailable Charli, D Denny PA Unavailable Unavailable Charli, D Denny PA Unavailable Unavailable Charli, D Denny PA Unavailable Unavailable Charli, D Denny PA Unavailable Unavailable Charli, D Denny PA Unavailable Unavailable Charli, D Denny PA Unavailable Unavailable Charli, D Denny PA Unavailable Unavailable Charli, D Denny PA Unavailable Unavailable Charli, D Denny PA Unavailable Unavailable Charli, D Denny PA Unavailable Unavailable Charli, D Denny PA Unavailable Unavailable Charli, D Denny PA Unavailable Unavailable Charli, D Denny PA Unavailable Unavailable Charli, D Denny PA Unavailable Unavailable Charli, D Denny PA Unavailable Unavailable Charli, D Denny PA Unavailable Unavailable Charli, D Denny PA Unavailable Unavailable Charli, D Denny PA Unavailable Unavailable Charli, D Denny PA Unavailable Unavailable Charli, D Denny PA Unavailable Unavailable Charli, D Denny PA Unavailable Unavailable Charli, D Denny PA Unavailable Unavailable Charli, D Denny PA Unavailable Unavailable Charli, D Denny PA Unavailable Unavailable Charli, D Denny PA Unavailable Unavailable Charli, D Denny PA Unavailable Unavailable Charli, D Denny PA Unavailable Unavailable Charli, D Denny PA Unavailable Unavailable Charli, D Denny PA Unavailable Unavailable Charli, D Denny PA Unavailable Unavailable Charli, D Denny PA Unavailable Unavailable Charli, D Denny PA Unavailable Unavailable Charli, D Denny PA Unavailable Unavailable Charli, D Denny PA Unavailable Unavailable Charli, D Denny PA Unavailable Unavailable Charli, D Denny PA Unavailable Unavailable Charli, D Denny PA Unavailable Unavailable Charli, D Denny PA Unavailable Unavailable Charli, D Denny PA Unavailable Unavailable Charli, D Denny PA Unavailable Unavailable Charli, D Denny PA Unavailable Unavailable Charli, D Denny PA Unavailable Unavailable Charli, D Denny PA Unavailable Unavailable Charli, D Denny PA Unavailable Unavailable Charli, D Denny PA Unavailable Unavailable Charli, D Denny PA Unavailable Unavailable Charli, D Denny PA Unavailable Unavailable Charli, D Denny PA Unavailable Unavailable Charli, D Denny PA Unavailable Unavailable Charli, D Denny PA Unavailable Unavailable Charli, D Denny PA Unavailable Unavailable Charli, D Denny PA Unavailable Unavailable Charli, D Denny PA Unavailable Unavailable Charli, D Denny PA Unavailable Unavailable Charli, D Denny PA Unavailable Unavailable Charli, D Denny PA Unavailable Unavailable Charli, D Denny PA Unavailable Unavailable Charli, D Denny PA Unavailable Unavailable Charli, D Denny PA Unavailable Unavailable Charli, D Denny PA Unavailable Unavailable Charli, D Denny PA Unavailable Unavailable Charli, D Denny PA Unavailable Unavailable Charli, D Denny PA Unavailable Unavailable Charli, D Denny PA Unavailable Unavailable Charli, D Denny PA Unavailable Unavailable Charli, D Denny PA Unavailable Unavailable Charli, D Denny PA Unavailable Unavailable Charli, D Denny PA Unavailable Unavailable Charli, D Denny PA Unavailable Unavailable Charli, D Denny PA Unavailable Unavailable Charli, D Denny PA Unavailable Unavailable Charli, D Denny PA Unavailable Unavailable Charli, D Denny PA Unavailable Unavailable Charli, D Denny PA Unavailable Unavailable Charli, D Denny PA Unavailable Unavailable Charli, D Denny PA Unavailable Unavailable Charli, D Denny PA Unavailable Unavailable Charli, D Denny PA Unavailable Unavailable Charli, D Denny PA Unavailable Unavailable Charli, D Denny PA Unavailable Unavailable Charli, D Denny PA Unavailable Unavailable Charli, D Denny PA Unavailable Unavailable Ken Gaming, Munira Hernandez MD, FACS Unavailable Unavailable Ken Gaming, Munira Hernandez MD, FACS Unavailable Unavailable Ken Gaming, Munira Hernandez MD, FACS Unavailable Unavailable Ken [employer], Munira Hernandez MD, FACS Unavailable Unavailable Ken Gaming, Munira Hernandez MD, FACS Unavailable Unavailable Ken Gaming, Munira Hernandez MD, FACS Unavailable Unavailable Ken Gaming, Munira Hernandez MD, FACS Unavailable Unavailable Ken Gaming, Munira Hernandez MD, FACS Unavailable Unavailable Ken Gaming, Munira Hernandez MD, FACS Unavailable Unavailable Ken Gaming, Munira Hernandez MD, FACS Unavailable Unavailable Ken Gaming, Munira Hernandez MD, FACS Unavailable Unavailable Ken Gaming, Munira Hernandez MD, FACS Unavailable Unavailable Ken Gaming, Munira Hernandez MD, FACS Unavailable Unavailable Ken Gaming, Munira Hernandez MD, FACS Unavailable Unavailable Ken Gaming, Munira Hernandez MD, FACS Unavailable Unavailable Ken Gaming, Munira Hernandez MD, FACS Unavailable Unavailable Ken Gaming, Munira Hernandez MD, FACS Unavailable Unavailable Ken Gaming, Munira Hernandez MD, FACS Unavailable Unavailable Ken Gaming, Munira Hernandez MD, FACS Unavailable Unavailable Ken Gaming, Munira Hernandez MD, FACS Unavailable Unavailable Ken Gaming, Munira Hernandez MD, FACS Unavailable Unavailable Ken Gaming, Munira Hernandez MD, FACS Unavailable Unavailable Ken Gaming, Munira Hernandez MD, FACS Unavailable Unavailable Ken Gaming, Munira Hernandez MD, FACS Unavailable Unavailable Ken Gaming, Munira Hernandez MD, FACS Unavailable Unavailable Ken Gaming, Munira Hernandez MD, FACS Unavailable Unavailable Ken Gaming, Munira Hernandez MD, FACS Unavailable Unavailable Ken Gaming, Munira Hernandez MD, FACS Unavailable Unavailable Ken Gaming, Munira Hernandez MD, FACS Unavailable Unavailable Ken Gaming, Munira Hernandez MD, FACS Unavailable Unavailable Ken Gaming, Munira Hernandez MD, FACS Unavailable Unavailable Ken Gaming, Munira Hernandez MD, FACS Unavailable Unavailable Ken Gaming, Munira Hernandez MD, FACS Unavailable Unavailable Ken Gaming, Munira Hernandez MD, FACS Unavailable Unavailable Ken Gaming, Munira Hernandez MD, FACS Unavailable Unavailable Ken Gaming, Munira Hernandez MD, FACS Unavailable Unavailable Ken Gaming, Munira Hernandez MD, FACS Unavailable Unavailable Ken [employer], Munira Hernandez MD, FACS Unavailable Unavailable Ken Gaming, Munira Hernandez MD, FACS Unavailable Unavailable Perez, L Vee RPA Unavailable Unavailable Perez, L Vee RPA Unavailable Unavailable Perez, L Vee RPA Unavailable Unavailable Perez, L Vee RPA Unavailable Unavailable Perez, L Vee RPA Unavailable Unavailable Perez, L Vee RPA Unavailable Unavailable Perez, L Vee RPA Unavailable Unavailable Perez, L Vee RPA Unavailable Unavailable Perez, L Vee RPA Unavailable Unavailable Perez, L Vee RPA Unavailable Unavailable Perez, L Vee RPA Unavailable Unavailable Perez, L Vee RPA Unavailable Unavailable Perez, L Vee RPA Unavailable Unavailable Perez, L Vee RPA Unavailable Unavailable Perez, L Vee RPA Unavailable Unavailable Perez, L Vee RPA Unavailable Unavailable Perez, L Vee RPA Unavailable Unavailable Perez, L Vee RPA Unavailable Unavailable Perez, L Vee RPA Unavailable Unavailable Perez, L Vee RPA Unavailable Unavailable Perez, L Vee RPA Unavailable Unavailable Perez, L Vee RPA Unavailable Unavailable Perez, L Vee RPA Unavailable Unavailable Perez, L Vee RPA Unavailable Unavailable Perez, L Vee RPA Unavailable Unavailable Perez, L Vee RPA Unavailable Unavailable Perez, L Vee RPA Unavailable Unavailable Perez, L Vee RPA Unavailable Unavailable Perez, L Eve RPA Unavailable Unavailable Perez, L Vee RPA Unavailable Unavailable Perez, L Vee RPA Unavailable Unavailable Perez, L Vee RPA Unavailable Unavailable Suzanne, N Yoseph AUTOMATIC PAINT SPRAYER OPERATOR Unavailable Unavailable Suzanne, N Yoseph AUTOMATIC PAINT SPRAYER OPERATOR Unavailable Unavailable Suzanne, N Yoseph AUTOMATIC PAINT SPRAYER OPERATOR Unavailable Unavailable Hugo, N Yoseph AUTOMATIC PAINT SPRAYER OPERATOR Unavailable Unavailable Suzanne, N Yoseph AUTOMATIC PAINT SPRAYER OPERATOR Unavailable Unavailable Suzanne, N Yoseph AUTOMATIC PAINT SPRAYER OPERATOR Unavailable Unavailable Hugo, N Yoseph AUTOMATIC PAINT SPRAYER OPERATOR Unavailable Unavailable Suzanne, N Yoseph AUTOMATIC PAINT SPRAYER OPERATOR Unavailable Unavailable Hugo, N Yoseph AUTOMATIC PAINT SPRAYER OPERATOR Unavailable Unavailable Hugo, N Yoseph AUTOMATIC PAINT SPRAYER OPERATOR Unavailable Unavailable Suzanne, N Yoseph AUTOMATIC PAINT SPRAYER OPERATOR Unavailable Unavailable Suzanne, N Yoseph AUTOMATIC PAINT SPRAYER OPERATOR Unavailable Unavailable Suzanne, N Yoseph AUTOMATIC PAINT SPRAYER OPERATOR Unavailable Unavailable Suzanne, N Yoseph AUTOMATIC PAINT SPRAYER OPERATOR Unavailable Unavailable Suzanne, N Yoseph AUTOMATIC PAINT SPRAYER OPERATOR Unavailable Unavailable Hugo, N Yoseph AUTOMATIC PAINT SPRAYER OPERATOR Unavailable Unavailable Hugo, N Yoseph AUTOMATIC PAINT SPRAYER OPERATOR Unavailable Unavailable Hugo, N Yoseph AUTOMATIC PAINT SPRAYER OPERATOR Unavailable Unavailable Hugo, N Yoseph AUTOMATIC PAINT SPRAYER OPERATOR Unavailable Unavailable Suzanne, N Yoseph AUTOMATIC PAINT SPRAYER OPERATOR Unavailable Unavailable Suzanne, N Yoseph AUTOMATIC PAINT SPRAYER OPERATOR Unavailable Unavailable Suzanne, N Yoseph AUTOMATIC PAINT SPRAYER OPERATOR Unavailable Unavailable Hugo, N Yoseph AUTOMATIC PAINT SPRAYER OPERATOR Unavailable Unavailable Hugo, N Yoseph AUTOMATIC PAINT SPRAYER OPERATOR Unavailable Unavailable Hugo, N Yoseph AUTOMATIC PAINT SPRAYER OPERATOR Unavailable Unavailable Hugo, N Yoseph AUTOMATIC PAINT SPRAYER OPERATOR Unavailable Unavailable Suzanne, N Yoseph AUTOMATIC PAINT SPRAYER OPERATOR Unavailable Unavailable Suzanne, N Yoseph AUTOMATIC PAINT SPRAYER OPERATOR Unavailable Unavailable Suzanne, N Yoseph AUTOMATIC PAINT SPRAYER OPERATOR Unavailable Unavailable Suzanne, N Yoseph AUTOMATIC PAINT SPRAYER OPERATOR Unavailable Unavailable Hugo, N Yoseph AUTOMATIC PAINT SPRAYER OPERATOR Unavailable Unavailable Hugo, N Yoseph AUTOMATIC PAINT SPRAYER OPERATOR Unavailable Unavailable Suzanne, N Yoseph AUTOMATIC PAINT SPRAYER OPERATOR Unavailable Unavailable Lemont, V KUSHAL PA-C Unavailable Unavailable Lemont, V KUSHAL PA-C Unavailable Unavailable Lemont, V KUSHAL PA-C Unavailable Unavailable Lemont, V KUSHAL PA-C Unavailable Unavailable Lemont, V KUSHAL PA-C Unavailable Unavailable Lemont, V KUSHAL PA-C Unavailable Unavailable Lemont, V KUSHAL PA-C Unavailable Unavailable Lemont, V KUSHAL PA-C Unavailable Unavailable Lemont, V KUSHAL PA-C Unavailable Unavailable Lemont, V KUSHAL PA-C Unavailable Unavailable Lemont, V KUSHAL PA-C Unavailable Unavailable Uriah, V KUSHAL PA-C Unavailable Unavailable Uriah, V KUSHAL PA-C Unavailable Unavailable Uriah, V KUSHAL PA-C Unavailable Unavailable Jordyn Santamaria MD Unavailable Unavailable Jordyn Santamaria MD Unavailable Unavailable Jordyn Santamaria MD Unavailable Unavailable Jordyn Santamaria MD Unavailable Unavailable Jordyn Santamaria MD Unavailable Unavailable Jordyn Santamaria MD Unavailable Unavailable Jordyn Santamaria MD Unavailable Unavailable Jordyn Santamaria MD Unavailable Unavailable Jordyn Santamaria MD Unavailable Unavailable Jordyn Santamaria MD Unavailable Unavailable Jordyn Santamaria MD Unavailable Unavailable Jordyn Santamaria MD Unavailable Unavailable Jordyn Santamaria MD Unavailable Unavailable Jordyn Santamaria MD Unavailable Unavailable Jordyn Santamaria MD Unavailable Unavailable Vaneenenaam, Jordyn Garcia MD Unavailable Unavailable Vaneenenaam, Jordyn Garcia MD Unavailable Unavailable Vaneenenaam, Jordyn Garcia MD Unavailable Unavailable Vaneenenaam, Jordyn Garcia MD Unavailable Unavailable Vaneenenaam, Jordyn Garcia MD Unavailable Unavailable Vaneenenaam, Jordyn Garcia MD Unavailable Unavailable Vaneenenaam, Jordyn Garcia MD Unavailable Unavailable Vaneenyelitzaam, Jordyn Garcia MD Unavailable Unavailable Vaneenyelitzaam, Jordyn Garcia MD Unavailable Unavailable Vaneenenaam, Jordyn Garcia MD Unavailable Unavailable Vaneenenaam, Jordyn Garcia MD Unavailable Unavailable Vaneenenaam, Jordyn Garcia MD Unavailable Unavailable Vaneenenaam, Jordyn Garcia MD Unavailable Unavailable Vaneencali, Jordyn Garcia MD Unavailable Unavailable Vaneenyelitzaam, Jordyn Garcia MD Unavailable Unavailable Vaneenyelitzaam, Jordyn Garcia MD Unavailable Unavailable Vaneenyelitzaam, Jordyn Garcia MD Unavailable Unavailable Vaneenyelitzaam, Jordyn Garcia MD Unavailable Unavailable Vaneencali, Jordyn Garcia MD Unavailable Unavailable Rosalio, Jordyn Garcia MD Unavailable Unavailable Vanhannah, Jordyn Garcia MD Unavailable Unavailable Vanhannah, Jordyn Garcia MD Unavailable Unavailable Vanhannah, Jordyn Garcia MD Unavailable Unavailable Vanhannah, Jordyn Garcia MD Unavailable Unavailable Vaneencali, Jordyn Garcia MD Unavailable Unavailable Rosalio, Jordyn Garcia MD Unavailable Unavailable Vanhannah, Jordyn Garcia MD Unavailable Unavailable Rosalio, Jordyn Garcia MD Unavailable Unavailable Vanhannah, Jordyn Garcia MD Unavailable Unavailable Vanhannah, Jordyn Garcia MD Unavailable Unavailable Vanhannah, Jordyn Garcia MD Unavailable Unavailable Jordyn Santamaria MD Unavailable Unavailable Hernandez Brooke MD Unavailable Unavailable Hernandez Brooke MD Unavailable Unavailable Hernandez Brooke MD Unavailable Unavailable Hernandez Brooke MD Unavailable Unavailable Hernandez Brooke MD Unavailable Unavailable Hernandez Brooke MD Unavailable Unavailable Hernandez Brooke MD Unavailable Unavailable Hernandez Brooke MD Unavailable Unavailable Hernandez Brooke MD Unavailable Unavailable Hernandez Brooke MD Unavailable Unavailable Hernandez Brooke MD Unavailable Unavailable Hernandez Brooke MD Unavailable Unavailable Hernandez Brooke MD Unavailable Unavailable Hernandez Brooke MD Unavailable Unavailable Hernandez Brooke MD Unavailable Unavailable Hernandez Brooke MD Unavailable Unavailable Hernandez Brooke MD Unavailable Unavailable Hernandez Brooke MD Unavailable Unavailable Hernandez Brooke MD Unavailable Unavailable Hernandez Brooke MD Unavailable Unavailable Hernandez Brooke MD Unavailable Unavailable Hernandez Brooke MD Unavailable Unavailable Hernandez Brooke MD Unavailable Unavailable Hernandez Brooke MD Unavailable Unavailable Hernandez Brooke MD Unavailable Unavailable Hernandez Brooke MD Unavailable Unavailable Hernandez Brooke MD Unavailable Unavailable Hernandez Brooke MD Unavailable Unavailable Hernandez Brooke MD Unavailable Unavailable Hernandez Brooke MD Unavailable Unavailable SunHernandez MD Unavailable Unavailable SunHernandez MD Unavailable Unavailable SunHernandez MD Unavailable Unavailable SunHernandez MD Unavailable Unavailable SunHernandez MD Unavailable Unavailable SunHernandez MD Unavailable Unavailable SunHernandez MD Unavailable Unavailable SunHernandez MD Unavailable Unavailable SunHernandez MD Unavailable Unavailable SunHernandez MD Unavailable Unavailable SunHernandez MD Unavailable Unavailable SunHernandez MD Unavailable Unavailable SunHernandez MD Unavailable Unavailable SunHernandez MD Unavailable Unavailable SunHernandez MD Unavailable Unavailable SunHernandez MD Unavailable Unavailable SunHernandez MD Unavailable Unavailable SunHernandez MD Unavailable Unavailable SunHernandez MD Unavailable Unavailable SunHernandez MD Unavailable Unavailable SunHernandez MD Unavailable Unavailable Hernandez Brooke MD Unavailable Unavailable Hernandez Brooke MD Unavailable Unavailable Hernandez Brooke MD Unavailable Unavailable Hernandez Brooke MD Unavailable Unavailable Hernandez Brooke MD Unavailable Unavailable Hernandez Brooke MD Unavailable Unavailable Hernandez Brooke MD Unavailable Unavailable Hernandez Brooke MD Unavailable Unavailable Hernandez Brooke MD Unavailable Unavailable Hernandez Brooke MD Unavailable Unavailable Hernandez Brooke MD Unavailable Unavailable Hernandez Brooke MD Unavailable Unavailable Hernandez Brooke MD Unavailable Unavailable Hernandez Brooke MD Unavailable Unavailable Hernandez Brooke MD Unavailable Unavailable Hernandez Brooke MD Unavailable Unavailable Hernandez Brooke MD Unavailable Unavailable Hernandez Brooke MD Unavailable Unavailable Hernandez Brooke MD Unavailable Unavailable Hernandez Brooke MD Unavailable Unavailable Hernandez Brooke MD Unavailable Unavailable Hernandez Brooke MD Unavailable Unavailable Hernandez Brooke MD Unavailable Unavailable Hernandez Brooke MD Unavailable Unavailable Hernandez Brooke MD Unavailable Unavailable Hernandez Brooke MD Unavailable Unavailable Hegard, Ratna RAILROAD CARMAN Unavailable Unavailable Hegard, Ratna RAILROAD CARMAN Unavailable Unavailable Hegard, Ratna RAILROAD CARMAN Unavailable Unavailable Hegard, Ratna RAILROAD CARMAN Unavailable Unavailable Hegard, Ratna RAILROAD CARMAN Unavailable Unavailable Hegard, Ratna RAILROAD CARMAN Unavailable Unavailable Hegard, Ratna RAILROAD CARMAN Unavailable Unavailable Hegard, Ratna RAILROAD CARMAN Unavailable Unavailable Hegard, Ratna RAILROAD CARMAN Unavailable Unavailable Hegard, Ratna RAILROAD CARMAN Unavailable Unavailable Hegard, Ratna RAILROAD CARMAN Unavailable Unavailable Hegard, Ratna RAILROAD CARMAN Unavailable Unavailable Hegard, Ratna RAILROAD CARMAN Unavailable Unavailable Hegard, Ratna RAILROAD CARMAN Unavailable Unavailable Hegard, Ratna RAILROAD CARMAN Unavailable Unavailable Hegard, Ratna RAILROAD CARMAN Unavailable Unavailable Hegard, Ratna RAILROAD CARMAN Unavailable Unavailable Re-disclosure Warning The records that you are about to access may contain information from federally-assisted alcohol or drug abuse programs. If such information is present, then the following federally mandated warning applies: This information has been disclosed to you from records protected by federal confidentiality rules (42 CFR part 2). The federal rules prohibit you from making any further disclosure of this information unless further disclosure is expressly permitted by the written consent of the person to whom it pertains or as otherwise permitted by 42 CFR part 2. A general authorization for the release of medical or other information is NOT sufficient for this purpose. The Federal rules restrict any use of the information to criminally investigate or prosecute any alcohol or drug abuse patient.The records that you are about to access may contain highly sensitive health information, the redisclosure of which is protected by Article 27-F of the [facility] Public Health law. If you continue you may have access to information: Regarding HIV / AIDS; Provided by facilities licensed or operated by the [facility] Office of Mental Health; or Provided by the [facility] Office for People With Developmental Disabilities. If such information is present, then the following [facility] mandated warning applies: This information has been disclosed to you from confidential records which are protected by state law. State law prohibits you from making any further disclosure of this information without the specific written consent of the person to whom it pertains, or as otherwise permitted by law. Any unauthorized further disclosure in violation of state law may result in a fine or snf sentence or both. A general authorization for the release of medical or other information is NOT sufficient authorization for further disc losure. Allergies and Adverse Reactions Type Description Substance Reaction Status Data Source(s ) Adverse Reaction Adverse Reaction Contrast Dye MEDENT ([facility]) Family History Family Member Name Family Member Gender Family Member Status Date o f Status Description Data Source(s) Unknown Unknown Problem MEDENT ([facility]) Unknown Unknown Problem MEDENT ([facility]) Unknown Unknown Problem MED[facility] ([facility]) Unknown Unknown Problem MED[facility] ([facility]) Unknown Female Problem [facility] ([facility]) Unknown Female Problem MED[facility] ([facility]) Unknown Female Problem MEDENT ([facility]) Unknown Female Problem MED[facility] ([facility]) Unknown Female Problem MEDENT ([facility]) Encounters Encounter Providers Location Date Indications Data Source(s ) Outpatient Attender: Joel Brooke MDReferrer: Joel Brooke MD 09/08/2021 12:00:00 AM [facility] Outpatient Referrer: Joel Brooke MD 08/26/2021 12:00:00 AM EST Unspecified abnormalities of gait and mobility [facility] Unspecified abnormalities of gait and mo bility Outpatient Referrer: Joel Brooke MD 08/26/2021 12:00:00 AM EST Unspecified abnormalities of gait and mobility [facility] Unspecified abnormalities of gait and mo bility Outpatient Attender: Ratna Mello [facility] Main Office 1 10/19/2020 11:30:00 AM EST MEDENT ([facility]) Outpatient Attender: Joel ARAIZAeferrer: Denny JIMENEZ [id number] 07/24/2021 12:00:00 AM EDT - 08/18/2021 08:45:26 AM [facility] Outpatient Referrer: Joel Brooke MD 07/24/2021 12:00:00 AM ED T Cervicalgia [facility] Cervicalgia Outpatient Referrer: Joel Brooke MD 07/24/2021 12:00:00 AM EDT Low back pain, unspecified [facility] Low back pain, unspecified [facility] DEEP TISSUE MASSAGE THERAPIST Exam [address] [place] [address] 07/18/2021 12:00:00 AM EDT eCW1 ([facility]) Outpatient Attender: Vee Webb/Irvin/Rob/R eindl 07/14/2021 09:45:00 AM EDT MEDENT ([facility]) Unknown [address] [facility], [facility] [place] [address] 06/30/2021 12:00:00 AM EDT eCW1 ([facility]) Outpatient Attender: Maritza Webb/Sumner/Rob/Reindl 06/23/2021 10:30:00 AM EDT MED[facility] ([facility]) Outpatient Attender: Nori MEDRANO PA-C Physical Therapy 06/20/2021 11:15:00 AM EDT MED[facility] ([facility]) Outpatient Attender: Denny JIMENEZ [place] [facility] 01:00:00 PM EDT MEDENT ([facility] Outpatient Attender: Nori MEDRANO PA-C Physical Therapy 05/07/2021 11:00:00 AM EDT MED[facility] ([facility]) Outpatient Attender: Maritza Webb/Sumner/Rob/Reindl 05/06/2021 09:30:00 AM EDT [facility] ([facility]) Outpatient Attender: Denny JIMENEZ [place] [facility] 11/2020 09:45:00 AM EDT [facility] ([facility] Outpatient Attender: Denny JIMENEZ [place] [facility] 10/2020 10:40:00 AM EDT [facility] ([facility] Outpatient Attender: Denny JIMENEZ [place] [facility] 01:45:00 PM EDT [facility] ([facility] Outpatient Attender: Nori MEDRANO PA-C Physical Therapy 03/27/2021 11:15:00 AM EDT MED[facility] ([facility]) Outpatient Attender: Maritza Tony NP Tracey/Sumner/Rob/Reindl 03/19/2021 04:00:00 PM EDT [facility] ([facility]) Outpatient Attender: Maritza Webb/Sumner/Rob/Reindl 02/20/2021 02:00:00 PM EDT [facility] ([facility] Outpatient Attender: Denny JIMENEZ [place] [facility] 10:20:00 AM EDT MEDENT ([facility] Outpatient Attender: Maritza Webb/Sumner/Rob/Reindl 01/27/2021 10:00:00 AM EDT MED[facility] ([facility]) OFFICE OUTPATIENT VISIT 15 MINUTES Attender: Nori MEDRANO PA-C Physical Therapy 01/09/2021 02:00:00 PM EDT MEDENT ([facility]) OFFICE OUTPATIENT VISIT 15 MINUTES Attender: Nori MEDRANO PA-C Physical Therapy 12/25/2020 01:00:00 PM EDT MEDENT ([facility]) Outpatient Attender: Yoseph REYESSJAlfredALFONSO 021 12:00:00 AM EDT - 12/16/2020 10:25:43 AM EDT [facility] Office Visit Attender: Nori MEDRANO PA-C Physical Therapy 11/26/2020 12:45:00 PM EST MED[facility] ([facility]) Outpatient Attender: Denny JIMENEZ [place] [facility] 08:30:00 AM EST MEDENT ([facility] Outpatient Attender: Jordyn Santamaria MD Physical Therap y 10/18/2020 09:30:00 AM EST MED[facility] ([facility]) Outpatient Attender: KUSHAL DELGADILLO-SJPMarcieALFONSO 12:00:00 AM EST - 10/15/2020 09:02:26 AM EST [facility] Outpatient Attender: Denny JIMENEZ [place] [facility] 12/2020 02:30:00 PM EST MEDENT ([facility] Outpatient<td ID="encounterTypeDescripti onID0">TRIAGE NON URGENT</td><td>David Simpson MD, FACS</td><td>David Simpson MD [facility]</td><td>07/22/2020</td><td>2:43PM</td><td>4:41PM</td><td><content ID="encounterDiagnosisID0-0">Dry Eye Syndrome Both Eyes</content>, <content ID="encounterDiagnosisID0-1">Retinopathy Hypertensive Both Eyes</content>, <content ID="encounterDiagnosisID0-2">History of Nicotine Dependence</content>, <content ID="encounterDiagnosisID0-3">Essential Hypertension</content>, <content ID="encounterDiagnosisID0-4">Posterior Capsule Opacification Eccentric Capsule Left Eye</content></td> Attender: David Gaming MD, FACS David Cobb [facility] 07/22/2020 02:43:00 PM EST - 07/22/2020 04:41:00 PM ES T Posterior Capsule Opacification Eccentric Capsule Left EyeEssential HypertensionHistory of Nicotine DependenceRetinopathy Hypertensive Both EyesDry Eye Syndrome Both Eyes LIZBETH (David Gaming MD [facility]) Posterior Capsule Opacification Eccentri c Capsule Left Eye Essential Hypertension History of Nicotine Dependence Retinopathy Hypertensive Both Eyes Dry Eye Syndrome Both Eyes Outpatient Attender: Denny JIMENEZ [facility] 11:15:00 AM EDT [facility] ([facility] Immunizations Vaccine Date Status Description Data Source(s) COVID-19 VACC, MRNA(PFIZER)/PF 06/14/2021 12:00:00 AM EDT completed [facility] COVID-19 VACCINE Pfizer 06/14/2021 12:00:00 AM EDT completed [facility] Vaccine Series Complete: YESThis Data wa s Submitted to [facility] Via [employer]. New in 2012. IIV4 06/09/2021 03:15:00 PM EDT completed [facility] ([facility] COVID-19 VACCINE Pfizer 10/24/2020 12:00:00 AM EST completed [facility] Vaccine Series Complete: NOThis Data was Submitted to [facility] Via [employer] in 2012. IIV4 07/10/2020 11:47:00 AM EDT completed [facility] ([facility] Medications Medication Brand Name Start Date Product Form Dose Route Admi nistrative Instructions Pharmacy Instructions Status Indications Reaction Description Data Source(s) SUPREP BOWEL PREP KIT 17.5-3.13-1.6 gram SODIUM, POTASSIUM,M AG SULFATES 08/18/2021 12:00:00 AM EST recon soln 354 TAKE PER DOCTOR'S BOWEL PREP INSTRUCTIONS TAKE PER DOCTOR'S BOWEL PREP INSTRUCTIONS SOLD: 08/18/2021 [facility] 100,000 unit/gram 07/19/2021 12:00:00 AM EDT cream 30 APPLY 1 APPLICATION EXTERNALLY TO BREAST TISSUE TWO TIMES A DAY APPLY 1 APPLICATION EXTERNALLY TO BREAST TISSUE TWO TIMES A DAY SOLD: 08/18/2021 [facility] 100,000 unit/gram 07/19/2021 12:00:00 AM EDT cream 30 APPLY 1 APPLICATION EXTERNALLY TO BREAST TISSUE TWO TIMES A DAY APPLY 1 APPLICATION EXTERNALLY TO BREAST TISSUE TWO TIMES A DAY SOLD: 07/19/2021 [facility] Nystatin 812760 UNT/ML Topical Cream Nystatin 285181 U NIT/GM Nystatin 561361 UNIT/GM 07/18/2021 12:00:00 AM EDT 1.0 {application} active Nystatin 805705 UNIT/GM eCW1 ([facility]) 50 mg 06/28/2021 12:00:00 AM EDT tablet 90 TAKE ONE TABLET BY MOUTH EVERY DAY TAKE ONE TABLET BY MOUTH EVERY DAY SOLD: 07/02/2021 [facility] Losartan Potassium 50 MG Oral Tablet Los tara Potassium 50 MG Oral Tablet (COZAAR) Losartan Potassium 50 MG Oral Tablet (COZAAR) 06/27/20 12:00:00 AM EDT 1 {tbl} Oral active Take 1 tablet by mouth daily [facility] 120 ACTUAT Fluticasone propionate 0.115 MG/ACTUAT / salmeterol 0.021 MG/ACTUAT Metered Dose Inhaler [Advair] Advair HFA 115-21 MCG/ACT Inhalation Aerosol Advair HFA 115-21 MCG/ACT Inhalation Aerosol 06/18/2021 12:00:00 AM EDT active [facility] 200 mg 06/09/2021 12:00:00 AM EDT tablet 10 TAKE 1 TABLET BY MOUTH ONCE DAILY FOR 5 DAYS THEN ONCE A WEEK TAKE 1 TABLET BY MOUTH ONCE DAILY FOR 5 DAYS THEN ONCE A WEEK SOLD: 07/19/2021 [facility] 200 mg 06/09/2021 12:00:00 AM EDT tablet 10 TAKE 1 TABLET BY MOUTH ONCE DAILY FOR 5 DAYS THEN ONCE A WEEK TAKE 1 TABLET BY MOUTH ONCE DAILY FOR 5 DAYS THEN ONCE A WEEK SOLD: 06/09/2021 [facility] Nystatin 06/09/2021 12:00:00 AM EDT completed MEDENT ([facility] Fluconazole 200 MG Oral Tablet [Diflucan] Diflucan 06/09/2021 1 2:00:00 AM EDT ORAL active MEDENT ([facility] Nystatin 100 UNT/MG Topical Powder 100,000 unit/gram NYSTATI N 06/09/2021 12:00:00 AM EDT powder 30 APPLY THREE TIME S A DAY UNDER BREASTS / ABDOMINAL FOLDS NEEDED APPLY THREE TIMES A DAY UNDER BREASTS / ABDOMINAL FOLDS NEEDED SOLD: 06/09/2021 [facility] 100 mg/5 mL 04/22/2021 12:00:00 AM EDT liquid 473 TAKE 2 TEASPOONFULS (10 ML) BY MOUTH EVERY FOUR HOURS NEEDED FOR COUGH TAKE 2 TEASPOONFULS (10 ML) BY MOUTH EVERY FOUR HOURS NEEDED FOR COUGH SOLD: 08/19/2021 [facility] Guaifenesin 20 MG/ML Oral Solution Guaifenesin 04/22/2021 12:00:00 AM EDT ORAL completed MEDENT ([facility] 100 mg/5 mL 04/22/2021 12:00:00 AM EDT liquid 473 TAKE 2 TEASPOONFULS (10 ML) BY MOUTH EVERY FOUR HOURS NEEDED FOR COUGH TAKE 2 TEASPOONFULS (10 ML) BY MOUTH EVERY FOUR HOURS NEEDED FOR COUGH SOLD: 04/22/2021 [facility] Injection (SC)/(Im) 04/21/2021 12:00:00 AM EDT completed [facility] ([facility] Medication administered onsite Solu-Medrol Solu-Medrol 04/21/2021 12:00:00 AM EDT completed [facility] ([facility] Methylprednisolone 125 MG Injection [Solu-Medrol] METH YLPREDNISOLONE SOD SUCC/PF 04/21/2021 12:00:00 AM EDT recon soln 1 INTRAMUSCULA RLY INTRAMUSCULARLY SOLD: 04/21/2021 [facility] Methylprednisolone 125 MG Injection [Solu-Medrol] METH YLPREDNISOLONE SOD SUCC/PF 04/21/2021 12:00:00 AM EDT recon soln 1 INTRAMUSCULA RLY INTRAMUSCULARLY SOLD: 04/22/2021 [facility] 10 mg 04/18/2021 12:00:00 AM EDT tablet 42 TAKE TWO TABLETS BY MOUTH THREE TIMES A DAY FOR 3 DAYS THEN 1 THREE TIMES A DAY FOR 3 DAYS THEN 1 TWO TIMES A DAY FOR 3 DAYS THEN 1 ONCE DAILY FOR 3 DAYS THEN 1/2 ONCE DAILY TAKE TWO TABLETS BY MOUTH THREE TIMES A DAY FOR 3 DAYS THEN 1 THREE TIMES A DAY FOR 3 DAYS THEN 1 TWO TIMES A DAY FOR 3 DAYS THEN 1 ONCE DAILY FOR 3 DAYS THEN 1/2 ONCE DAILY SOLD: 04/18/2021 [facility] 500 mg 04/18/2021 12:00:00 AM EDT tablet 10 TAKE ONE TABLET BY MOUTH EVERY DAY TAKE ONE TABLET BY MOUTH EVERY DAY SOLD: 04/18/2021 [facility] Levofloxacin 500 MG Oral Tablet Levofloxacin 04/18/2021 12:00:00 AM E DT ORAL completed MEDENT ([facility] Prednisone 10 MG Oral Tablet Prednisone 04/18/2021 12:00:00 AM EDT ORAL completed [facility] ([facility] 120 ACTUAT Fluticasone propionate 0.115 MG/ACTUAT / salmeterol 0.021 MG/ACTUAT Metered Dose Inhaler [Advair] 115-21 mcg/actuation FLUTICASONE PROPION/SALMETEROL 03/19/2021 12:00:00 AM EDT HFA aerosol inhaler 12 INHALE 2 PUFFS BY MOUTH TWO TIMES A DAY INHALE 2 PUFFS BY MOUTH TWO TIMES A DAY SOLD: 05/23/2021 [facility] 120 ACTUAT Fluticasone propionate 0.115 MG/ACTUAT / salmeterol 0.021 MG/ACTUAT Metered Dose Inhaler [Advair] Advair HFA 03/19/2021 12:00:00 AM EDT RESPIRATORY active MEDENT ( [facility] ) 120 ACTUAT Fluticasone propionate 0.115 MG/ACTUAT / salmeterol 0.021 MG/ACTUAT Metered Dose Inhaler [Advair] 115-21 mcg/actuation FLUTICASONE PROPION/SALMETEROL 03/19/2021 12:00:00 AM EDT HFA aerosol inhaler 12 INHALE 2 PUFFS BY MOUTH TWO TIMES A DAY INHALE 2 PUFFS BY MOUTH TWO TIMES A DAY SOLD: 03/21/2021 [facility] 120 ACTUAT Fluticasone propionate 0.115 MG/ACTUAT / salmeterol 0.021 MG/ACTUAT Metered Dose Inhaler [Advair] 115-21 mcg/actuation FLUTICASONE PROPION/SALMETEROL 03/19/2021 12:00:00 AM EDT HFA aerosol inhaler 12 INHALE 2 PUFFS BY MOUTH TWO TIMES A DAY INHALE 2 PUFFS BY MOUTH TWO TIMES A DAY SOLD: 04/19/2021 [facility] Albuterol Sulfate HFA 108 (90 Base) MCG/ ACT Inhalation Aerosol Solution (PROVENTIL HFA) 9878-6937-00 02/21/2021 12:00:00 AM EDT active INHALE TWO PUFFS BY MOUTH FOUR TIMES A DAY NEEDED [facility] 90 mcg/actuation 02/21/2021 12:00:00 AM EDT HFA aerosol inha ler 8 INHALE TWO PUFFS BY MOUTH FOUR TIMES A DAY NEEDED INHALE TWO PUFFS BY MOUTH FOUR TIMES A DAY NEEDED SOLD: 02/21/2021 [facility] 60 ACTUAT Albuterol 0.09 MG/ACTUAT Metered Dose Inhaler Albu terol Sulfate HFA 02/20/2021 12:00:00 AM EDT RESPIRATORY active MEDENT ([facility] ) Aerochamber Plus Rupesh-Vu 02/20/2021 12:00:00 AM EDT active MED[facility] ([facility] ) 10 mg 02/07/2021 12:00:00 AM EDT tablet 42 TAKE 2 TABLETS BY MOUTH 3 TIMES A DAY FOR 3 DAYS THEN 1 TABLET 3 TIMES A DAY FOR 3 DAYS THEN 1 TABLET 2 TIMES A DAY FOR 3 DAYS THEN 1 TABLET ONCE DAILY FOR 3 DAYS THEN ONE-HALF TABLET DAILY TAKE 2 TABLETS BY MOUTH 3 TIMES A DAY FOR 3 DAYS THEN 1 TABLET 3 TIMES A DAY FOR 3 DAYS THEN 1 TABLET 2 TIMES A DAY FOR 3 DAYS THEN 1 TABLET ONCE DAILY FOR 3 DAYS THEN ONE-HALF TABLET DAILY SOLD: 02/07/2021 [facility] Prednisone 10 MG Oral Tablet Prednisone 02/07/2021 12:00:00 AM EDT ORAL completed [facility] ([facility] Fexofenadine hydrochloride 180 MG Oral Tablet HM Fexofenadin e HCL 02/07/2021 12:00:00 AM EDT ORAL completed [facility] ([facility] 180 mg 02/07/2021 12:00:00 AM EDT tablet 14 TAKE ONE TABLET BY MOUTH EVERY DAY TAKE ONE TABLET BY MOUTH EVERY DAY SOLD: 02/07/2021 [facility] 50 mg 01/02/2021 12:00:00 AM EDT tablet 90 TAKE ONE TABLET BY MOUTH EVERY DAY TAKE ONE TABLET BY MOUTH EVERY DAY SOLD: 01/03/2021 [facility] 50 mg 01/02/2021 12:00:00 AM EDT tablet 90 TAKE ONE TABLET BY MOUTH EVERY DAY TAKE ONE TABLET BY MOUTH EVERY DAY SOLD: 03/31/2021 [facility] 60 mg 01/01/2021 12:00:00 AM EDT capsule,delayed release (DR/EC) 180 TAKE ONE CAPSULE BY MOUTH TWICE A DAY TAKE ONE CAPSULE BY MOUTH TWICE A DAY SOLD: 01/03/2021 [facility] 2 ML Sodium Hyaluronate 10 MG/ML Prefilled Syringe [Euflexxa ] Euflexxa 12/25/2020 12:00:00 AM EDT active [facility] ([facility] Hydrochlorothiazide 12.5 MG Oral Tablet HYDROCHLOROTHIAZIDE 12/16/2020 12:00:00 AM EDT tablet 90 TAKE ONE TABLET BY MOUTH NITA LY TAKE ONE TABLET BY MOUTH DAILY SOLD: 03/21/2021 [facility] Hydrochlorothiazide 12.5 MG Oral Tablet hydrochlorothiazide (HYDRODIURIL) 12.5 MG tablet hydrochlorothiazide (HYDRODIURIL) 12.5 MG tablet 12/16 12:00:00 AM EDT 12.5 mg Oral active Take 1 t ablet (12.5 mg total) by mouth daily [facility] Hydrochlorothiazide 12.5 MG Oral Tablet HYDROCHLOROTHIAZIDE 12/16/2020 12:00:00 AM EDT tablet 90 TAKE ONE TABLET BY MOUTH NITA WATKINS TAKE ONE TABLET BY MOUTH DAILY SOLD: 12/18/2020 [facility] Hydrochlorothiazide 12.5 MG Oral Tablet HYDROCHLOROTHIAZIDE 12/16/2020 12:00:00 AM EDT tablet 90 TAKE ONE TABLET BY MOUTH NITA WATKINS TAKE ONE TABLET BY MOUTH DAILY SOLD: 06/21/2021 [facility] Acetaminophen 325 MG / Hydrocodone Carla trate 5 MG Oral Tablet HYDROcodone- Acetaminophen 5-325 MG Oral Tablet (LORTAB) HYDROcodone-Acetaminophen 5-325 MG Oral Tablet (LORTAB) 11/19/2020 12:00:00 AM EST active TAKE ONE TO TWO TABLETS BY MOUTH EVERY 4 6 HOURS NEEDED FOR POST SURGICAL PAIN. MAXIMUM DAILY DOSE 8 TABLETS [facility] 5-325 mg 11/19/2020 12:00:00 AM EST tablet 30 TAKE ONE TO TWO TABLETS BY MOUTH EVERY 4-6 HOURS NEEDED FOR POST SURGICAL PAIN. MAXIMUM DAILY DOSE = 8 TABLETS TAKE ONE TO TWO TABLETS BY MOUTH EVERY 4 -6 HOURS NEEDED FOR POST SURGICAL PAIN. MAXIMUM DAILY DOSE = 8 TABLETS SOLD: 11/19/2020 [facility] Acetaminophen 325 MG / Hydrocodone Bitartrate 5 MG Ora l Tablet Hydrocodone-Acetaminophen 11/19/2020 12:00:00 AM EST ORAL active [facility] ([facility]) 25 mg 10/16/2020 12:00:00 AM EST tablet 30 TAKE ONE TABLET BY MOUTH EVERY DAY TAKE ONE TABLET BY MOUTH EVERY DAY SOLD: 11/16/2020 [facility] 25 mg 10/16/2020 12:00:00 AM EST tablet 30 TAKE ONE TABLET BY MOUTH EVERY DAY TAKE ONE TABLET BY MOUTH EVERY DAY SOLD: 10/18/2020 [facility] Hydrochlorothiazide 25 MG Oral Tablet hy drochlorothiazide (HYDRODIURIL) 25 MG tablet hydrochlorothiazide (HYDRODIURIL) 25 MG tablet 12:00:00 AM EST 25 mg Oral aborted Take 1 tablet (2 5 mg total) by mouth daily [facility] 10 mg 07/17/2020 12:00:00 AM EDT tablet 17 TAKE 1 TABLET BY MOUTH THREE TIMES A DAY FOR 2 DAYS , 1 TABLET TWO TIMES A DAY FOR 3 DAYS , 1 TABLET ONCE DAILY FOR 3 DAYS , THEN ONE HALF TABLET ONCE DAILY TAKE 1 TABLET BY MOUTH THREE TIMES A DAY FOR 2 DAYS , 1 TABLET TWO TIMES A DAY FOR 3 DAYS , 1 TABLET ONCE DAILY FOR 3 DAYS , THEN ONE HALF TABLET ONCE DAILY SOLD: 07/17/2020 [facility] 10 mg 07/10/2020 12:00:00 AM EDT tablet 42 TAKE 2 TABLETS BY MOUTH THREE TIMES A DAY FOR 3 DAYS THEN 1 TABLET THREE TIMES A DAY FOR 3 DAYS THEN 1 TABLET TWO TIMES A DAY FOR 3 DAYS THEN 1 TABLET ONCE DAILY FOR 3 DAYS THEN 1/2 TABLET ONCE DAILY TAKE 2 TABLETS BY MOUTH THREE TIMES A DA Y FOR 3 DAYS THEN 1 TABLET THREE TIMES A DAY FOR 3 DAYS THEN 1 TABLET TWO TIMES A DAY FOR 3 DAYS THEN 1 TABLET ONCE DAILY FOR 3 DAYS THEN 1/2 TABLET ONCE DAILY SOLD: 07/11/2020 [facility] Prednisone 10 MG Oral Tablet Prednisone 07/10/2020 12:00:00 AM EDT ORAL active [facility] ([facility] 50 mg 07/05/2020 12:00:00 AM EDT tablet 90 TAKE ONE TABLET BY MOUTH EVERY DAY TAKE ONE TABLET BY MOUTH EVERY DAY SOLD: 07/08/2020 [facility] 50 mg 07/05/2020 12:00:00 AM EDT tablet 90 TAKE ONE TABLET BY MOUTH EVERY DAY TAKE ONE TABLET BY MOUTH EVERY DAY SOLD: 10/05/2020 [facility] Hydrochlorothiazide 12.5 MG Oral Tablet HYDROCHLOROTHIAZIDE 07/05/2020 12:00:00 AM EDT tablet 90 TAKE ONE TABLET BY MOUTH BENITO DAY TAKE ONE TABLET BY MOUTH EVERY DAY SOLD: 07/08/2020 [facility] Hydrochlorothiazide 12.5 MG Oral Tablet HYDROCHLOROTHIAZIDE 07/05/2020 12:00:00 AM EDT tablet 90 TAKE ONE TABLET BY MOUTH BENITO DAY TAKE ONE TABLET BY MOUTH EVERY DAY SOLD: 10/05/2020 [facility] Hydrochlorothiazide 12.5 MG Oral Tablet hydrochlorothiazide (HYDRODIURIL) 12.5 MG tablet hydrochlorothiazide (HYDRODIURIL) 12.5 MG tablet 07/04 12:00:00 AM EDT aborted TAKE ONE TABLET BY MOUTH EVERY DAY [facility] Losartan Potassium 50 MG Oral Tablet losartan (COZAAR) 50 MG tablet losartan (COZAAR) 50 MG tablet 07/04/2020 12:00:00 AM EDT active TAKE ONE TABLET BY MOUTH EVERY DAY [facility] 0.5 ML Streptococcus pneumoniae serotype 1 capsular antigen diphtheria [id number] protein conjugate vaccine 0.0044 MG/ML / Streptococcus pneumoniae serotype 14 capsular antigen diphtheria [id number] protein conjugate vaccine 0.0044 MG/ML / Streptococcus pneumonia PREVNAR 13 SUSP PREVNAR 13 SUSP 10/04/2017 12: 00:00 AM EST aborted [facility] duloxetine 60 MG Delayed Release Oral Capsule [Cymbalt a] Cymbalta 60 MG OR CPEP Cymbalta 60 MG OR CPEP 11/03/2013 12:00:00 AM EST 1 aborted duloxetine 60 MG Delayed Release Oral Capsule [Cymbalta] LIZBETH (David Gaming MD [facility]) gabapentin 300 MG Oral Capsule gabapentin (NEURONTIN) 300 MG capsule gabapentin (NEURONTIN) 300 MG capsule 300 mg Oral aborted Take 300 mg by mouth Three times daily. [facility] Insurance Providers Payer name Policy type / Coverage type Policy ID Covered constitution party ID Covered constitution party's relationship to hollis Policy [place] Plan Information State Ins Fund () Workers Compensation [id number] Self State Ins Fund () Workers Compensation [id number] Self [id number] [place] Medig[place] Part B [id number] Self [id number] MEDICARE COMPLETE [id number] SP [id number] MEDICARE COMPLETE [id number] SP [id number] BS [place] Med[place] Part B [id number] Self EXCELLUS H [id number] Self [id number] BS [place] Medigap Part B [id number] Self [id number] [place] Medigap Part B [id number] Self [id number] BC/BS Of [facility] Commercial [id number] Self UHC UNITED MEDICARE COMPLETE G [id number] Self [id number] Medicare [place] Medicare Primary [id number] Self [facility] Commercial Complete Choice Rppo [id number] Self C omplete Choice Rppo Medicare [place] Medigap Part B [id number] Self [id number] [facility] ([facility]) Commercial [id number] Self [id number] AMER PROG TODAYS OPTIONS G [id number] Self [id number] WELLCARE MEDICARE [id number] Yana [id number] WELLCARE MEDICARE [id number] xxxxxxxxx [phone] [id number] WELLCARE MEDICARE HMO G [id number] Self [id number] WELLCARE [id number] SP [id number] WELLCARE O [id number] O [id number] WELLCARE [id number] SP [id number] ANSI-Medicare Part B [id number] ANSI-Health Maintenance Organization (HM O) [id number] MEDICARE COMPLETE [id number] SP [id number] TODAYS OPTIONS CM O [id number] S [id number] TODAYS OPTIONS O [id number] S [id number] TODAYS OPTIONS O [id number] S [id number] MEDICARE COMPLETE-[facility] O [id number] S [id number] 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, thoracic region Diagnosis 08/26/2021 12:25:58 PM EST [facility] R26.9 Unspecified abnormalities of gait and mo bility Unspecified abnormalities of gait and mobility Diagnosis 08/26/2021 12:25:58 PM EST [facility] M54.2 Cervicalgia Cervicalgia Diagnosis 07/24/2021 10:19:36 AM T [facility] M54.50 Low back pain, unspecified Low back pain, unspecified Diagnosis 07/24/2021 10:12:18 AM [facility] R07.2 Precordial pain Precordial pain Diagnosis 12/16/2020 09:4 4:11 AM EDT [facility] R06.02 Shortness of breath Shortness of breath Diagnosis 0 12/16/2020 09:44:11 AM T [facility] [id number] Essential hypertension Essential hypertension Problem 07/10/2021 12:00:00 AM EDT [facility] ([facility], ) I10 Essential hypertension Essential hypertension Problem 02/07/2021 12:00:00 AM EDT [facility] ([facility] ) M25.562 Knee pain Knee pain Problem 11/08/2020 12:00:00 AM ES T [facility] ([facility] Surgeries/Procedures Procedure Description Date Indications Data Source(s) Shave Biopsy Of Skin, Single Lesion 08/19/2021 12:00:0 0 AM EST [facility] ([facility]) OFFICE OUTPATIENT VISIT 25 MINUTES 08/19/2021 12:00:00 AM EST [facility] ([facility]) OFFICE OUTPATIENT NEW 45 MINUTES 07/14/2021 12:00:00 A M EDT [facility] ([facility], ) Spirometry 06/23/2021 12:00:00 AM EDT M EDENT ([facility]) OFFICE OUTPATIENT VISIT 25 MINUTES 06/23/2021 12:00:00 AM EDT [facility] ([facility]) ARTHROCENTESIS ASPIR&/INJECTION MAJOR JT/BURSA 12:00:00 AM EDT [facility] ([facility] OFFICE OUTPATIENT VISIT 25 MINUTES 06/20/2021 12:00:00 AM EDT [facility] ([facility] ) OFFICE OUTPATIENT VISIT 25 MINUTES 06/09/2021 12:00:00 AM EDT [facility] ([facility] X-Ray Spine Lumbosacral Complete Inc Bending Views Min Of 6 05/07/2021 12:00:00 AM EDT [facility] ([facility] RADIOLOGIC EXAM KNEE COMPLETE 4/MORE VIEWS 05/07/2021 12:00:00 AM EDT [facility] ([facility] ) OFFICE OUTPATIENT VISIT 25 MINUTES 05/07/2021 12:00:00 AM EDT [facility] ([facility] ) Spirometry 05/06/2021 12:00:00 AM EDT M EDENT ([facility]) OFFICE OUTPATIENT VISIT 15 MINUTES 05/06/2021 12:00:00 AM EDT [facility] ([facility]) OFFICE OUTPATIENT VISIT 15 MINUTES 04/22/2021 12:00:00 AM EDT [facility] ([facility] Injection (SC)/(Im) 04/21/2021 12:00:00 AM EDT [facility] ([facility] OFFICE OUTPATIENT VISIT 15 MINUTES 04/21/2021 12:00:00 AM EDT [facility] ([facility] OFFICE OUTPATIENT VISIT 15 MINUTES 04/18/2021 12:00:00 AM EDT [facility] ([facility] ARTHROCENTESIS ASPIR&/INJECTION MAJOR JT/BURSA 12:00:00 AM EDT [facility] ([facility] ) OFFICE OUTPATIENT VISIT 25 MINUTES 03/27/2021 12:00:00 AM EDT [facility] ([facility] ) OFFICE OUTPATIENT VISIT 25 MINUTES 03/19/2021 12:00:00 AM EDT [facility] ([facility]) OFFICE OUTPATIENT VISIT 25 MINUTES 02/20/2021 12:00:00 AM EDT [facility] ([facility]) OFFICE OUTPATIENT VISIT 25 MINUTES 02/07/2021 12:00:00 AM EDT [facility] ([facility] Bronchospasm Evaluation 01/30/2021 12:00:00 AM EDT [facility] ([facility]) Plethysmography Determination Lung Volumes & Per Airway Resi st 01/30/2021 12:00:00 AM EDT [facility] ([facility] DIFFUSING CAPACITY 01/30/2021 12:00:00 AM EDT [facility] ([facility]) Spirometry 01/27/2021 12:00:00 AM EDT M EDENT ([facility]) OFFICE OUTPATIENT NEW 45 MINUTES 01/27/2021 12:00:00 A M EDT [facility] ([facility]) ARTHROCENTESIS ASPIR&/INJECTION MAJOR JT/BURSA 021 12:00:00 AM EDT [facility] ([facility]) OFFICE OUTPATIENT VISIT 15 MINUTES 01/09/2021 12:00:00 AM EDT [facility] ([facility]) ARTHROCENTESIS ASPIR&/INJECTION MAJOR JT/BURSA 021 12:00:00 AM EDT [facility] ([facility]) ARTHROCENTESIS ASPIR&/INJECTION MAJOR JT/BURSA 021 12:00:00 AM EDT [facility] ([facility]) OFFICE OUTPATIENT VISIT 15 MINUTES 12/25/2020 12:00:00 AM EDT [facility] ([facility]) Arthroscopy Knee Chondroplasty 11/19/2020 12:00:00 AM EST [facility] ([facility]) OFFICE OUTPATIENT VISIT 25 MINUTES 11/08/2020 12:00:00 AM EST [facility] ([facility] OFFICE OUTPATIENT VISIT 25 MINUTES 10/18/2020 12:00:00 AM EST [facility] ([facility]) ECG ROUTINE ECG W/LEAST 12 LDS W/I&R <td>POCT AMB EKG</td><td>Routine</td><td>10/15/2020 10:36 AM EST</td><td> Shortness of breath</td><td> </td> 10/15/2020 03:36:00 PM EST Shortness of breath [facility] Shortness of breath Electrocardiogram Complete 09/23/2020 12:00:00 AM EST [facility] ([facility] OFFICE OUTPATIENT VISIT 15 MINUTES 09/23/2020 12:00:00 AM EST [facility] ([facility] Intermediate Eye Exam Established Patient Intermediate Eye Exam Established Patient 07/22/2020 12:00:00 AM EST [facility] ([facility]) ARTHROCENTESIS ASPIR&/INJECTION MAJOR JT/BURSA 12:00:00 AM EDT [facility] ([facility]) Results ID Date Data Source [id number] 08/28/2021 08:59:11 AM EST [facility] MR THORACIC SPINE WITHOUT CONTRAST [id number] FINAL RESULTInterpreted by:Maged Shrestha MDEXAM: THORACIC SPINE MRI.INDICATION: Episodes of falling. Loss of balance. Assess for myelopathic changes.Prior exam: NoneTECHNIQUE: T1 vertebral bodies identified by counting down on the cervical thoracic localizer run. Then, sagittal axial imaging performed of the thoracic spine utilizing various pulse sequences.FINDINGS:. Normal kyphosis of the thoracic spine. No vertebral body fractures. Age-appropriate degenerative changes seen throughout the thoracic spine most pronounced at T6-7. Normal marrow signal characteristics of the thoracic vertebra. Normal caliber and signal characteristics of the thoracic spinal cord. No significant dorsal disc bulges or herniations. No central canal stenosis. No interspinous or longitudinal ligament edema. Normal position caliber of the descending thoracic aorta. Unremarkable partially visualized right kidney.IMPRESSION: Unremarkable thoracic spine MRI. Normal caliber and si gnal characteristics the thoracic spinal cord.This document has been electronically signed by Maged Shrestha MD on 08/28/2021 8:57 AM Name Value Range Interpretation Code Description Data Violeta rce(s) Supporting Document(s) ID Date Data Source [id number] 08/27/2021 09:00:25 AM EST [facility] MR CERVICAL SPINE WITHOUT CONTRAST [id number] FINAL RESULTInterpreted by:Maged Shrestha MDEXAM: CERVICAL SPINE MRIINDICATION: Difficulty with balance.PRIOR EXAM: July 24, 2021 radiographsTECHNIQUE: Sagittal and axial imaging performed utilizing various pulse sequences. FINDINGS: Straightening of the normal lordosis of the mid cervical spine. Moderate disc degenerative disease most pronounced C5-6 and C6-7 with disc space narrowing and spondylosis deformans. Normal caliber and signal characteristics of the cervical spinal cord without myelomalacia. Normal vertebral body marrow signal characteristics. No interspinous or longitudinal ligament edema.C2-3: There is a small moderate size central dorsal protruding disc herniation with mild cord impingement. Mild central canal stenosis. No significant exiting neural foraminal stenosis.C3-4: There is a small moderate size dorsal right and dorsal left disc osteophyte complexes with resultant mild spinal canal stenosis. Moderate osteophytic narrowing both exiting neural foramina.C4-5: Mild broad-based dorsal disc bulge and dorsal projecting endplate osteophytes with resultant mild spinal canal stenosis. No significant exiting neural foraminal stenosis.C5-6: Large broad- based dorsal disc osteophyte complex with cord compression and moderate severe central canal stenosis. Severe osteophytic narrowing both exiting neural foramina.C6-7: Broad-based dorsal disc osteophyte complex extending into both exiting neural foramina with moderate spinal canal stenosis and severe bilateral exiting neural foraminal stenosis.C7-T1: No disc herniation. No central canal or exiting neural foraminal stenosis.Unremarkable partially visualized thyroid gland. Unremarkable partially visualized parotid glands and submandibular glands. Normal signal void present within the partially visualized carotid arteries and vertebral arteries.IMPRESSION: 1. Straightening of normal lordosis. Moderate disc degenerative disease C5-6 and C6-7. No myelomalacia. 2. C2-3: Mild spinal canal stenosis due to disc herniation.3. C3-4: Mild spinal canal stenosis. Moderate bilateral exiting neural foraminal stenosis.4. C4-5: Mild spinal canal stenosis5. C5-6: Moderate to severe central canal stenosis. Severe bilateral exiting neural foraminal stenosis6. C6-7: Moderate spinal canal stenosis and severe bilateral exiting neural foraminal stenosis.This document has been electronically signed by Maged Shrestha MD on 08/27/2021 8:58 AM Name Value Range Interpretation Code Description Data Violeta rce(s) Supporting Document(s) ID Date Data Source [id number] 08/23/2021 10:25:00 AM EST [facility] Name Value Range Interpretation Code Description Data Violeta rce(s) Supporting Document(s) SARS-CoV-2 (COVID-19) RNA [Presence] in Respiratory specimen by ARAMIS with probe detection Not Detected [facility] This lab was ordered by [facility] and reported by [employer] ID Date Data Source [id number] 08/23/2021 10:25:00 AM EST [facility] ([facility] Name Value Range Interpretation Code Description Data Violeta rce(s) Supporting Document(s) Laboratory test finding (navigational concept) Laboratory test result [facility] ([facility] ASSAY INFORMATION: Real Time RT-PCR NOTE: The COVID-19 assay has been cleared by the U.S. Food and Drug Administration under the Emergency Use Authorization (EUA). [employer] and [employer] are designated as high complexity laboratories by the Clinical Laboratory Improvement Amendments of 1988(CLIA) and are qualified to perform this test. Not Detected ID Date Data Source [id number] 08/19/2021 01:00:00 PM EST [facility] ([facility]) Name Value Range Interpretation Code Description Data Violeta rce(s) Supporting Document(s) Laboratory test finding (navigational concept) Laboratory test result [facility] ([facility]) No further treatment Laboratory test finding (navigational concept) Laboratory test result [facility] ([facility]) No further treatment ID Date Data Source [id number] 08/16/2021 09:53:13 AM EST [facility] Name Value Range Interpretation Code Description Data Violeta rce(s) Supporting Document(s) Progress Note [facility] JIRIDb8jEeGDLwFg98/EGRdbBUTvl2EsZLdcIWi8YZudYWRaA7CcYNM1zL2aVCJ7RUsHArYsZzIsNNQ8 [facility] [file] aowMIk9J2DUXw8ePEq/RNeTyekj78xIn4KpmngcGWCKIVJf4CU3uDHYrFPNEijWQ/Volunteer Recruitment Coordinator+8pk+e8xSrU9s [file] /kQP9lR8UvjwA/Li60dv/[place]/c5zZCs2/T/1G+j9aiYTqLAqfXg8vICpJo/MubghI7lW/pe2UscLx+2P8 [file] mu2j6Y8dFRfD8c9xmHcCi8tI4Inqsd6riwrkmbtYIqTw9xI4Vk/n2hSZxV3ZXWK9Jkix+supervisor unloading/0C9GoJQr [file] TdRlMFN3ADQ4ZAKhOKImNvxiLrDnRZ3ZSg7QOzJ2KKZ9qEQeRf3PMaUtHsgWXhZiUN4MKFa= ID Date Data Source [id number] 07/27/2021 09:30:52 AM [facility] XR SPINE LUMBAR MIN 4 VIEWS DOES NOT INC LUDE BENDING [id number] RESULTInterpreted by:Geronimo Holloway MDAVELINO SPINECLINICAL STATEMENT: Low back pain.TECHNIQUE: AP, lateral, and flexion-extension views of the lumbar spine. COMPARISON: NoneFINDINGS:No acute fracture or subluxation is identified. There is grade 1 anterolisthesis at L4-L5 measuring 7 mm, stable on flexion extension views.Otherwise, normal vertebral body heights and alignment are maintained. Advanced multilevel degenerative disc disease and facet arthropathy is present throughout the lumbar spine.IMPRESSION:Grade 1 anterolisthesis at L4- L5, stable on flexion extension views.Advanced multilevel lumbar degenerative disc disease and facet arthropathy.This document has been electronically signed by Geronimo Holloway MD on 07/27/2021 9:28 AM Name Value Range Interpretation Code Description Data Violeta rce(s) Supporting Document(s) ID Date Data Source [id number] 07/26/2021 12:19:16 PM EDT [facility] XR SPINE CERV 4 OR MORE VIEWS [id number] RESULTInterpreted by:Geronimo Holloway [facility] TULSAERVICAL SPINECLINICAL STATEMENT: Neck pain TECHNIQUE: AP, neutral lateral, swimmer's, and flexion and extension views of the cervical spine.COMPARISON: None.FINDINGS:No acute fracture or subluxation is identified. The prevertebral soft tissues are within normal limits.Moderate degenerative disc space narrowing is noted at C5-C6 and C6-C7.Otherwise, normal intervertebral disc spaces are preserved. IMPRESSION:Moderate degenerative disc disease at C5-C6 and C6-C7.This document has been electronically signed by Conner Holloway MD on 07/26/2021 12:16 PM Name Value Range Interpretation Code Description Data Violeta rce(s) Supporting Document(s) ID Date Data Source [id number] 07/21/2021 12:00:00 AM EDT [facility] Name Value Range Interpretation Code Description Data Violeta rce(s) Supporting Document(s) SARS-CoV2 Rapid Antigen Negative [facility] This lab was ordered by [facility] and reported by [facility]. ID Date Data Source [id number] 06/23/2021 10:21:00 AM EDT [facility] ([facility], ) Name Value Range Interpretation Code Description Data Violeta rce(s) Supporting Document(s) PDFReport Laboratory test result [facility] ([facility], ) FVC-Pred 3.14 L [facility] ([facility], ) FVC-Pre 2.49 L [facility] ([facility], ) Fev1-Pred 2.37 L [facility] ([facility], ) FVC-%Pred-Pre 79 L [facility] ([facility], ) FVC-LLN 2.40 L [facility] ([facility], ) Fev1-Pre 1.72 L [facility] ([facility], ) Fev1-%Pred-Pre 72 L [facility] ([facility], ) Fev6-Pred 2.99 L [facility] ([facility], ) Fev1-LLN 1.74 L [facility] ([facility]) Fev6-Pre 2.38 L [facility] ([facility]) Fev6-LLN 2.27 L [facility] ([facility]) Fev6-%Pred-Pre 79 L [facility] ([facility], ) Max4stk-Cwdz 75 % [facility] ([facility]) Ebf5gah-UQU 65 % [facility] ([facility]) Xiq6vhi-Mnh 69 % [facility] ([facility]) Mil2ytd-%Pred-Pre 91 % [facility] ([facility]) Jyt1vkf-Apul 95 % [facility] ([facility]) Esj9yqr-Tbc 95 % [facility] ([facility]) Eeg7msn-%Pred-Pre 100 % [facility] ([facility]) FEFMax-%Pred-Pre 88 L/E/sec [facility] ([facility]) FEFMax-Pre 5.09 L/E/sec [facility] ([facility]) FEFMax-Pred 5.72 L/E/sec [facility] ([facility]) Lsh5016-Thiz 1.87 L/E/sec [facility] ([facility]) FEFMax-LLN 3.90 L/E/sec [facility] ([facility]) Mue0732-Nix 1.01 L/E/sec [facility] ([facility]) Axw9634-%Pred-Pre 53 L/E/sec [facility] ([facility]) Aew4291-KOF 0.55 L/E/sec [facility] ([facility]) Ytd4eyv5-Iqdr 79 % [facility] ([facility]) ExpTime-Pre 8.98 sec [facility] ([facility]) Fvi0uje1-Pbd 72 % [facility] ([facility]) Izz1xid0-KQM 70 % [facility] ([facility]) Cqa5dif3-%Pred-Pre 91 % [facility] ([facility]) ID Date Data Source [id number] 05/07/2021 12:27:00 PM EDT [facility] ([facility]) Name Value Range Interpretation Code Description Data Violeta rce(s) Supporting Document(s) Lyme Disease IgG/IgM Antibodie Laboratory test result 0.00-0.90 [facility] <content>Negative <0.91</content >
<content>Equivocal 0.91 - 1.09</content>
<content>Positive >1.09</content>
<content></content> Lyme Disease IgM Ab Quantitati Laboratory test result 0.00-0.79 [facility] <content>Negative <0.80</content >
<content>Equivocal 0.80 - 1.19</content>
<content>Positive >1.19</content>
<content>.</content>
<content>IgM levels may peak at 3-6 weeks post infection, then</content>
<content>gradually decline.</content>
<content></content> ID Date Data Source [id number] 05/07/2021 12:27:00 PM EDT [facility] ([facility]) Name Value Range Interpretation Code Description Data Violeta rce(s) Supporting Document(s) Erythrocyte sedimentation rate by Westergren method 37 mm/hr 0-30 [facility] HLA-B27 related Ag [Presence] Laboratory test result [facility] ([facility]) HLA-B*27 Negative B27 allele interpretation for all loci based on IMGT/HLA database version 3.44 This test was developed and its performance characteristics determined by [facility]. It has not been cleared or approved by the Food and Drug Administration. [facility] CLIA ID Number [id number] . This test was performed using PCR (Polymerase Chain Reaction)/SSOP (Sequence Specific Oligonucleotide Probes) technique. SBT (Sequence Based Typing) and/or SSP (Sequence Specific Primers) may be used as supplemental methods when necessary. Please contact [facility] Customer Service at if you have any questions. . Director of [facility] Laboratory Dr Moe Maravilla, PhD C reactive protein [Mass/volume] in Serum or Plasma by High sensitivity method 1.16 mg/dL 0.00-0.30 [facility] ([facility]) ID Date Data Source [id number] 05/07/2021 12:27:00 PM EDT [facility] ([facility] ) Name Value Range Interpretation Code Description Data Violeta rce(s) Supporting Document(s) Antinuclear Antibodies Direct Laboratory test result Abnormal (applies to non- numeric results) [facility] ([facility]) Anti Double Strand-Dna AB 14 IU/ml 0-9 [facility] ([facility]) <content>Negative <5</content>
<content>Equivocal 5 - 9</content>
<content>Positive >9</content>
<content></content> Way Antibodies Laboratory test result 0.0-0.9 [facility] ([facility]) Sjogren's Anti SS-A Laboratory test result 0.0-0.9 [facility] ([facility]) PALLIATIVE CARE NURSE PRACTITIONER Antibodies 0.6 AI 0.0-0.9 [facility] ([facility]) Alan Comment Laboratory test result [facility] ([facility]) . Autoantibody Disease Association Condition Frequency -------- [...] (anti-Way) SLE 15 - 30% ------- --------- PALLIATIVE CARE NURSE PRACTITIONER Mixed Connective Tissue Disease 95% (U1 nRNP, SLE 30 - 50% anti-ribonucleoprotein) Polymyositis and/or Dermatomyositis 20% -------- --------- Scl-70 (antiDNA Scleroderma (diffuse) 20 - 35% topoisomerase) Crest 13% -------- --------- Leigh-1 Polymyositis and/or Dermatomyositis 20 - 40% -------- --------- Centromere B Scleroderma - Crest variant 80% Performed at: - [facility] [address] [id number] Manager Analysis: Breana Lacy MD, Phone: [phone] Performed at: - [facility] [id number] Manager Analysis: Moe Maravilla PhD, Phone: [phone] Sjogren's Anti SS-B Laboratory test result 0.0-0.9 [facility]) ID Date Data Source [id number] 05/07/2021 12:27:00 PM EDT [facility] ([facility]) Name Value Range Interpretation Code Description Data Violeta rce(s) Supporting Document(s) Urate [Mass/volume] in Serum or Plasma 5.6 mg/dL 2.6-6.0 [facility] ([facility] ) Rheumatoid factor [Units/volume] in Serum or Plasma Laboratory test result [facility] ([facility] ) ID Date Data Source [id number] 05/07/2021 12:27:00 PM EDT [facility] ([facility]) Name Value Range Interpretation Code Description Data Violeta rce(s) Supporting Document(s) Hemoglobin 12.4 g/dL 12.0-15.5 [facility] ([facility]) Red Blood Count 4.06 10 4.00-5.40 [facility] ([facility]) White Blood Count 11.3 10 4.0-10.0 [facility] ([facility]) Hematocrit 38.8 % 36.0-47.0 [facility] ([facility]) Mean Corpuscular Hemoglobin 30.5 pg 27.0-33.0 [facility] ([facility] ) Mean Corpuscular Volume 95.6 fl 80.0-96.0 M EDENT ([facility]) Mean Corpuscular HGB Conc 32.0 g/dL 32.0-36.5 [facility] ([facility]) Red Cell Distribution Width 14.6 % 11.5-14.5 [facility] ([facility]) Platelet Count, Automated 185 10 150-450 [facility] ([facility]) Nucleated Red Blood Cell % 0.0 % 0-0 [facility] ([facility]) ID Date Data Source [id number] 04/18/2021 12:00:00 AM EDT [facility] Name Value Range Interpretation Code Description Data Violeta rce(s) Supporting Document(s) SARS-CoV2 Rapid Antigen Negative [facility] This lab was reported by [facility]. ID Date Data Source [id number] 02/07/2021 10:45:00 AM EDT [facility] ([facility] Name Value Range Interpretation Code Description Data Violeta rce(s) Supporting Document(s) Calcidiol [Mass/volume] in Serum or Plasma 38.2 ng/mL 30.0-100.0 [facility] ([facility] Vitamin D deficiency has been defined by the Graham of Medicine and an Endocrine Society practice guideline as a level of serum 25-OH vitamin D less than 20 ng/mL (1,2). The Endocrine Society went on to further define vitamin D insufficiency as a level between 21 and 29 ng/mL (2). 1. IOM (Graham of Medicine). 2010. Di etary reference intakes for calcium and D. [place]: The National Academies Press. 2. Murali MF, Ranjit NC, Marisela hill DE LA GARZA, et al. Evaluation, treatment, and prevention of vitamin D deficiency: an Endocrine Society clinical practice guideline. JCEM. 2010; 96(7):1911-30. ID Date Data Source [id number] 02/07/2021 10:44:00 AM EDT [facility] ([facility] Name Value Range Interpretation Code Description Data Violeta rce(s) Supporting Document(s) Thyrotropin [Units/volume] in Serum or Plasma 1.136 ulU/mL 0.60-4.8 [facility] ([facility] ID Date Data Source [id number] 02/07/2021 10:41:00 AM EDT [facility] ([facility] Name Value Range Interpretation Code Description Data Violeta rce(s) Supporting Document(s) Trig 93 mg/dL 40-200 [facility] NORMAL RANGES Age WBC RBC HGB HCT [...] HCT IS 5% LESS SOURCE FOR DATA: [employer]PERATION MANUAL( AUTOMATED BLOOD COUNTS AND [...] DESIRABLE: <130 MG/DL <110 MG/DL BORDERLINE-HIGH RISK: 130- 159 MG/DL 110-129 MG/DL HIGH RISK: >160 MG/DL >130 MG/DL *CHILDREN AND ADOLESCENTS REPRESENTS INDIVIDUALA AGED 2-19 YEARS EXCLUSIVE. Chol 197 mg/dL 0-200 [facility] NORMAL RANGES Age WBC RBC HGB HCT [...] HCT IS 5% LESS SOURCE FOR DATA: [employer]PERATION MANUAL( AUTOMATED BLOOD COUNTS AND [...] DESIRABLE: <130 MG/DL <110 MG/DL BORDERLINE-HIGH RISK: 130- 159 MG/DL 110-129 MG/DL HIGH RISK: >160 MG/DL >130 MG/DL *CHILDREN AND ADOLESCENTS REPRESENTS INDIVIDUALA AGED 2-19 YEARS EXCLUSIVE. LDL_C 127 Calc 75-129 [facility] ([facility] NORMAL RANGES Age WBC RBC HGB HCT [...] HCT IS 5% LESS SOURCE FOR DATA: [employer] 1800 OPERATION MANUAL( AUTOMATED BLOOD COUNTS AND [...] DESIRABLE: <130 MG/DL <110 MG/DL BORDERLINE-HIGH RISK: 130- 159 MG/DL 110-129 MG/DL HIGH RISK: >160 MG/DL >130 MG/DL *CHILDREN AND ADOLESCENTS REPRESENTS INDIVIDUALA AGED 2-19 YEARS EXCLUSIVE. Cho/HDL Ratio 3.8 CALC [facility] ([facility] NORMAL RANGES Age WBC RBC HGB HCT [...] HCT IS 5% LESS SOURCE FOR DATA: [employer] 1800 OPERATION MANUAL( AUTOMATED BLOOD COUNTS AND [...] DESIRABLE: <130 MG/DL <110 MG/DL BORDERLINE-HIGH RISK: 130- 159 MG/DL 110-129 MG/DL HIGH RISK: >160 MG/DL >130 MG/DL *CHILDREN AND ADOLESCENTS REPRESENTS INDIVIDUALA AGED 2-19 YEARS EXCLUSIVE. Cholesterol in HDL [Mass/volume] in Serum or Plasma 52 mg/dL 45-65 [facility] ([facility] NORMAL RANGES Age WBC RBC HGB HCT [...] HCT IS 5% LESS SOURCE FOR DATA: [employer] 1800 OPERATION MANUAL( AUTOMATED BLOOD COUNTS AND [...] DESIRABLE: <130 MG/DL <110 MG/DL BORDERLINE-HIGH RISK: 130- 159 MG/DL 110-129 MG/DL HIGH RISK: >160 MG/DL >130 MG/DL *CHILDREN AND ADOLESCENTS REPRESENTS INDIVIDUALA AGED 2-19 YEARS EXCLUSIVE. ID Date Data Source [id number] 02/07/2021 10:41:00 AM EDT [facility] ([facility] Name Value Range Interpretation Code Description Data Violeta rce(s) Supporting Document(s) Glu 97 mg/dL 70-110 [facility] ([facility] NORMAL RANGES Age WBC RBC HGB HCT [...] HCT IS 5% LESS SOURCE FOR DATA: [employer] 1800 OPERATION MANUAL( AUTOMATED BLOOD COUNTS AND [...] DESIRABLE: <130 MG/DL <110 MG/DL BORDERLINE-HIGH RISK: 130- 159 MG/DL 110-129 MG/DL HIGH RISK: >160 MG/DL >130 MG/DL *CHILDREN AND ADOLESCENTS REPRESENTS INDIVIDUALA AGED 2-19 YEARS EXCLUSIVE. BUN 29 mg/dL 8-23 Above high normal [facility] ([facility] NORMAL RANGES Age WBC RBC HGB HCT [...] HCT IS 5% LESS SOURCE FOR DATA: [employer]YN 1800 OPERATION MANUAL( AUTOMATED BLOOD COUNTS AND [...] DESIRABLE: <130 MG/DL <110 MG/DL BORDERLINE-HIGH RISK: 130- 159 MG/DL 110-129 MG/DL HIGH RISK: >160 MG/DL >130 MG/DL *CHILDREN AND ADOLESCENTS REPRESENTS INDIVIDUALA AGED 2-19 YEARS EXCLUSIVE. Creat 1.1 mg/dL 0.5-1.0 Above high normal [facility] ([facility] NORMAL RANGES Age WBC RBC HGB HCT [...] HCT IS 5% LESS SOURCE FOR DATA: [employer] 1800 OPERATION MANUAL( AUTOMATED BLOOD COUNTS AND [...] DESIRABLE: <130 MG/DL <110 MG/DL BORDERLINE-HIGH RISK: 130- 159 MG/DL 110-129 MG/DL HIGH RISK: >160 MG/DL >130 MG/DL *CHILDREN AND ADOLESCENTS REPRESENTS INDIVIDUALA AGED 2-19 YEARS EXCLUSIVE. BUN/Creatinine Ratio 26.3 CALC [facility] ([facility] NORMAL RANGES Age WBC RBC HGB HCT [...] HCT IS 5% LESS SOURCE FOR DATA: [employer] 1800 OPERATION MANUAL( AUTOMATED BLOOD COUNTS AND [...] DESIRABLE: <130 MG/DL <110 MG/DL BORDERLINE-HIGH RISK: 130- 159 MG/DL 110-129 MG/DL HIGH RISK: >160 MG/DL >130 MG/DL *CHILDREN AND ADOLESCENTS REPRESENTS INDIVIDUALA AGED 2-19 YEARS EXCLUSIVE. CL 99.2 mmol/L 98.0-107.0 [facility] ([facility] NORMAL RANGES Age WBC RBC HGB HCT [...] HCT IS 5% LESS SOURCE FOR DATA: [employer] 1800 OPERATION MANUAL( AUTOMATED BLOOD COUNTS AND [...] DESIRABLE: <130 MG/DL <110 MG/DL BORDERLINE-HIGH RISK: 130- 159 MG/DL 110-129 MG/DL HIGH RISK: >160 MG/DL >130 MG/DL *CHILDREN AND ADOLESCENTS REPRESENTS INDIVIDUALA AGED 2-19 YEARS EXCLUSIVE. K 4.7 mmol/L 3.5-5.1 [facility] ([facility] NORMAL RANGES Age WBC RBC HGB HCT [...] HCT IS 5% LESS SOURCE FOR DATA: [employer] 1800 OPERATION MANUAL( AUTOMATED BLOOD COUNTS AND [...] DESIRABLE: <130 MG/DL <110 MG/DL BORDERLINE-HIGH RISK: 130- 159 MG/DL 110-129 MG/DL HIGH RISK: >160 MG/DL >130 MG/DL *CHILDREN AND ADOLESCENTS REPRESENTS INDIVIDUALA AGED 2-19 YEARS EXCLUSIVE. Na 134 mmol/L 136-145 Below low normal [facility] ( [facility] NORMAL RANGES Age WBC RBC HGB HCT [...] HCT IS 5% LESS SOURCE FOR DATA: [employer] 1800 OPERATION MANUAL( AUTOMATED BLOOD COUNTS AND [...] DESIRABLE: <130 MG/DL <110 MG/DL BORDERLINE-HIGH RISK: 130- 159 MG/DL 110-129 MG/DL HIGH RISK: >160 MG/DL >130 MG/DL *CHILDREN AND ADOLESCENTS REPRESENTS INDIVIDUALA AGED 2-19 YEARS EXCLUSIVE. TP 7.4 g/dL 6.6-8.7 [facility] ([facility] NORMAL RANGES Age WBC RBC HGB HCT [...] HCT IS 5% LESS SOURCE FOR DATA: [employer] 1800 OPERATION MANUAL( AUTOMATED BLOOD COUNTS AND [...] DESIRABLE: <130 MG/DL <110 MG/DL BORDERLINE-HIGH RISK: 130- 159 MG/DL 110-129 MG/DL HIGH RISK: >160 MG/DL >130 MG/DL *CHILDREN AND ADOLESCENTS REPRESENTS INDIVIDUALA AGED 2-19 YEARS EXCLUSIVE. CA 9.4 mg/dL 8.6-10.2 [facility] ([facility] NORMAL RANGES Age WBC RBC HGB HCT [...] HCT IS 5% LESS SOURCE FOR DATA: [employer] 1800 OPERATION MANUAL( AUTOMATED BLOOD COUNTS AND [...] DESIRABLE: <130 MG/DL <110 MG/DL BORDERLINE-HIGH RISK: 130- 159 MG/DL 110-129 MG/DL HIGH RISK: >160 MG/DL >130 MG/DL *CHILDREN AND ADOLESCENTS REPRESENTS INDIVIDUALA AGED 2-19 YEARS EXCLUSIVE. Co2 22.3 mmol/L 22.0-29.0 [facility] ([facility] NORMAL RANGES Age WBC RBC HGB HCT [...] HCT IS 5% LESS SOURCE FOR DATA: [employer] 1800 OPERATION MANUAL( AUTOMATED BLOOD COUNTS AND [...] DESIRABLE: <130 MG/DL <110 MG/DL BORDERLINE-HIGH RISK: 130- 159 MG/DL 110-129 MG/DL HIGH RISK: >160 MG/DL >130 MG/DL *CHILDREN AND ADOLESCENTS REPRESENTS INDIVIDUALA AGED 2-19 YEARS EXCLUSIVE. Alb 4.4 g/dL 3.4-4.8 [facility] ([facility] NORMAL RANGES Age WBC RBC HGB HCT [...] HCT IS 5% LESS SOURCE FOR DATA: [employer] 1800 OPERATION MANUAL( AUTOMATED BLOOD COUNTS AND [...] DESIRABLE: <130 MG/DL <110 MG/DL BORDERLINE-HIGH RISK: 130- 159 MG/DL 110-129 MG/DL HIGH RISK: >160 MG/DL >130 MG/DL *CHILDREN AND ADOLESCENTS REPRESENTS INDIVIDUALA AGED 2-19 YEARS EXCLUSIVE. Globulin 3.0 CALC [facility] ([facility] NORMAL RANGES Age WBC RBC HGB HCT [...] HCT IS 5% LESS SOURCE FOR DATA: [employer] 1800 OPERATION MANUAL( AUTOMATED BLOOD COUNTS AND [...] DESIRABLE: <130 MG/DL <110 MG/DL BORDERLINE-HIGH RISK: 130- 159 MG/DL 110-129 MG/DL HIGH RISK: >160 MG/DL >130 MG/DL *CHILDREN AND ADOLESCENTS REPRESENTS INDIVIDUALA AGED 2-19 YEARS EXCLUSIVE. A/G Ratio 1.5 CALC [facility] ([facility] NORMAL RANGES Age WBC RBC HGB HCT [...] HCT IS 5% LESS SOURCE FOR DATA: [employer] 1800 OPERATION MANUAL( AUTOMATED BLOOD COUNTS AND [...] DESIRABLE: <130 MG/DL <110 MG/DL BORDERLINE-HIGH RISK: 130- 159 MG/DL 110-129 MG/DL HIGH RISK: >160 MG/DL >130 MG/DL *CHILDREN AND ADOLESCENTS REPRESENTS INDIVIDUALA AGED 2-19 YEARS EXCLUSIVE. Alt (SGPT) 16 U/L 0-41 [facility] ([facility] NORMAL RANGES Age WBC RBC HGB HCT [...] HCT IS 5% LESS SOURCE FOR DATA: [employer] 1800 OPERATION MANUAL( AUTOMATED BLOOD COUNTS AND [...] DESIRABLE: <130 MG/DL <110 MG/DL BORDERLINE-HIGH RISK: 130- 159 MG/DL 110-129 MG/DL HIGH RISK: >160 MG/DL >130 MG/DL *CHILDREN AND ADOLESCENTS REPRESENTS INDIVIDUALA AGED 2-19 YEARS EXCLUSIVE. Ast (Sgot) 19 U/L 0-40 [facility] ([facility] NORMAL RANGES Age WBC RBC HGB HCT [...] HCT IS 5% LESS SOURCE FOR DATA: [employer] 1800 OPERATION MANUAL( AUTOMATED BLOOD COUNTS AND [...] DESIRABLE: <130 MG/DL <110 MG/DL BORDERLINE-HIGH RISK: 130- 159 MG/DL 110-129 MG/DL HIGH RISK: >160 MG/DL >130 MG/DL *CHILDREN AND ADOLESCENTS REPRESENTS INDIVIDUALA AGED 2-19 YEARS EXCLUSIVE. Alp 65.2 U/L 35-129 [facility] NORMAL RANGES Age WBC RBC HGB HCT [...] HCT IS 5% LESS SOURCE FOR DATA: [employer] 1800 OPERATION MANUAL( AUTOMATED BLOOD COUNTS AND [...] DESIRABLE: <130 MG/DL <110 MG/DL BORDERLINE-HIGH RISK: 130- 159 MG/DL 110-129 MG/DL HIGH RISK: >160 MG/DL >130 MG/DL *CHILDREN AND ADOLESCENTS REPRESENTS INDIVIDUALA AGED 2-19 YEARS EXCLUSIVE. Anion Gap 17 mmol/L [facility] NORMAL RANGES Age WBC RBC HGB HCT [...] HCT IS 5% LESS SOURCE FOR DATA: [employer] 1800 OPERATION MANUAL( AUTOMATED BLOOD COUNTS AND [...] DESIRABLE: <130 MG/DL <110 MG/DL BORDERLINE-HIGH RISK: 130- 159 MG/DL 110-129 MG/DL HIGH RISK: >160 MG/DL >130 MG/DL *CHILDREN AND ADOLESCENTS REPRESENTS INDIVIDUALA AGED 2-19 YEARS EXCLUSIVE. Tbili 0.33 mg/dL 0.0-1.2 [facility] ([facility] NORMAL RANGES Age WBC RBC HGB HCT [...] HCT IS 5% LESS SOURCE FOR DATA: [employer] 1800 OPERATION MANUAL( AUTOMATED BLOOD COUNTS AND [...] DESIRABLE: <130 MG/DL <110 MG/DL BORDERLINE-HIGH RISK: 130- 159 MG/DL 110-129 MG/DL HIGH RISK: >160 MG/DL >130 MG/DL *CHILDREN AND ADOLESCENTS REPRESENTS INDIVIDUALA AGED 2-19 YEARS EXCLUSIVE. Osmolality-Calculated 273.9 CALC [facility] ([facility] NORMAL RANGES Age WBC RBC HGB HCT [...] HCT IS 5% LESS SOURCE FOR DATA: [employer]RIAN [employer] 1800 OPERATION MANUAL( AUTOMATED BLOOD COUNTS AND [...] DESIRABLE: <130 MG/DL <110 MG/DL BORDERLINE-HIGH RISK: 130- 159 MG/DL 110-129 MG/DL HIGH RISK: >160 MG/DL >130 MG/DL *CHILDREN AND ADOLESCENTS REPRESENTS INDIVIDUALA AGED 2-19 YEARS EXCLUSIVE. eGFR 58 # [facility] ( [facility] NORMAL RANGES Age WBC RBC HGB HCT [...] HCT IS 5% LESS SOURCE FOR DATA: [employer] 1800 OPERATION MANUAL( AUTOMATED BLOOD COUNTS AND [...] DESIRABLE: <130 MG/DL <110 MG/DL BORDERLINE-HIGH RISK: 130- 159 MG/DL 110-129 MG/DL HIGH RISK: >160 MG/DL >130 MG/DL *CHILDREN AND ADOLESCENTS REPRESENTS INDIVIDUALA AGED 2-19 YEARS EXCLUSIVE. eGFR Non-Afr. Guyanese 50 # [facility] ([facility] NORMAL RANGES Age WBC RBC HGB HCT [...] HCT IS 5% LESS SOURCE FOR DATA: [employer] 1800 OPERATION MANUAL( AUTOMATED BLOOD COUNTS AND [...] DESIRABLE: <130 MG/DL <110 MG/DL BORDERLINE-HIGH RISK: 130- 159 MG/DL 110-129 MG/DL HIGH RISK: >160 MG/DL >130 MG/DL *CHILDREN AND ADOLESCENTS REPRESENTS INDIVIDUALA AGED 2-19 YEARS EXCLUSIVE. ID Date Data Source [id number] 02/07/2021 10:41:00 AM EDT [facility] ([facility] Name Value Range Interpretation Code Description Data Violeta rce(s) Supporting Document(s) WBC 6.7 10E3/uL 4.1-10.9 [facility] ([facility] NORMAL RANGES Age WBC RBC HGB HCT [...] HCT IS 5% LESS SOURCE FOR DATA: [employer] 1800 OPERATION MANUAL( AUTOMATED BLOOD COUNTS AND [...] DESIRABLE: <130 MG/DL <110 MG/DL BORDERLINE-HIGH RISK: 130- 159 MG/DL 110-129 MG/DL HIGH RISK: >160 MG/DL >130 MG/DL *CHILDREN AND ADOLESCENTS REPRESENTS INDIVIDUALA AGED 2-19 YEARS EXCLUSIVE. RBC 4.51 10E6/uL 4.20-6.30 [facility] ([facility] NORMAL RANGES Age WBC RBC HGB HCT [...] HCT IS 5% LESS SOURCE FOR DATA: [employer] 1800 OPERATION MANUAL( AUTOMATED BLOOD COUNTS AND [...] DESIRABLE: <130 MG/DL <110 MG/DL BORDERLINE-HIGH RISK: 130- 159 MG/DL 110-129 MG/DL HIGH RISK: >160 MG/DL >130 MG/DL *CHILDREN AND ADOLESCENTS REPRESENTS INDIVIDUALA AGED 2-19 YEARS EXCLUSIVE. HGB 13.6 g/dL 12.0-18.0 [facility] ([facility] NORMAL RANGES Age WBC RBC HGB HCT [...] HCT IS 5% LESS SOURCE FOR DATA: [employer] 1800 OPERATION MANUAL( AUTOMATED BLOOD COUNTS AND [...] DESIRABLE: <130 MG/DL <110 MG/DL BORDERLINE-HIGH RISK: 130- 159 MG/DL 110-129 MG/DL HIGH RISK: >160 MG/DL >130 MG/DL *CHILDREN AND ADOLESCENTS REPRESENTS INDIVIDUALA AGED 2-19 YEARS EXCLUSIVE. MCV 91.1 fL 80.0-97.0 [facility] ([facility] NORMAL RANGES Age WBC RBC HGB HCT [...] HCT IS 5% LESS SOURCE FOR DATA: [employer] DYN 1800 OPERATION MANUAL( AUTOMATED BLOOD COUNTS AND [...] DESIRABLE: <130 MG/DL <110 MG/DL BORDERLINE-HIGH RISK: 130- 159 MG/DL 110-129 MG/DL HIGH RISK: >160 MG/DL >130 MG/DL *CHILDREN AND ADOLESCENTS REPRESENTS INDIVIDUALA AGED 2-19 YEARS EXCLUSIVE. HCT 41.1 % 37.0-51.0 [facility] ([facility] NORMAL RANGES Age WBC RBC HGB HCT [...] HCT IS 5% LESS SOURCE FOR DATA: [employer] 1800 OPERATION MANUAL( AUTOMATED BLOOD COUNTS AND [...] DESIRABLE: <130 MG/DL <110 MG/DL BORDERLINE-HIGH RISK: 130- 159 MG/DL 110-129 MG/DL HIGH RISK: >160 MG/DL >130 MG/DL *CHILDREN AND ADOLESCENTS REPRESENTS INDIVIDUALA AGED 2-19 YEARS EXCLUSIVE. MCH 30.2 pg 26.0-32.0 [facility] ([facility] NORMAL RANGES Age WBC RBC HGB HCT [...] HCT IS 5% LESS SOURCE FOR DATA: [employer] 1800 OPERATION MANUAL( AUTOMATED BLOOD COUNTS AND [...] DESIRABLE: <130 MG/DL <110 MG/DL BORDERLINE-HIGH RISK: 130- 159 MG/DL 110-129 MG/DL HIGH RISK: >160 MG/DL >130 MG/DL *CHILDREN AND ADOLESCENTS REPRESENTS INDIVIDUALA AGED 2-19 YEARS EXCLUSIVE. PLT 280 10E3/uL 140-440 [facility] ([facility] NORMAL RANGES Age WBC RBC HGB HCT [...] HCT IS 5% LESS SOURCE FOR DATA: [employer] 1800 OPERATION MANUAL( AUTOMATED BLOOD COUNTS AND [...] DESIRABLE: <130 MG/DL <110 MG/DL BORDERLINE-HIGH RISK: 130- 159 MG/DL 110-129 MG/DL HIGH RISK: >160 MG/DL >130 MG/DL *CHILDREN AND ADOLESCENTS REPRESENTS INDIVIDUALA AGED 2-19 YEARS EXCLUSIVE. MCHC 33.1 g/dL 31.0-36.0 [facility] ([facility] NORMAL RANGES Age WBC RBC HGB HCT [...] HCT IS 5% LESS SOURCE FOR DATA: [employer] 1800 OPERATION MANUAL( AUTOMATED BLOOD COUNTS AND [...] DESIRABLE: <130 MG/DL <110 MG/DL BORDERLINE-HIGH RISK: 130- 159 MG/DL 110-129 MG/DL HIGH RISK: >160 MG/DL >130 MG/DL *CHILDREN AND ADOLESCENTS REPRESENTS INDIVIDUALA AGED 2-19 YEARS EXCLUSIVE. RDW-CV 13.0 % 11.5-14.5 [facility] NORMAL RANGES Age WBC RBC HGB HCT [...] HCT IS 5% LESS SOURCE FOR DATA: [employer] 1800 OPERATION MANUAL( AUTOMATED BLOOD COUNTS AND [...] DESIRABLE: <130 MG/DL <110 MG/DL BORDERLINE-HIGH RISK: 130- 159 MG/DL 110-129 MG/DL HIGH RISK: >160 MG/DL >130 MG/DL *CHILDREN AND ADOLESCENTS REPRESENTS INDIVIDUALA AGED 2-19 YEARS EXCLUSIVE. Lym% 29.7 % 10.0-58.5 [facility] ([facility] NORMAL RANGES Age WBC RBC HGB HCT [...] HCT IS 5% LESS SOURCE FOR DATA: [employer] 1800 OPERATION MANUAL( AUTOMATED BLOOD COUNTS AND [...] DESIRABLE: <130 MG/DL <110 MG/DL BORDERLINE-HIGH RISK: 130- 159 MG/DL 110-129 MG/DL HIGH RISK: >160 MG/DL >130 MG/DL *CHILDREN AND ADOLESCENTS REPRESENTS INDIVIDUALA AGED 2-19 YEARS EXCLUSIVE. Neut% 55.7 % 37.0-92.0 [facility] ([facility] NORMAL RANGES Age WBC RBC HGB HCT [...] HCT IS 5% LESS SOURCE FOR DATA: [employer] 1800 OPERATION MANUAL( AUTOMATED BLOOD COUNTS AND [...] DESIRABLE: <130 MG/DL <110 MG/DL BORDERLINE-HIGH RISK: 130- 159 MG/DL 110-129 MG/DL HIGH RISK: >160 MG/DL >130 MG/DL *CHILDREN AND ADOLESCENTS REPRESENTS INDIVIDUALA AGED 2-19 YEARS EXCLUSIVE. MXD% 14.6 % 0.1-24.0 [facility] ([facility] NORMAL RANGES Age WBC RBC HGB HCT [...] HCT IS 5% LESS SOURCE FOR DATA: [employer] 1800 OPERATION MANUAL( AUTOMATED BLOOD COUNTS AND [...] DESIRABLE: <130 MG/DL <110 MG/DL BORDERLINE-HIGH RISK: 130- 159 MG/DL 110-129 MG/DL HIGH RISK: >160 MG/DL >130 MG/DL *CHILDREN AND ADOLESCENTS REPRESENTS INDIVIDUALA AGED 2-19 YEARS EXCLUSIVE. MXD# 1.0 10E3/uL 0.0-1.8 [facility] ([facility] NORMAL RANGES Age WBC RBC HGB HCT [...] HCT IS 5% LESS SOURCE FOR DATA: [employer] 1800 OPERATION MANUAL( AUTOMATED BLOOD COUNTS AND [...] DESIRABLE: <130 MG/DL <110 MG/DL BORDERLINE-HIGH RISK: 130- 159 MG/DL 110-129 MG/DL HIGH RISK: >160 MG/DL >130 MG/DL *CHILDREN AND ADOLESCENTS REPRESENTS INDIVIDUALA AGED 2-19 YEARS EXCLUSIVE. Lym# 2.0 10E3/uL 0.6-4.1 [facility] ([facility] NORMAL RANGES Age WBC RBC HGB HCT [...] HCT IS 5% LESS SOURCE FOR DATA: [employer] 1800 OPERATION MANUAL( AUTOMATED BLOOD COUNTS AND [...] DESIRABLE: <130 MG/DL <110 MG/DL BORDERLINE-HIGH RISK: 130- 159 MG/DL 110-129 MG/DL HIGH RISK: >160 MG/DL >130 MG/DL *CHILDREN AND ADOLESCENTS REPRESENTS INDIVIDUALA AGED 2-19 YEARS EXCLUSIVE. Neut# 3.7 % 2.0-7.8 [facility] ([facility] NORMAL RANGES Age WBC RBC HGB HCT [...] HCT IS 5% LESS SOURCE FOR DATA: [employer] 1800 OPERATION MANUAL( AUTOMATED BLOOD COUNTS AND [...] DESIRABLE: <130 MG/DL <110 MG/DL BORDERLINE-HIGH RISK: 130- 159 MG/DL 110-129 MG/DL HIGH RISK: >160 MG/DL >130 MG/DL *CHILDREN AND ADOLESCENTS REPRESENTS INDIVIDUALA AGED 2-19 YEARS EXCLUSIVE. MPV 10.3 fL 9.0-13.0 [facility] ([facility] NORMAL RANGES Age WBC RBC HGB HCT [...] HCT IS 5% LESS SOURCE FOR DATA: [employer] 1800 OPERATION MANUAL( AUTOMATED BLOOD COUNTS AND [...] DESIRABLE: <130 MG/DL <110 MG/DL BORDERLINE-HIGH RISK: 130- 159 MG/DL 110-129 MG/DL HIGH RISK: >160 MG/DL >130 MG/DL *CHILDREN AND ADOLESCENTS REPRESENTS INDIVIDUALA AGED 2-19 YEARS EXCLUSIVE. Comment Laboratory test result [facility] ([facility] NORMAL RANGES Age WBC RBC HGB HCT [...] HCT IS 5% LESS SOURCE FOR DATA: [employer] 1800 OPERATION MANUAL( AUTOMATED BLOOD COUNTS AND [...] DESIRABLE: <130 MG/DL <110 MG/DL BORDERLINE-HIGH RISK: 130- 159 MG/DL 110-129 MG/DL HIGH RISK: >160 MG/DL >130 MG/DL *CHILDREN AND ADOLESCENTS REPRESENTS INDIVIDUALA AGED 2-19 YEARS EXCLUSIVE. ID Date Data Source [id number] 01/27/2021 09:49:00 AM EDT [facility] ([facility], ) Name Value Range Interpretation Code Description Data Violeta rce(s) Supporting Document(s) PDFReport Laboratory test result [facility] ([facility]) FVC-Pre 2.32 L [facility] ([facility]) FVC-Pred 3.17 L [facility] ([facility]) FVC-%Pred-Pre 73 L [facility] ([facility]) Fev1-Pred 2.40 L [facility] ([facility]) FVC-LLN 2.44 L [facility] ([facility]) Fev1-%Pred-Pre 73 L [facility] ([facility]) Fev1-LLN 1.77 L [facility] ([facility]) Fev1-Pre 1.77 L [facility] ([facility]) Fev6-%Pred-Pre 76 L [facility] ([facility]) Fev6-Pre 2.32 L [facility] ([facility]) Fev6-Pred 3.03 L [facility] ([facility]) Fev6-LLN 2.31 L [facility] ([facility]) [id number]-Zeu 76 % [facility] ([facility]) Ivj7dhj-Uwls 76 % [facility] ([facility]) Exw0wxk-Ouud 96 % [facility] ([facility]) See9nfi-ZKS 66 % [facility] ([facility]) Tms6mxf-%Pred-Pre 100 % [facility] ([facility]) Gzp7uls-Ros 100 % [facility] ([facility]) Cwe5dww-%Pred-Pre 104 % [facility] ([facility]) FEFMax-Pred 5.80 L/E/sec [facility] ([facility]) FEFMax-Pre 4.61 L/E/sec [facility] ([facility]) FEFMax-LLN 3.98 L/E/sec [facility] ([facility]) FEFMax-%Pred-Pre 79 L/E/sec [facility] ([facility]) [id number] 1.92 L/E/sec [facility] ([facility]) [id number]-Nik 1.40 L/E/sec [facility] ([facility]) Ctg9089-%Pred-Pre 72 L/E/sec [facility] ([facility]) [id number]-CWB 0.60 L/E/sec [facility] ([facility]) ExpTime-Pre 5.12 sec [facility] ([facility]) Sor5rqw3-Qaij 79 % [facility] ([facility]) Ipz4laq1-%Pred-Pre 96 % [facility] ([facility]) Ghy4mwy5-Smf 76 % [facility] ([facility]) Gaj2zhw5-NQI 70 % [facility] ([facility]) ID Date Data Source [id number] 10/28/2020 10:55:00 AM EST [facility] ([facility]) Name Value Range Interpretation Code Description Data Violeta rce(s) Supporting Document(s) Covid Rapid Testing Laboratory test result [facility] ([facility]) ID Date Data Source [id number] 10/28/2020 12:00:00 AM EST [facility] Name Value Range Interpretation Code Description Data Violeta rce(s) Supporting Document(s) Covid Rapid Testing Negative [facility] This lab was ordered by Sandi and re ported by [facility]. ID Date Data Source [id number] 09/24/2020 12:00:00 AM EST [facility] Denny Augustin Rpa Patient Name: AZAEL HUDSON[address] Rene Barnes Date of : 1950[place] [id number] Date of Exam: 09/24/2020#: Fax: [phone] EXAM: CHEST (2 VIEW) X-RAYCLINICAL INFORMATION: Chest pain and dyspnea.Two views.The latest prior for comparison is a portable examination 11/27/2019.The superior mediastinal structures are midline. The heart is notenlarged. The diaphragmatic surfaces of the lungs are regular and thecostophrenic angles are clear. The pulmonary hernandez are clear. Thevisualized osseous structures are intact.IMPRESSION:There is no acute cardiopulmonary disease.No significant change from the prior exam.ZHANG Ocampo/Alma you for referring REAL HUDSON to our office.Electronically Signed - KHOA MILLS DO 09/24/20 16:27 Name Value Range Interpretation Code Description Data Violeta rce(s) Supporting Document(s) Procedure Social History Code Duration Value Status Description Data Source(s ) Alcohol intake 08/10/2021 12:00:00 AM EST Current drinker of al cohol (finding) completed Current drinker of alcohol (finding) [facility] Smoking 07/18/2021 12:00:00 AM EDT Former Smoker completed Former Smoker [email or web address] ([facility]) Smoking 07/06/2021 12:00:00 AM EDT Former Smoker completed Former Smoker [email or web address] ([facility]) Smoking 06/23/2021 12:00:00 AM EDT Patient is a former smoker completed Patient is a former smoker [facility] ([facility], ) Smoking 06/16/2021 04:44:57 PM EDT Ex-smoker (finding) complet ed Ex-smoker (finding) [facility] (David Gaming [facility]) Alcohol intake 12/16/2020 12:00:00 AM EDT Not Currently completed [facility] Smoking 12/16/2020 12:00:00 AM EDT Former smoker completed Former smoker [facility] Alcohol intake 10/15/2020 12:00:00 AM EST Not Currently completed [facility] Smoking 10/15/2020 12:00:00 AM EST Former smoker completed Former smoker [facility] Vital Signs ID Date Data Source UNK Name Value Range Interpretation Code Description Data Source(s) Systolic blood pressure 131 mm[Hg] 131 mm[Hg] Katiana MELLO ([facility]) Heart rate 80 /min 80 /min [facility]) Oxygen saturation in Arterial blood by Pulse oximetry 96 % 96 % WIL ([facility]) Diastolic blood pressure 79 mm[Hg] 79 mm[Hg] WIL ([facility]) Body weight 214.6 [lb_av] 214.6 [lb_av] eCW1 ([facility]) Body weight 97.34 kg 97.34 kg [facility] ([facility]) Body height 66 [in_i] 66 [in_i] W1 ([facility]) Body mass index (BMI) [Ratio] 34.63 kg/m2 34.63 kg/m2 W1 ([facility]) Systolic blood pressure 118 mm[Hg] 118 mm[Hg] e CW1 ([facility]) Diastolic blood pressure 70 mm[Hg] 70 mm[Hg] eCW1 ([facility]) Systolic blood pressure 158 mm[Hg] 158 mm[Hg] Katiana MELLO ([facility]) Body height 66 [in_i] 66 [in_i] MEDENT ([facility]) 5'6" Body weight 214.38 [lb_av] 214.38 [lb_av] MEDEN T ([facility]) Body mass index (BMI) [Ratio] 34.6 kg/m2 34.6 k g/m2 [facility] ([facility]) Body temperature 96.0 [degF] 96.0 [degF] [facility] ([facility]) Diastolic blood pressure 74 mm[Hg] 74 mm[Hg] [facility] ([facility]) [place] body weight 130 [lb_av] 130 [lb_av] MED[facility] T ([facility]) Body weight 97.240 kg 97.240 kg [facility] ([facility]) Body surface area Derived from formula 2.06 m2 2.06 m2 [facility] ([facility]) Body weight 98.431 kg 98.431 kg [facility] ([facility]) Body surface area Derived from formula 2.07 m2 2.07 m2 [facility] ([facility]) Systolic blood pressure 126 mm[Hg] 126 mm[Hg] M [facility] ([facility]) Diastolic blood pressure 80 mm[Hg] 80 mm[Hg] [facility] ([facility]) Respiratory rate 20 /min 20 /min [facility] ( [facility]) Body height 66 [in_i] 66 [in_i] [facility] ([facility]) 5'6" Heart rate 103 /min 103 /min [facility] ([facility]) Oxygen saturation in Arterial blood by Pulse oximetry 91 % 91 % [facility] ([facility]) Body weight 217.00 [lb_av] 217.00 [lb_av] MED[facility] ([facility]) Body mass index (BMI) [Ratio] 35.0 kg/m2 35.0 k g/m2 [facility] ([facility]) [place] body weight 130 [lb_av] 130 [lb_av] MED[facility] T ([facility], ) Systolic blood pressure 116 mm[Hg] 116 mm[Hg] M EDENT ([facility] Diastolic blood pressure 80 mm[Hg] 80 mm[Hg] [facility] ([facility] Body temperature 97.3 [degF] 97.3 [degF] [facility] ([facility] Heart rate 97 /min 97 /min [facility] ([facility] Respiratory rate 16 /min 16 /min [facility] ( [facility] Body height 66 [in_i] 66 [in_i] [facility] ([facility] 5'6" Body weight 215.00 [lb_av] 215.00 [lb_av] MEDEN T ([facility] [place] body weight 130 [lb_av] 130 [lb_av] MED[facility] T ([facility] Body mass index (BMI) [Ratio] 34.7 kg/m2 34.7 k g/m2 [facility] ([facility] Oxygen saturation in Arterial blood by Pulse oximetry 95 % 95 % [facility] ([facility] Diastolic blood pressure 68 mm[Hg] 68 mm[Hg] [facility] ([facility], ) Heart rate 87 /min 87 /min [facility] ([facility]) Oxygen saturation in Arterial blood by Pulse oximetry 96 % 96 % [facility] ([facility], ) Systolic blood pressure 118 mm[Hg] 118 mm[Hg] [facility] Body height 66 [in_i] 66 [in_i] [facility] ([facility]) 5'6" Body weight 226.00 [lb_av] 226.00 [lb_av] MED[facility] T ([facility]) Body mass index (BMI) [Ratio] 36.5 kg/m2 36.5 k g/m2 [facility] ([facility]) [place] body weight 130 [lb_av] 130 [lb_av] [facility] ([facility], ) Body weight 102.514 kg 102.514 kg [facility] ([facility], ) Body surface area Derived from formula 2.11 m2 2.11 m2 [facility] ([facility], ) Body mass index (BMI) [Ratio] 35.2 kg/m2 35.2 k g/m2 [facility] ([facility] Oxygen saturation in Arterial blood by Pulse oximetry 95 % 95 % [facility] ([facility] Systolic blood pressure 110 mm[Hg] 110 mm[Hg] M EDENT ([facility] Diastolic blood pressure 50 mm[Hg] 50 mm[Hg] [facility] ([facility] Body temperature 97.2 [degF] 97.2 [degF] [facility] ([facility] Heart rate 114 /min 114 /min [facility] ([facility] Respiratory rate 24 /min 24 /min [facility] ( [facility] Body height 66 [in_i] 66 [in_i] [facility] ([facility] 5'6" Body weight 218.00 [lb_av] 218.00 [lb_av] [facility] T ([facility] [place] body weight 130 [lb_av] 130 [lb_av] [facility] ([facility] Body temperature 97.7 [degF] 97.7 [degF] [facility] ([facility] Heart rate 114 /min 114 /min [facility] ([facility] Body weight 218.00 [lb_av] 218.00 [lb_av] [facility] ([facility] [place] body weight 130 [lb_av] 130 [lb_av] [facility] ([facility] Systolic blood pressure 128 mm[Hg] 128 mm[Hg] M EDENT ([facility] Diastolic blood pressure 84 mm[Hg] 84 mm[Hg] [facility] ([facility] Respiratory rate 22 /min 22 /min [facility] ( [facility] Labored Body height 66 [in_i] 66 [in_i] [facility] ([facility] 5'6" Body mass index (BMI) [Ratio] 35.2 kg/m2 35.2 k g/m2 [facility] ([facility] Oxygen saturation in Arterial blood by Pulse oximetry 96 % 96 % [facility] ([facility] (Room Air), (With Exertion) Diastolic blood pressure 70 mm[Hg] 70 mm[Hg] [facility] ([facility] Systolic blood pressure 122 mm[Hg] 122 mm[Hg] M RIAZ ([facility] Body temperature 98.5 [degF] 98.5 [degF] [facility] ([facility] Heart rate 107 /min 107 /min [facility] ([facility] Respiratory rate 18 /min 18 /min [facility] ( [facility] Body height 66 [in_i] 66 [in_i] [facility] ([facility] 5'6" Body weight 218.00 [lb_av] 218.00 [lb_av] MED[facility] T ([facility] [place] body weight 130 [lb_av] 130 [lb_av] MED[facility] T ([facility] Body mass index (BMI) [Ratio] 35.2 kg/m2 35.2 k g/m2 [facility] ([facility] Oxygen saturation in Arterial blood by Pulse oximetry 95 % 95 % [facility] ([facility] Body mass index (BMI) [Ratio] 37.2 kg/m2 37.2 k g/m2 [facility] ([facility] ) Body temperature 96.0 [degF] 96.0 [degF] [facility] ([facility] ) Body height 64.25 [in_i] 64.25 [in_i] [facility] ([facility] ) 5'4.25" Body weight 218.25 [lb_av] 218.25 [lb_av] MED[facility] T ([facility] ) Systolic blood pressure 160 mm[Hg] 160 mm[Hg] M RIAZ ([facility], ) Body weight 223.00 [lb_av] 223.00 [lb_av] [facility] T ([facility]) Oxygen saturation in Arterial blood by Pulse oximetry 97 % 97 % [facility] ([facility]) Body height 66 [in_i] 66 [in_i] [facility] ([facility]) 5'6" Diastolic blood pressure 80 mm[Hg] 80 mm[Hg] [facility] ([facility]) Heart rate 90 /min 90 /min [facility] ([facility]) Body mass index (BMI) [Ratio] 36.0 kg/m2 36.0 k g/m2 [facility] ([facility]) [place] body weight 130 [lb_av] 130 [lb_av] [facility] ([facility]) Body weight 101.153 kg 101.153 kg [facility] ([facility]) Body surface area Derived from formula 2.09 m2 2.09 m2 [facility] ([facility]) Oxygen saturation in Arterial blood by Pulse oximetry 97 % 97 % [facility] ([facility]) Body weight 101.153 kg 101.153 kg [facility] ([facility]) Body height 66 [in_i] 66 [in_i] [facility] ([facility]) 5'6" Body weight 223.00 [lb_av] 223.00 [lb_av] [facility] ([facility]) Body mass index (BMI) [Ratio] 36.0 kg/m2 36.0 k g/m2 [facility] ([facility]) [place] body weight 130 [lb_av] 130 [lb_av] [facility] ([facility]) Body surface area Derived from formula 2.09 m2 2.09 m2 [facility] ([facility]) [place] body weight 130 [lb_av] 130 [lb_av] [facility] ([facility]) Body weight 102.514 kg 102.514 kg [facility] ([facility]) Systolic blood pressure 120 mm[Hg] 120 mm[Hg] M EDENT ([facility]) Diastolic blood pressure 60 mm[Hg] 60 mm[Hg] [facility] Heart rate 98 /min 98 /min [facility] ([facility]) Oxygen saturation in Arterial blood by Pulse oximetry 98 % 98 % [facility] ([facility]) Body height 66 [in_i] 66 [in_i] [facility] ([facility]) 5'6" Body weight 226.00 [lb_av] 226.00 [lb_av] [facility] ([facility]) Body mass index (BMI) [Ratio] 36.5 kg/m2 36.5 k g/m2 [facility] ([facility]) Body surface area Derived from formula 2.11 m2 2.11 m2 [facility] ([facility]) Systolic blood pressure 134 mm[Hg] 134 mm[Hg] M EDENT ([facility]) Diastolic blood pressure 80 mm[Hg] 80 mm[Hg] [facility] Body weight 215.00 [lb_av] 215.00 [lb_av] [facility] T ([facility]) Respiratory rate 16 /min 16 /min [facility] ( [facility] Systolic blood pressure 114 mm[Hg] 114 mm[Hg] M EDENT ([facility] Diastolic blood pressure 72 mm[Hg] 72 mm[Hg] [facility] ([facility] Body height 66 [in_i] 66 [in_i] [facility] ([facility] 5'6" Oxygen saturation in Arterial blood by Pulse oximetry 96 % 96 % [facility] ([facility] Body temperature 97.2 [degF] 97.2 [degF] [facility] ([facility] Heart rate 64 /min 64 /min [facility] ([facility] Body weight 217.00 [lb_av] 217.00 [lb_av] [facility] T ([facility] [place] body weight 130 [lb_av] 130 [lb_av] [facility] ([facility] Body mass index (BMI) [Ratio] 35.0 kg/m2 35.0 k g/m2 [facility] ([facility] Body height 66 [in_i] 66 [in_i] [facility] ([facility], ) 5'6" Systolic blood pressure 128 mm[Hg] 128 mm[Hg] M EDENT ([facility], ) Diastolic blood pressure 76 mm[Hg] 76 mm[Hg] [facility] ([facility]) Heart rate 93 /min 93 /min [facility] ([facility], ) Oxygen saturation in Arterial blood by Pulse oximetry 96 % 96 % [facility] ([facility]) Body weight 218.00 [lb_av] 218.00 [lb_av] [facility] Body mass index (BMI) [Ratio] 35.2 kg/m2 35.2 k g/m2 [facility] ([facility]) [place] body weight 130 [lb_av] 130 [lb_av] [facility] Body weight 98.885 kg 98.885 kg [facility] ([facility]) Body surface area Derived from formula 2.07 m2 2.07 m2 [facility] ([facility]) Systolic blood pressure 130 mm[Hg] 130 mm[Hg] [facility] Diastolic blood pressure 80 mm[Hg] 80 mm[Hg] [facility] Heart rate 88 /min 88 /min [facility] Respiratory rate 16 /min 16 /min [facility] Body height 167.6 cm 167.6 cm [facility] Body weight 99.791 kg 99.791 kg [facility] Body mass index (BMI) [Ratio] 35.51 kg/m2 35.51 kg/m2 [facility] Body temperature 97.3 [degF] 97.3 [degF] [facility] ([facility]) Body temperature 97.3 [degF] 97.3 [degF] [facility] ([facility] Heart rate 99 /min 99 /min [facility] ([facility] Respiratory rate 16 /min 16 /min [facility] ( [facility] Body height 66 [in_i] 66 [in_i] WIL ([facility] 5'6" Oxygen saturation in Arterial blood by Pulse oximetry 96 % 96 % [facility] ([facility] Systolic blood pressure 116 mm[Hg] 116 mm[Hg] M RIAZ ([facility] Diastolic blood pressure 72 mm[Hg] 72 mm[Hg] [facility] ([facility] Body weight 211.00 [lb_av] 211.00 [lb_av] [facility] ([facility] [place] body weight 130 [lb_av] 130 [lb_av] [facility] ([facility] Body mass index (BMI) [Ratio] 34.1 kg/m2 34.1 k g/m2 [facility] ([facility] Body temperature 96.6 [degF] 96.6 [degF] [facility] ([facility]) Diastolic blood pressure 74 mm[Hg] 74 mm[Hg] [facility] Heart rate 89 /min 89 /min [facility] Body height 167.6 cm 167.6 cm [facility] Body weight 96.163 kg 96.163 kg [facility] Body mass index (BMI) [Ratio] 34.22 kg/m2 34.22 kg/m2 [facility] Oxygen saturation in Arterial blood by Pulse oximetry 96 % 96 % [facility] Systolic blood pressure 118 mm[Hg] 118 mm[Hg] [facility] Systolic blood pressure 130 mm[Hg] 130 mm[Hg] M EDENT ([facility] Body weight 213.00 [lb_av] 213.00 [lb_av] [facility] T ([facility] [place] body weight 130 [lb_av] 130 [lb_av] [facility] ([facility] Body mass index (BMI) [Ratio] 34.4 kg/m2 34.4 k g/m2 [facility] ([facility] Oxygen saturation in Arterial blood by Pulse oximetry 96 % 96 % [facility] ([facility] Diastolic blood pressure 80 mm[Hg] 80 mm[Hg] [facility] ([facility] Body temperature 97.2 [degF] 97.2 [degF] [facility] ([facility] Heart rate 91 /min 91 /min [facility] ([facility] Respiratory rate 20 /min 20 /min [facility] ( [facility] Body height 66 [in_i] 66 [in_i] [facility] ([facility] 5'6" Body temperature 96.6 [degF] 96.6 [degF] [facility] ([facility]) Body weight 209.00 [lb_av] 209.00 [lb_av] [facility] T ([facility] [place] body weight 130 [lb_av] 130 [lb_av] [facility] ([facility] Systolic blood pressure 124 mm[Hg] 124 mm[Hg] M EDENT ([facility] Diastolic blood pressure 60 mm[Hg] 60 mm[Hg] [facility] ([facility] Body temperature 97.3 [degF] 97.3 [degF] [facility] ([facility] Heart rate 84 /min 84 /min [facility] ([facility] Respiratory rate 18 /min 18 /min [facility] ( [facility] Body height 66 [in_i] 66 [in_i] [facility] ([facility] 5'6" Body mass index (BMI) [Ratio] 33.7 kg/m2 33.7 k g/m2 [facility] ([facility] Oxygen saturation in Arterial blood by Pulse oximetry 98 % 98 % [facility] ([facility] Patient Treatment Plan of Care Planned Activity Planned Date Details Description Data Source (s) Nystatin 059048 UNT/ML Topical Cream 07/18/2021 12:00:00 AM EDT [email or web address] ([facility]) Losartan Potassium 50 MG Oral Tablet 06/27/2021 12:00:00 AM EDT [facility] 120 ACTUAT Fluticasone propionate 0.115 MG/ACTUAT / salmeterol 0.021 MG/ACTUAT Metered Dose Inhaler [Advair] 06/18/2021 12:00:00 AM EDT [facility] Albuterol Sulfate HFA 108 (90 Base) MCG/ ACT Inhalation Aerosol Solution (PROVENTIL HFA) 02/21/2021 12:00:00 AM EDT [facility] Hydrochlorothiazide 12.5 MG Oral Tablet 12/16/2020 12:00:00 AM EDT [facility] Acetaminophen 325 MG / Hydrocodone Bitartrate 5 MG Ora l Tablet 11/19/2020 12:00:00 [facility] Hydrochlorothiazide 25 MG Oral Tablet 10/15/2020 12:00:00 AM [facility] Losartan Potassium 50 MG Oral Tablet 07/04/2020 12:00:00 AM EDT [facility] Hydrochlorothiazide 12.5 MG Oral Tablet 07/04/2020 12:00:00 AM EDT [facility] 0.5 ML Streptococcus pneumoniae serotype 1 capsular antigen diphtheria [id number] protein conjugate vaccine 0.0044 MG/ML / Streptococcus pneumoniae serotype 14 capsular antigen diphtheria [id number] protein conjugate vaccine 0.0044 MG/ML / Streptococcus pneumonia 10/04/2017 12:00:00 AM [facility] gabapentin 300 MG Oral Capsule [facility]
[2021-08-28] MEDS ORDERED: METOPROLOL 5 MG/5 ML VIAL As Ordered ONE (13:13)
[2021-08-28] MEDS ORDERED: LIDOCAINE 2% 100MG/5ML SDV (FOR ANES.) As Ordered ONE (13:14)
[2021-08-28] MEDS ORDERED: propofoL 200 MG/20 ML VIAL As Ordered ONE ×2 (13:14→14:07)
--- NOTE | 2021-08-28 13:32 | ROOR ---
Patient Name: Ary Navarrete Procedure Date: 08/28/2021 1:11 PM Date of : 1950 Age: 71 [facility] Gender: Female Note Status: Finalized Procedure: Colonoscopy Indications: Screening for colorectal malignant neoplasm Providers: Jacob Jacobs Jr, MD Referring MD: BARBARA PADGETT Requesting Provider: Medicines: Propofol per Anesthesia Complications: No immediate complications. Procedure: Pre-Anesthesia Assessment: - Prior to the procedure, a History and Physical was performed, and patient medications and allergies were reviewed. The patient is competent. The risks and benefits of the procedure and the sedation options and risks were discussed with the patient. All questions were answered and informed consent was obtained. Patient identification and proposed procedure were verified by the physician and the nurse in the pre-procedure area and in the procedure room. Mental Status Examination: alert and oriented. Airway Examination: normal oropharyngeal airway and neck mobility. Respiratory Examination: clear to auscultation. CV Examination: normal. ASA Grade Assessment: II - A patient with mild systemic disease. After reviewing the risks and benefits, the patient was deemed in satisfactory condition to undergo the procedure. The anesthesia plan was to use moderate sedation / analgesia (conscious sedation). Immediately prior to administration of medications, the patient was re-assessed for adequacy to receive sedatives. The heart rate, respiratory rate, oxygen saturations, blood pressure, adequacy of pulmonary ventilation, and response to care were monitored throughout the procedure. The physical status of the patient was re-assessed after the procedure. The Colonoscope was introduced through the anus and advanced to the cecum, identified by appendiceal orifice and ileocecal valve. The colonoscopy was performed without difficulty. The patient tolerated the procedure well. The quality of the bowel preparation was adequate. Findings: The rectum, recto-sigmoid colon, descending colon, transverse colon, cecum, appendiceal orifice and ileocecal valve appeared normal. Multiple small-mouthed diverticula were found in the sigmoid colon. A small polyp was found in the ascending colon. The polyp was removed with a hot snare. Resection and retrieval were complete. Impression: - The rectum, recto-sigmoid colon, descending colon, transverse colon, cecum, appendiceal orifice and ileocecal valve are normal. - Diverticulosis in the sigmoid colon. - One small polyp in the ascending colon, removed with a hot snare. Resected and retrieved. Recommendation: - Discharge patient to home (ambulatory). - Repeat colonoscopy in 5 years for surveillance. Procedure Code(s): --- Professional --- 12591, Colonoscopy, flexible; with removal of tumor(s), polyp(s), or other lesion(s) by snare technique Diagnosis Code(s): --- Professional --- Z12.11, Encounter for screening for malignant neoplasm of colon K63.5, Polyp of colon K57.30, Diverticulosis of large intestine without perforation or abscess without bleeding CPT copyright 2019 [employer]. All rights reserved. The codes documented in this report are preliminary and upon bodily injury adjuster review may be revised to meet current compliance requirements. Jacob Jacobs MD Jacob Jacobs Jr, MD 08/28/2021 1:32:05 PM Electronically signed by Jacob Jacobs Jr, MD Number of Addenda: 0 Note Initiated On: 08/28/2021 1:11 PM Estimated Blood Loss: Estimated blood loss: none.
[2021-08-28 14:00] VITALS: BP 112/56
== END 2021-08-28 14:21 | disposition home or self-care (01) ==
LOC: M OPP 12:17
PROVIDERS: ATTEND Surgery
DX: D12.2 Benign neoplasm of ascending colon (principal); K57.30 Diverticulosis of large intestine without perforation or abscess without bleeding; I10 Essential (primary) hypertension; J45.909 Unspecified asthma, uncomplicated; F41.9 Anxiety disorder, unspecified; Z12.11 Encounter for screening for malignant neoplasm of colon; Z88.2 Allergy status to sulfonamides; Z91.040 Latex allergy status; Z91.048 Other nonmedicinal substance allergy status; Z79.899 Other long term (current) drug therapy

== ENCOUNTER → 2021-12-02 | Outpatient (REF) | payer MEDICARE ==
[~2021-12-02] MED LIST changes: -D31000TA2 PO; +LOSA50TA28; -LOSA50TA88; -NS 1,000 ML IV ONE; +VITA100093 PO
[2021-12-02 17:57] LABS: BASO # 0.1 10^3/uL (0.0-0.2); BASO % 1.1 % (0.0-1.0); EOS # 0.7 10^3/uL (0.0-0.5); EOS % 6.9 % (0.0-3.0); HEMOGLOBIN 13.9 g/dl (12.0-15.5); LYMPH # 2.5 10^3/uL (1.5-5.0); LYMPH % 23.9 % (24.0-44.0); MEAN CORPUSCULAR HEMOGLOBIN 29.6 pg (27.0-33.0); MEAN CORPUSCULAR HGB CONC 32.3 g/dl (32.0-36.5); MEAN CORPUSCULAR VOLUME 91.5 fl (80.0-96.0); MONO # 0.8 10^3/uL (0.0-0.8); MONO % 7.9 % (2.0-8.0); NEUTROPHILS # 6.2 10^3/uL (1.5-8.5); NEUTROPHILS % 59.9 % (36.0-66.0); PLATELET COUNT, AUTOMATED 302 10^3/uL (150-450); WHITE BLOOD COUNT 10.4 10^3/uL (4.0-10.0)
[2021-12-02 18:23] LABS: PHOSPHORUS LEVEL 4.2 MG/DL (2.5-4.9)
[2021-12-02 18:34] LABS: TOTAL 25(OH) VITAMIN D 29.8 NG/ML (30.0-100.0)
[2021-12-02 18:41] LABS: APPEARANCE, URINE HAZY (CLEAR); BACTERIA, URINE AUTO NEGATIVE (NEGATIVE); BILIRUBIN, URINE AUTO NEGATIVE (NEGATIVE); BLOOD, URINE BLOOD NEGATIVE (NEGATIVE); COLOR, URINE YELLOW (YELLOW); GLUCOSE, URINE (UA) AUTO NEGATIVE (NEGATIVE); KETONE, URINE AUTO TRACE mg/dL (NEGATIVE); LEUKOCYTE ESTERASE, URINE AUTO TRACE (NEGATIVE); NITRITE, URINE AUTO NEGATIVE (NEGATIVE); PROTEIN, URINE AUTO NEGATIVE (NEGATIVE); RBC, URINE AUTO 0 /HPF (0-3); SPECIFIC GRAVITY URINE AUTO 1.018 (1.002-1.035); SQUAMOUS EPITHELIAL CELL UR AU 2 /HPF (0-6); UROBILINOGEN, URINE AUTO 0.2 mg/dL (0.0-2.0); WBC, URINE AUTO 1 /HPF (0-3)
[2021-12-04 10:38] LABS: DRVV SCREEN 35.3 SEC
== END ==
LOC: M SFHCRHEU 15:39
PROVIDERS: ATTEND Internal Medicine
DX: R76.8 Other specified abnormal immunological findings in serum (principal); M06.4 Inflammatory polyarthropathy; M79.10 Myalgia, unspecified site; M25.50 Pain in unspecified joint; Z79.899 Other long term (current) drug therapy

== ENCOUNTER → 2021-12-05 | Outpatient (CLI) | payer MEDICARE | LOC: M WUC 11:20 | PROVIDERS: ATTEND Internal Medicine | DX: M06.4 Inflammatory polyarthropathy (principal); M25.50 Pain in unspecified joint ==

== ENCOUNTER → 2022-01-12 | Outpatient (CLI) | payer MEDICARE | LOC: M WUC 09:55 | PROVIDERS: ATTEND Physician Assistant | DX: R06.02 Shortness of breath (principal); R05.3 Chronic cough ==

== ENCOUNTER → 2022-05-05 | Outpatient (CLI) | payer MEDICARE | LOC: M PAIN 13:00 | PROVIDERS: ATTEND Nurse Practitioner Family | DX: M48.061 Spinal stenosis, lumbar region without neurogenic claudication (principal); I34.1 Nonrheumatic mitral (valve) prolapse; K52.9 Noninfective gastroenteritis and colitis, unspecified; J45.909 Unspecified asthma, uncomplicated; Q63.1 Lobulated, fused and horseshoe kidney; H04.123 Dry eye syndrome of bilateral lacrimal glands; L40.50 Arthropathic psoriasis, unspecified; G62.9 Polyneuropathy, unspecified; Z85.820 Personal history of malignant melanoma of skin; I10 Essential (primary) hypertension; M54.50 Low back pain, unspecified; Z86.16 Personal history of COVID-19; Z79.899 Other long term (current) drug therapy; Z87.891 Personal history of nicotine dependence; Z88.2 Allergy status to sulfonamides; Z91.013 Allergy to seafood; Z91.040 Latex allergy status; Z91.048 Other nonmedicinal substance allergy status ==

== ENCOUNTER → 2022-05-21 | Outpatient (CLI) | payer MEDICARE | LOC: M PAIN 10:15 | PROVIDERS: ATTEND Anesthesiology | DX: Z53.21 Procedure and treatment not carried out due to patient leaving prior to being seen by health care provider (principal) ==

== ENCOUNTER → 2022-06-29 | Outpatient (CLI) | payer MEDICARE ==
[2022-06-29 13:33] LABS: HEMATOCRIT 42.9 % (36.0-47.0); HEMOGLOBIN 13.9 g/dl (12.0-15.5); MEAN CORPUSCULAR HEMOGLOBIN 30.2 pg (27.0-33.0); MEAN CORPUSCULAR HGB CONC 32.4 g/dl (32.0-36.5); MEAN CORPUSCULAR VOLUME 93.3 fl (80.0-96.0); PLATELET COUNT, AUTOMATED 298 10^3/uL (150-450); WHITE BLOOD COUNT 9.2 10^3/uL (4.0-10.0)
[2022-06-29 14:18] LABS: THYROID STIMULATING HORMONE 1.48 uIU/ML (0.358-3.740)
== END ==
LOC: M PLALAB 10:59
PROVIDERS: ATTEND Nurse Practitioner Family
DX: R53.83 Other fatigue (principal); R06.02 Shortness of breath

== ENCOUNTER → 2022-08-25 | Outpatient (CLI) | payer MEDICARE | LOC: M PAIN 09:15 | PROVIDERS: ATTEND Anesthesiology | DX: M48.061 Spinal stenosis, lumbar region without neurogenic claudication (principal); M54.2 Cervicalgia; M54.50 Low back pain, unspecified; G89.29 Other chronic pain; J45.909 Unspecified asthma, uncomplicated; I10 Essential (primary) hypertension; Z87.891 Personal history of nicotine dependence; Z88.2 Allergy status to sulfonamides; Z91.013 Allergy to seafood; Z91.040 Latex allergy status; Z91.09 Other allergy status, other than to drugs and biological substances; Z79.51 Long term (current) use of inhaled steroids; Z79.899 Other long term (current) drug therapy ==

== ENCOUNTER → 2022-09-01 | Outpatient (REF) | payer MEDICARE ==
[2022-09-01 14:08] LABS: TOTAL PROTEIN 6.9 GM/DL (6.4-8.2)
[2022-09-01 14:18] LABS: C REACTIVE PROTEIN QUANTITATIV < 0.40 MG/DL (<1.0)
[2022-09-01 14:19] LABS: IMMUNOGLOBULIN A 426.4 MG/DL (40-350); IMMUNOGLOBULIN G 1190 MG/DL (650-1600)
== END ==
LOC: M SFHCRHEU 09:44
PROVIDERS: ATTEND Internal Medicine
DX: B99.9 Unspecified infectious disease (principal); M06.4 Inflammatory polyarthropathy

== ENCOUNTER → 2022-09-25 | Outpatient (CLI) | payer MEDICARE | LOC: M PAIN 10:45 | PROVIDERS: ATTEND Nurse Practitioner Family | DX: M48.061 Spinal stenosis, lumbar region without neurogenic claudication (principal); G89.29 Other chronic pain; J45.909 Unspecified asthma, uncomplicated; I10 Essential (primary) hypertension; Z87.891 Personal history of nicotine dependence; Z88.2 Allergy status to sulfonamides; Z91.013 Allergy to seafood; Z91.040 Latex allergy status; Z91.09 Other allergy status, other than to drugs and biological substances; Z79.51 Long term (current) use of inhaled steroids; Z79.899 Other long term (current) drug therapy ==

== ENCOUNTER → 2022-11-18 | Outpatient (CLI) | payer MEDICARE | LOC: M PAIN 11:15 | PROVIDERS: ATTEND Anesthesiology | DX: M48.062 Spinal stenosis, lumbar region with neurogenic claudication (principal); G89.29 Other chronic pain; J45.909 Unspecified asthma, uncomplicated; I10 Essential (primary) hypertension; Z87.891 Personal history of nicotine dependence; Z88.2 Allergy status to sulfonamides; Z91.013 Allergy to seafood; Z91.040 Latex allergy status; Z91.09 Other allergy status, other than to drugs and biological substances; Z79.51 Long term (current) use of inhaled steroids; Z79.899 Other long term (current) drug therapy ==

== ENCOUNTER → 2022-12-17 | Outpatient (CLI) | payer MEDICARE | LOC: M PAIN 09:45 | PROVIDERS: ATTEND Nurse Practitioner Family | DX: M48.061 Spinal stenosis, lumbar region without neurogenic claudication (principal); G89.29 Other chronic pain; J45.909 Unspecified asthma, uncomplicated; I10 Essential (primary) hypertension; Z87.891 Personal history of nicotine dependence; Z88.2 Allergy status to sulfonamides; Z88.8 Allergy status to other drugs, medicaments and biological substances; Z91.013 Allergy to seafood; Z91.040 Latex allergy status; Z91.09 Other allergy status, other than to drugs and biological substances; Z79.51 Long term (current) use of inhaled steroids; Z79.899 Other long term (current) drug therapy ==

== ENCOUNTER → 2022-12-23 | Outpatient (CLI) | payer MEDICARE | LOC: M WHC 11:21 | PROVIDERS: ATTEND Physician Assistant | DX: Z12.31 Encounter for screening mammogram for malignant neoplasm of breast (principal) ==

== ENCOUNTER → 2023-01-11 | Outpatient (CLI) | payer MEDICARE | LOC: M PAIN 08:45 | PROVIDERS: ATTEND Nurse Practitioner Family | DX: M48.061 Spinal stenosis, lumbar region without neurogenic claudication (principal); G89.29 Other chronic pain; J45.909 Unspecified asthma, uncomplicated; I10 Essential (primary) hypertension; Z87.891 Personal history of nicotine dependence; Z88.2 Allergy status to sulfonamides; Z88.8 Allergy status to other drugs, medicaments and biological substances; Z91.013 Allergy to seafood; Z91.040 Latex allergy status; Z91.09 Other allergy status, other than to drugs and biological substances; Z79.51 Long term (current) use of inhaled steroids; Z79.899 Other long term (current) drug therapy ==

== ENCOUNTER → 2023-03-18 | Outpatient (CLI) | payer MEDICARE ==
[~2023-03-18] MED LIST changes: +ISOVUE-M 300 61% 15ML VIAL As Ordered ONE; +LIDOCAINE 1% SDV 30ML VIAL As Ordered ONE; +diazePAM 5MG TABLET As Ordered ONE; +methylPREDNISolone SUSP 40MG/ML 1ML VIAL (DEPO MEDROL) As Ordered ONE; +oxyCODONE 5MG TAB As Ordered ONE
== END ==
LOC: M PAIN 14:30
PROVIDERS: ATTEND Anesthesiology
DX: M51.16 Intervertebral disc disorders with radiculopathy, lumbar region (principal); M48.061 Spinal stenosis, lumbar region without neurogenic claudication; G89.29 Other chronic pain; J45.909 Unspecified asthma, uncomplicated; I10 Essential (primary) hypertension; Z87.891 Personal history of nicotine dependence; Z88.2 Allergy status to sulfonamides; Z88.8 Allergy status to other drugs, medicaments and biological substances; Z91.013 Allergy to seafood; Z91.040 Latex allergy status; Z91.09 Other allergy status, other than to drugs and biological substances; Z79.51 Long term (current) use of inhaled steroids; Z79.899 Other long term (current) drug therapy
CPT/HCPCS: 62323; J1030; Q9967

== ENCOUNTER → 2023-05-03 | Outpatient (REF) | payer MEDICARE ==
[~2023-05-03] MED LIST changes: -ISOVUE-M 300 61% 15ML VIAL As Ordered ONE; -LIDOCAINE 1% SDV 30ML VIAL As Ordered ONE; -diazePAM 5MG TABLET As Ordered ONE; -methylPREDNISolone SUSP 40MG/ML 1ML VIAL (DEPO MEDROL) As Ordered ONE; -oxyCODONE 5MG TAB As Ordered ONE
[2023-05-03 16:57] LABS: BASO % 0.4 % (0.0-1.0); EOS # 0.7 10^3/uL (0.0-0.5); EOS % 9.2 % (0.0-3.0); HEMOGLOBIN 12.5 g/dl (12.0-15.5); LYMPH % 27.2 % (24.0-44.0); MEAN CORPUSCULAR HEMOGLOBIN 30.5 pg (27.0-33.0); MEAN CORPUSCULAR HGB CONC 32.1 g/dl (32.0-36.5); MEAN CORPUSCULAR VOLUME 95.1 fl (80.0-96.0); MONO # 0.6 10^3/uL (0.0-0.8); MONO % 7.5 % (2.0-8.0); NEUTROPHILS # 4.1 10^3/uL (1.5-8.5); NEUTROPHILS % 55.4 % (36.0-66.0); PLATELET COUNT, AUTOMATED 253 10^3/uL (150-450); WHITE BLOOD COUNT 7.4 10^3/uL (4.0-10.0)
[2023-05-03 17:12] LABS: ERYTHROCYTE SEDIMENTATION RATE 39 mm/hr (0-30)
[2023-05-03 17:14] LABS: ALBUMIN 3.7 G/DL (3.2-5.2); BILIRUBIN,DIRECT 0.1 MG/DL (<0.4); BILIRUBIN,TOTAL 0.4 MG/DL (0.3-1.2); CREATININE FOR GFR 0.98 MG/DL (0.55-1.30); GLOMERULAR FILTRATION RATE 58.9 (>39); POTASSIUM SERUM 4.5 MMOL/L (3.5-5.1); TOTAL PROTEIN 7.2 G/DL (5.7-8.2)
== END ==
LOC: M SFHCRHEU 12:01
PROVIDERS: ATTEND Internal Medicine
DX: M35.9 Systemic involvement of connective tissue, unspecified (principal)

== ENCOUNTER → 2023-10-12 | Outpatient (CLI) | payer OTHER ==
[2023-10-12 14:49] LABS: BASO # 0.1 10^3/uL (0.0-0.2); EOS # 0.7 10^3/uL (0.0-0.5); EOS % 8.6 % (0.0-3.0); HEMATOCRIT 42.4 % (36.0-47.0); HEMOGLOBIN 13.3 g/dl (12.0-15.5); LYMPH # 2.2 10^3/uL (1.5-5.0); LYMPH % 28.3 % (24.0-44.0); MEAN CORPUSCULAR HEMOGLOBIN 29.9 pg (27.0-33.0); MEAN CORPUSCULAR HGB CONC 31.4 g/dl (32.0-36.5); MEAN CORPUSCULAR VOLUME 95.3 fl (80.0-96.0); MONO # 0.7 10^3/uL (0.0-0.8); MONO % 9.3 % (2.0-8.0); NEUTROPHILS # 4.1 10^3/uL (1.5-8.5); NEUTROPHILS % 52.5 % (36.0-66.0); PLATELET COUNT, AUTOMATED 251 10^3/uL (150-450); RED BLOOD COUNT 4.45 10^6/uL (4.00-5.40); WHITE BLOOD COUNT 7.9 10^3/uL (4.0-10.0)
[2023-10-12 14:58] LABS: ERYTHROCYTE SEDIMENTATION RATE 49 mm/hr (0-30)
[2023-10-12 15:02] LABS: ALBUMIN 3.5 G/DL (3.2-5.2); BILIRUBIN,DIRECT 0.1 MG/DL (<0.4); BILIRUBIN,TOTAL 0.4 MG/DL (0.3-1.2); CALCIUM LEVEL 9.2 MG/DL (8.3-10.6); GLOMERULAR FILTRATION RATE 57.5 (>39); POTASSIUM SERUM 4.9 MMOL/L (3.5-5.1); TOTAL PROTEIN 7.1 G/DL (5.7-8.2)
== END ==
LOC: M WUC 08:42
PROVIDERS: ATTEND Internal Medicine
DX: M35.9 Systemic involvement of connective tissue, unspecified (principal)

== ENCOUNTER → 2024-02-16 | Outpatient (REF) | payer OTHER ==
[2024-02-16 13:07] LABS: HEMATOCRIT 40.1 % (36.0-47.0); HEMOGLOBIN 13.3 g/dl (12.0-15.5); MEAN CORPUSCULAR HEMOGLOBIN 31.1 pg (27.0-33.0); MEAN CORPUSCULAR HGB CONC 33.2 g/dl (32.0-36.5); MEAN CORPUSCULAR VOLUME 93.7 fl (80.0-96.0); PLATELET COUNT, AUTOMATED 248 10^3/uL (150-450); RED BLOOD COUNT 4.28 10^6/uL (4.00-5.40); WHITE BLOOD COUNT 6.2 10^3/uL (4.0-10.0)
[2024-02-16 13:35] LABS: ALBUMIN 3.5 G/DL (3.2-5.2); BILIRUBIN,TOTAL 0.7 MG/DL (0.3-1.2); CALCIUM LEVEL 9.2 MG/DL (8.3-10.6); CHOLESTEROL RISK RATIO 3.78 (<5); CREATININE FOR GFR 1.05 MG/DL (0.55-1.30); GLOMERULAR FILTRATION RATE 54.4 (>39); HDL CHOLESTEROL 51.5 MG/DL (>40); LDL CHOLESTEROL 122.9 MG/DL (<100); NON-HDL-C 143.5 MG/DL
[2024-02-16 13:36] LABS: THYROID STIMULATING HORMONE 0.798 uIU/ML (0.55-4.78)
== END ==
LOC: M LABWUC 10:26 → M LAB REF 10:26
PROVIDERS: ATTEND Physician Assistant
DX: I10 Essential (primary) hypertension (principal); E78.5 Hyperlipidemia, unspecified

== ENCOUNTER → 2025-05-08 | Outpatient (CLI) | payer MEDICARE, OTHER | LOC: M WUC 09:00 | PROVIDERS: ATTEND Physician Assistant | DX: M17.12 Unilateral primary osteoarthritis, left knee (principal); M25.562 Pain in left knee ==

== ENCOUNTER → 2025-05-16 | Outpatient (CLI) | payer MEDICARE ==
[2025-05-16 14:15] LABS: BASO # 0.0 10^3/uL (0.0-0.2); BASO % 0.1 % (0.0-1.0); EOS # 0.0 10^3/uL (0.0-0.5); EOS % 0.1 % (0.0-3.0); LYMPH # 1.6 10^3/uL (1.5-5.0); LYMPH % 11.0 % (24.0-44.0); MONO # 0.6 10^3/uL (0.0-0.8); MONO % 4.2 % (2.0-8.0); NEUTROPHILS # 11.8 10^3/uL (1.5-8.5); NEUTROPHILS % 83.8 % (36.0-66.0); PLATELET COUNT, AUTOMATED 284 10^3/uL (150-450)
[2025-05-16 14:30] LABS: INR 0.96
[2025-05-16 14:49] LABS: ALT/SGPT 18.0 U/L (7.0-40); AST/SGOT 15.0 U/L (<34); CALCIUM LEVEL 9.2 MG/DL (8.3-10.6); CARBON DIOXIDE LEVEL 27.0 MMOL/L (20-31); CHLORIDE LEVEL 102.0 MMOL/L (98-107); CREATININE FOR GFR 0.95 MG/DL (0.55-1.30); GLOMERULAR FILTRATION RATE 61.7 (>39); IRON (FE) 126.0 UG/DL (50-170); PERCENT SATURATION 40.9 % (13.2-45.0); POTASSIUM SERUM 4.4 MMOL/L (3.5-5.1); SODIUM LEVEL 140.0 MMOL/L (136-145)
== END ==
LOC: M WUC 11:52
PROVIDERS: ATTEND Orthopaedic Surgery
DX: Z01.818 Encounter for other preprocedural examination (principal); M25.562 Pain in left knee; Z79.01 Long term (current) use of anticoagulants